=== PATIENT | female | born 1930 | race Caucasian/White ===

== ENCOUNTER 2016-02-21 17:25 | Emergency (ER) | payer MEDICARE, OTHER ==
--- NOTE | 2016-02-21 18:33 | RAD ---
Indication: Medial RIGHT knee pain and swelling. No known injury. Comparison: March 04, 2014 DEXA scan remarkable for osteoporosis. Technique: AP, tunnel, crosstable lateral, sunrise views RIGHT knee. Report: Normal articular alignment. Bone density appears decreased throughout. No cortical disruption or suspicious trabecular irregularity to suggest fracture. Negative for joint effusion. Tricompartmental osteophytosis. Moderately severe lateral joint space narrowing. Diffuse skeletal muscle atrophy. Unremarkable soft tissue contours. IMPRESSION: Negative for fracture. Osteoarthritis.
[2016-02-21 18:55] LABS: Hematocrit 40 % (35-47); Hemoglobin 12.2 g/dl (12.0-16.0); Mean Corpuscular HGB Conc 31 g/dl (31-36); Mean Corpuscular Hemoglobin 25 pg (27-31); Mean Corpuscular Volume 81 fL (80-97); Mean Platelet Volume 7 um3 (7.4-10.4); Red Blood Count 4.86 10^6/ul (4.0-5.4); Red Cell Distribution Width 17 % (10.5-15); White Blood Count 8.2 10^3/ul (3.5-10.8)
[2016-02-21 18:56] LABS: Comments Flag Yes
--- NOTE | 2016-02-21 19:07 | RAD ---
Indication: Back pain following injury. Comparison: May 22, 2013 CT. Technique: Noncontrast CT lumbar sacral spine. Multiplanar reformation. Report: 3.2 cm exophytic cyst lower pole LEFT kidney without gross change. Normal variant RIGHT extrarenal pelvis. Anterior and middle column and moderately severe compression fracture of L1 with worsening compared with the May 22, 2013 exam. Suggestion of new trabecular impaction at the superior endplate and minimal air vertebral hematoma favors acute component to the fracture. Up to 3 mm dorsal bulging of the middle column without significant resulting acquired spinal stenosis secondary to the fracture. No additional vertebral body or posterior element fractures within the [id number]. Normal vertebral alignment without significant spondylolisthesis at any level. T12-L1: Unremarkable for age. L1-L2: Mild annular disc bulge. Dorsal bulging of the inferior endplate of L1 and facet joint osteoarthritis results in moderate bilateral foraminal stenosis without significant change. L2-L3: Mild annular disc bulge and posterior element osteoarthritis results in mild alteration in the shape of the thecal sac without significant resulting central canal stenosis. Resulting mild bilateral foraminal stenosis without significant change. L3-L4: Mild annular disc bulge and posterior element osteoarthritis results in alteration in the shape of the thecal sac without significant central canal stenosis. Resulting mild RIGHT and moderate LEFT foraminal stenosis without significant change. L4-L5: Mild annular disc bulge and posterior element osteoarthritis results in mild alteration in the shape of the thecal sac without significant resulting central canal stenosis. Resulting slight bilateral foraminal stenosis without change. L5-S1: Unremarkable for age. 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 IMPRESSION: 1. Acute or subacute worsening of two column compression fracture at L1 as described. Minimal associated anterior and lateral paravertebral hematoma. 2. Dorsal bulging of the inferior endplate of L1 and facet joint osteoarthritis results in moderate bilateral foraminal stenosis at L1-L2 without significant change. 3. Additional multilocular degenerative findings with associated mild to moderate foraminal stenosis as described.
[2016-02-21 19:15] LABS: Albumin 3.6 g/dL (3.2-5.2); C Reactive Protein 33.03 mg/L (< 5.00); Calcium 8.9 mg/dL (8.6-10.3); EGFR African American 113.7 (>60); EGFR Non-African American 88.4 (>60); Globulin 3.5 g/dL (2-4); Potassium 4.2 mmol/L (3.5-5.0); Total Bilirubin 0.4 mg/dL (0.2-1.0); Total Protein 7.1 g/dL (6.4-8.9)
[2016-02-21 20:29] VITALS: BP 146/91
--- NOTE | 2016-02-21 23:48 | ED ---
Omari Nuñez Adam, scribed for Darrick Travis MD on 02/21/16 at 1752 . Complex/Multi-Sys Presentation - HPI Summary HPI Summary: Pt is an 85 year old female presenting with pain in her right knee and both flanks. She fell on (8 days ago) and has had the right knee pain and bilateral flank pain ever since. The knee pain is worse with inward rotation. She has pain in both flanks but denies any pain in the center of her back. She went to [address] [place] [address] today but they did not do any X-rays. She was sent to the ED because she was found to be in A Fib. She states that she has been on Tikosyn since December and her doctor in [place] discussed doing an ablation but has not done so. PMHx includes arthritis, osteoporosis, ICD, and HLD. - History Of Current Complaint Chief Complaint: EDDysrhythmPalp Time Seen by Provider: 02/21/16 17:38 Hx Obtained From: Patient Onset/Duration: Sudden Onset, Lasting Days, Still Present Timing: Constant Severity Currently: Moderate Severity Initially: Moderate Location: Pain At: - Right knee, both flanks Aggravating Factor(s): Rotating right knee inward Alleviating Factor(s): Nothing - Allergies/Home Medications Allergies/Adverse Reactions: Allergies Allergy/AdvReac Type Severity Reaction Status Date / Time Bee Venom Allergy Unknown Verified 02/21/16 17:32 Reaction Details Sulfa Antibiotics Allergy Rash Verified 02/21/16 17:32 IVP DYE Allergy Hives Uncoded 02/21/16 17:32 THYLIUM Allergy Hives Uncoded 02/21/16 17:32 PMH/Surg Hx/FS Hx/Imm Hx Endocrine/Hematology History: Denies: Hx Blood Disorders, Hx Blood Transfusions, Hx Bone Marrow Disease, Hx Diabetes, Hx Systemic Lupus Erythematosus, Hx Sickle Cell Disease, Hx Thyroid Disease, Hx Anemia, Hx Unexplained Bleeding, Other Endocrine/ Hematological Disorders Cardiovascular History: Reports: Hx Hypercholesterolemia, Hx Pacemaker/ICD - 9/ 14/15, Other Cardiovascular Problems/Disorders - Afib Denies: Hx Aneurysm, Hx Angina, Hx Angioplasty, Hx Auto Implanted Cardiovert Defib, Hx Cardiac Arrest, Hx Cardiomegaly, Hx Congenital Heart Disease, Hx Congestive Heart Failure, Hx Coronary Artery Disease, Hx Deep Vein Thrombosis, Hx Embolism, Hx Hypotension, Hx Hypertension, Hx Peripheral Vascular Disease, Hx Rheumatic Fever, Hx Syncope, Hx Valvular Heart Disease Respiratory History: Denies: Hx Asthma, Hx Chronic Bronchitis, Hx Chronic Obstructive Pulmonary Disease (COPD), Hx Cystic Fibrosis, Hx Lung Cancer, Hx Pleural Effusion, Hx Pneumonia, Hx Pulmonary Edema, Hx Pulmonary Embolism, Hx Seasonal Allergies, Hx Sleep Apnea, Other Respiratory Problems/Disorders GI History: Reports: Hx Diverticulosis, Hx Irritable Bowel, Other GI Disorders - duodenal ulcers Denies: Hx Cirrhosis, Hx Crohn's Disease, Hx Gall Bladder Disease, Hx Gastroesophageal Reflux Disease, Hx Gastrointestinal Bleed, Hx Jaundice, Hx Obstructive Bowel, Hx Ileostomy, Hx Pyloric Stenosis, Hx Ulcer History: Denies: Hx Acute Renal Failure, Hx Benign Prostatic Hyperplasia, Hx Chronic Renal Failure, Hx Dialysis, Hx Kidney Infection, Hx Kidney Stones, Other Problems/Disorders Musculoskeletal History: Reports: Hx Arthritis, Hx Back Problems, Hx Orthopedic Injury - compression fx lower back, Hx Osteoporosis Denies: Hx Bursitis, Hx Congenital Bone Abnormalities, Hx Fibromyalgia, Hx Gout, Hx Scoliosis, Hx Tendonitis, Other Musculoskeletal History Sensory History: Reports: Hx Cataracts, Hx Contacts or Glasses, Hx Hearing Aid Denies: Hx Eye Injury, Hx Eye Prosthesis, Hx Glaucoma, Hx Legally Blind, Hx Macular Degeneration, Hx Vision Problem, Hx Deafness, Hx Hearing Problem, Other Sensory Impairments Opthamlomology History: Reports: Hx Cataracts, Hx Contacts or Glasses Denies: Hx Eye Injury, Hx Eye Prosthesis, Hx Glaucoma, Hx Legally Blind, Hx Macular Degeneration, Hx Vision Problem, Other Sensory Impairments Neurological History: Reports: Hx Migraine Denies: Hx Dementia, Hx Developmental Delay, Hx Headaches, Hx Nerve Disease, Hx Seizures, Hx Spinal Cord Injury, Hx Transient Ischemic Attacks (TIA), Other Neuro Impairments/Disorders Psychiatric History: Denies: Hx Anxiety, Hx Attention Deficit Hyperactivity Disorder, Hx Eating Disorder, Hx Depression, Hx Panic Disorder, Hx Post Traumatic Stress Disorder, Hx Inpatient Treatment, Hx Community Mental Health Tx, Hx Schizophrenia, Hx Bipolar Disorder, Hx Suicide Attempt, Hx of Violent Episodes Against Others, Hx Substance Abuse, Other Psychiatric Issues/Disorders - Cancer History Hx Chemotherapy: No Hx Radiation Therapy: No Hx Palliative Cancer Treatment: No - Surgical History Surgery Procedure, Year, and Place: HYSTERECTOMY 1987. cataract removal Hx Anesthesia Reactions: No - Immunization History Date of Tetanus Vaccine: PT STATES UNSURE Date of Influenza Vaccine: NONE Infectious Disease History: No Infectious Disease History: Reports: Hx Shingles Denies: Hx Clostridium Difficile, Hx Hepatitis, Hx Human Immunodeficiency Virus (HIV), Hx of Known/Suspected MRSA, Hx Tuberculosis, Hx Known/Suspected VRE , Hx Known/Suspected VRSA, History Other Infectious Disease, Traveled Outside the [place] in Last 30 Days - Social History Occupation: Retired Lives: With Family - Alcohol Use: Rare Hx Substance Use: No Substance Use Type: Reports: None Hx Tobacco Use: Yes Smoking Status (MU): Former Smoker Have You Smoked in the Last Year: No Review of Systems Constitutional: Negative Negative: Fever Positive: Other - A Fib Positive: flank pain - Bilaterally Positive: Arthralgia - Right knee All Other Systems Reviewed And Are Negative: Yes Physical Exam Triage Information Reviewed: Yes Vital Signs On Initial Exam: Initial Vitals Temp Pulse Resp BP Pulse Ox 98.4 F 94 16 134/79 100 02/21/16 17:28 02/21/16 17:28 02/21/16 17:28 02/21/16 17:28 02/21/16 17:28 Vital Signs Reviewed: Yes Appearance: Positive: Well-Appearing, No Pain Distress Skin: Positive: Warm, Skin Color Reflects Adequate Perfusion, Dry Head/Face: Positive: Normal Head/Face Inspection Eyes: Positive: Normal ENT: Positive: Normal ENT inspection Neck: Positive: Supple, Nontender Respiratory/Lung Sounds: Positive: Clear to Auscultation, Breath Sounds Present Cardiovascular: Positive: RRR Abdomen Description: Positive: Nontender, Soft Bowel Sounds: Positive: Present Musculoskeletal: Positive: Other - Positive Eli's test in right knee Neurological: Positive: Normal Psychiatric: Positive: Normal, Affect/Mood Appropriate Diagnostics - Vital Signs Vital Signs Temp Pulse Resp BP Pulse Ox 02/21/16 17:28 98.4 F 94 16 134/79 100 - Laboratory Lab Results: Lab Results 02/21/16 02/21/16 Range/Units 18:30 18:30 WBC 8.2 (3.5-10.8) 10^3/ul RBC 4.86 (4.0-5.4) 10^6/ul Hgb 12.2 (12.0-16.0) g/dl Hct 40 (35-47) % MCV 81 (80-97) fL MCH 25 L (27-31) pg MCHC 31 (31-36) g/dl RDW 17 H (10.5-15) % Plt Count 238 (150-450) 10^3/ul MPV 7 L (7.4-10.4) um3 Neut % (Auto) 84.6 H (38-83) % Lymph % (Auto) 6.7 L (25-47) % Edgar % (Auto) 7.3 (1-9) % Eos % (Auto) 0.6 (0-6) % Baso % (Auto) 0.8 (0-2) % Absolute Neuts (auto) 6.9 (1.5-7.7) 10^3/ul Absolute Lymphs (auto) 0.5 L (1.0-4.8) 10^3/ul Absolute Monos (auto) 0.6 (0-0.8) 10^3/ul Absolute Eos (auto) 0 (0-0.6) 10^3/ul Absolute Basos (auto) 0.1 (0-0.2) 10^3/ul Absolute Nucleated RBC 0.01 10^3/ul Nucleated RBC % 0.1 Sodium 131 L (133-145) mmol/L Potassium 4.2 (3.5-5.0) mmol/L Chloride 99 L (101-111) mmol/L Carbon Dioxide 26 (22-32) mmol/L Anion Gap 6 (2-11) mmol/L BUN 16 (6-24) mg/dL Creatinine 0.64 (0.51-0.95) mg/dL Est GFR ( Amer) 113.7 (>60) Est GFR (Non-Af Amer) 88.4 (>60) BUN/Creatinine Ratio 25.0 H (8-20) Glucose 99 (70-100) mg/dL Calcium 8.9 (8.6-10.3) mg/dL Total Bilirubin 0.40 (0.2-1.0) mg/dL AST 15 (13-39) U/L ALT 9 (7-52) U/L Alkaline Phosphatase 46 (34-104) U/L C-Reactive Protein 33.03 H (< 5.00) mg/L Total Protein 7.1 (6.4-8.9) g/dL Albumin 3.6 (3.2-5.2) g/dL Globulin 3.5 (2-4) g/dL Albumin/Globulin Ratio 1.0 (1-3) Result Diagrams: 02/21/16 18:30 02/21/16 18:30 Lab Statement: Any lab studies that have been ordered have been reviewed, and results considered in the medical decision making process. - Radiology Right Knee Radiology Interpretation Completed By: Radiologist - IMPRESSION: NEGATIVE FOR FRACTURE. OSTEOARTHRITIS. - CT LUMBAR SPINE CT Interpretation Completed By: Radiologist - IMPRESSION: 1. Acute or subacute worsening of two column compression fracture at L1 as described. Minimal associated anterior and lateral paravertebral hematoma. 2. Dorsal bulging of the inferior endplate of L1 and facet joint osteoarthritis results in moderate bilateral foraminal stenosis at L1-L2 without significant change. 3. Additional multilocular degenerative findings with associated mild to moderate foraminal stenosis as described. - EKG 17:36 Cardiac Rate: NL - 99 BPM Ectopy: PACs - Occasional EKG Interpretation: Atrial-paced with occasional PAC Complex Multi-Symp Course/Dx Course Of Treatment: Ms. Gallardo was sent over from [facility] because she was in A- Fib (chronically) at a rapid rate. By the time she got here, her rate was controlled and remained so while she was here (monitored). She originally went to [facility] because she fell about a week ago and her back and right knee have been hurting since. She was noted on CT to have aggravated a compression fracture at L1 and will be treated symptomatically. - Diagnoses Provider Diagnoses: Compression fracture Discharge - Discharge Plan Condition: Stable Disposition: HOME Patient Education Materials: Vertebral Compression Fracture (ED) Referrals: Cassie Sim MD [Primary Care Provider] - Additional Instructions: Follow up with Dr. Sim. The documentation as recorded by the Omari goodman Adam accurately reflects the service I personally performed and the decisions made by me, Darrick Travis MD.
[2016-02-22 09:31] LABS: Manual Entry Verification BM; Rapid HIV INT CONT QC Line Present; Rapid HIV Kit Lot# F190062
[2016-02-23 10:37] LABS: Magnesium 1.8 mg/dL (1.9-2.7)
[2016-02-23 11:38] LABS: TSH (Thyroid Stimulating Horm) 5.19 mcIU/mL (0.34-5.60)
== END 2016-02-21 20:29 | disposition home or self-care (01) ==
LOC: ED 17:25
DX: S32.019A Unspecified fracture of first lumbar vertebra, initial encounter for closed fracture (principal); M17.11 Unilateral primary osteoarthritis, right knee; M25.561 Pain in right knee; I48.91 Unspecified atrial fibrillation; Z87.09 Personal history of other diseases of the respiratory system; Z86.79 Personal history of other diseases of the circulatory system; Z87.19 Personal history of other diseases of the digestive system; Z86.2 Personal history of diseases of the blood and blood-forming organs and certain disorders involving the immune mechanism; Z87.891 Personal history of nicotine dependence; W19.XXXA Unspecified fall, initial encounter; Y93.9 Activity, unspecified; Y92.9 Unspecified place or not applicable; Y99.9 Unspecified external cause status
CPT/HCPCS: 36415; 72131; 80053; 80074; 83735; 84443; 85025; 86140; 86703; 93005; 99282

== ENCOUNTER 2016-02-24 20:33 | Emergency (ER) | payer MEDICARE, OTHER ==
[2016-02-24 21:17] LABS: Hematocrit 42 % (35-47); Hemoglobin 12.9 g/dl (12.0-16.0); Mean Corpuscular HGB Conc 31 g/dl (31-36); Mean Corpuscular Hemoglobin 25 pg (27-31); Mean Corpuscular Volume 80 fL (80-97); Mean Platelet Volume 7 um3 (7.4-10.4); Red Blood Count 5.22 10^6/ul (4.0-5.4); Red Cell Distribution Width 17 % (10.5-15); White Blood Count 12.5 10^3/ul (3.5-10.8)
[2016-02-24 21:32] LABS: BUN/Creatinine Ratio 31.4 (8-20); Calcium 9.2 mg/dL (8.6-10.3); Comments Flag Yes; EGFR African American 102.5 (>60); EGFR Non-African American 79.7 (>60); Potassium 4.2 mmol/L (3.5-5.0)
[2016-02-24 21:33] LABS: Add Diff/Slide Review? Slide Review Added
--- NOTE | 2016-02-24 21:47 | ED ---
Margaret Nuñez Claudia, scribed for Emile Santana MD on 02/24/16 at 2048 . Palpitations / Dysrhythmia - HPI Summary HPI Summary: 85 year old female presents to the ED with dysrythmia. Pt notes that she was at her annual Physical Exam with Dr. Sim when she went into AFib( around 17: 00). She notes that she converted upon arrival to ED. Pt denied CP, SOB. PMHx of AFib is noted. - History of Current Complaint Chief Complaint: EDDysrhythmPalp Time Seen by Provider: 02/24/16 20:38 Hx Obtained From: Patient Onset/Duration: Sudden Onset, Resolved Character: Irregular - Afib Aggravating: Nothing Alleviating: Nothing - Allergy/Home Medications Allergies/Adverse Reactions: Allergies Allergy/AdvReac Type Severity Reaction Status Date / Time Bee Venom Allergy Unknown Verified 02/21/16 17:32 Reaction Details Sulfa Antibiotics Allergy Rash Verified 02/21/16 17:32 IVP DYE Allergy Hives Uncoded 02/21/16 17:32 THYLIUM Allergy Hives Uncoded 02/21/16 17:32 PMH/Surg Hx/FS Hx/Imm Hx Previously Healthy: Yes Endocrine/Hematology History: Denies: Hx Blood Disorders, Hx Blood Transfusions, Hx Bone Marrow Disease, Hx Diabetes, Hx Systemic Lupus Erythematosus, Hx Sickle Cell Disease, Hx Thyroid Disease, Hx Anemia, Hx Unexplained Bleeding, Other Endocrine/ Hematological Disorders Cardiovascular History: Reports: Hx Hypercholesterolemia, Hx Pacemaker/ICD - 9/ 14/15, Other Cardiovascular Problems/Disorders - Afib Denies: Hx Aneurysm, Hx Angina, Hx Angioplasty, Hx Auto Implanted Cardiovert Defib, Hx Cardiac Arrest, Hx Cardiomegaly, Hx Congenital Heart Disease, Hx Congestive Heart Failure, Hx Coronary Artery Disease, Hx Deep Vein Thrombosis, Hx Embolism, Hx Hypotension, Hx Hypertension, Hx Peripheral Vascular Disease, Hx Rheumatic Fever, Hx Syncope, Hx Valvular Heart Disease Respiratory History: Denies: Hx Asthma, Hx Chronic Bronchitis, Hx Chronic Obstructive Pulmonary Disease (COPD), Hx Cystic Fibrosis, Hx Lung Cancer, Hx Pleural Effusion, Hx Pneumonia, Hx Pulmonary Edema, Hx Pulmonary Embolism, Hx Seasonal Allergies, Hx Sleep Apnea, Other Respiratory Problems/Disorders GI History: Reports: Hx Diverticulosis, Hx Irritable Bowel, Other GI Disorders - duodenal ulcers Denies: Hx Cirrhosis, Hx Crohn's Disease, Hx Gall Bladder Disease, Hx Gastroesophageal Reflux Disease, Hx Gastrointestinal Bleed, Hx Jaundice, Hx Obstructive Bowel, Hx Ileostomy, Hx Pyloric Stenosis, Hx Ulcer History: Denies: Hx Acute Renal Failure, Hx Benign Prostatic Hyperplasia, Hx Chronic Renal Failure, Hx Dialysis, Hx Kidney Infection, Hx Kidney Stones, Other Problems/Disorders Musculoskeletal History: Reports: Hx Arthritis, Hx Back Problems, Hx Orthopedic Injury - compression fx lower back, Hx Osteoporosis Denies: Hx Bursitis, Hx Congenital Bone Abnormalities, Hx Fibromyalgia, Hx Gout, Hx Scoliosis, Hx Tendonitis, Other Musculoskeletal History Sensory History: Reports: Hx Cataracts, Hx Contacts or Glasses, Hx Hearing Aid Denies: Hx Eye Injury, Hx Eye Prosthesis, Hx Glaucoma, Hx Legally Blind, Hx Macular Degeneration, Hx Vision Problem, Hx Deafness, Hx Hearing Problem, Other Sensory Impairments Opthamlomology History: Reports: Hx Cataracts, Hx Contacts or Glasses Denies: Hx Eye Injury, Hx Eye Prosthesis, Hx Glaucoma, Hx Legally Blind, Hx Macular Degeneration, Hx Vision Problem, Other Sensory Impairments Neurological History: Reports: Hx Migraine Denies: Hx Dementia, Hx Developmental Delay, Hx Headaches, Hx Nerve Disease, Hx Seizures, Hx Spinal Cord Injury, Hx Transient Ischemic Attacks (TIA), Other Neuro Impairments/Disorders Psychiatric History: Denies: Hx Anxiety, Hx Attention Deficit Hyperactivity Disorder, Hx Eating Disorder, Hx Depression, Hx Panic Disorder, Hx Post Traumatic Stress Disorder, Hx Inpatient Treatment, Hx Community Mental Health Tx, Hx Schizophrenia, Hx Bipolar Disorder, Hx Suicide Attempt, Hx of Violent Episodes Against Others, Hx Substance Abuse, Other Psychiatric Issues/Disorders - Cancer History Hx Chemotherapy: No Hx Radiation Therapy: No Hx Palliative Cancer Treatment: No - Surgical History Surgery Procedure, Year, and Place: HYSTERECTOMY 1987. cataract removal Hx Anesthesia Reactions: No - Immunization History Date of Tetanus Vaccine: PT STATES UNSURE Date of Influenza Vaccine: NONE Infectious Disease History: Reports: Hx Shingles Denies: Hx Clostridium Difficile, Hx Hepatitis, Hx Human Immunodeficiency Virus (HIV), Hx of Known/Suspected MRSA, Hx Tuberculosis, Hx Known/Suspected VRE , Hx Known/Suspected VRSA, History Other Infectious Disease, Traveled Outside the [place] in Last 30 Days - Social History Occupation: Retired Lives: With Family Alcohol Use: Rare Hx Substance Use: No Substance Use Type: Reports: None Hx Tobacco Use: Yes Smoking Status (MU): Former Smoker Have You Smoked in the Last Year: No Review of Systems Constitutional: Negative Negative: Fever Eyes: Negative ENT: Negative Positive: Other - irregular rhythm- reolsv. Negative: Chest Pain - irregular rhythm- resolved upon arrival Negative: Shortness Of Breath Gastrointestinal: Negative Genitourinary: Negative Musculoskeletal: Negative Skin: Negative Neurological: Negative Psychological: Normal All Other Systems Reviewed And Are Negative: Yes Physical Exam Triage Information Reviewed: Yes Vital Signs On Initial Exam: Initial Vitals Temp Pulse Resp BP Pulse Ox 98.8 F 83 20 99/67 95 02/24/16 21:17 02/24/16 21:17 02/24/16 21:17 02/24/16 21:17 02/24/16 21:17 Vital Signs Reviewed: Yes Appearance: Positive: Well-Appearing, No Pain Distress Skin: Positive: Warm Eyes: Positive: MELBA ENT: Positive: Hearing grossly normal Neck: Positive: Supple Respiratory/Lung Sounds: Positive: Clear to Auscultation, Breath Sounds Present Cardiovascular: Positive: Normal, RRR Abdomen Description: Positive: Nontender, Soft Bowel Sounds: Positive: Present Neurological: Positive: Sensory/Motor Intact, Alert, Oriented to Person Place, Time Psychiatric: Positive: Normal AVPU Assessment: Alert Diagnostics - Vital Signs Vital Signs Temp Pulse Resp BP Pulse Ox 02/24/16 21:17 98.8 F 83 20 99/67 95 - Laboratory Lab Results: Lab Results 02/24/16 02/24/16 02/24/16 Range/Units 21:05 21:05 21:05 WBC 12.5 H (3.5-10.8) 10^3/ul RBC 5.22 (4.0-5.4) 10^6/ul Hgb 12.9 (12.0-16.0) g/dl Hct 42 (35-47) % MCV 80 (80-97) fL MCH 25 L (27-31) pg MCHC 31 (31-36) g/dl RDW 17 H (10.5-15) % Plt Count 275 (150-450) 10^3/ul MPV 7 L (7.4-10.4) um3 Neut % (Auto) 87.0 H (38-83) % Lymph % (Auto) 6.2 L (25-47) % [place] % (Auto) 6.1 (1-9) % Eos % (Auto) 0.2 (0-6) % Baso % (Auto) 0.5 (0-2) % Absolute Neuts (auto) 10.8 H (1.5-7.7) 10^3/ul Absolute Lymphs (auto) 0.8 L (1.0-4.8) 10^3/ul Absolute Monos (auto) 0.8 (0-0.8) 10^3/ul Absolute Eos (auto) 0 (0-0.6) 10^3/ul Absolute Basos (auto) 0.1 (0-0.2) 10^3/ul Absolute Nucleated RBC 0 10^3/ul Nucleated RBC % 0 INR (Anticoag Therapy) 1.36 H (0.89-1.11) Sodium 128 L (133-145) mmol/L Potassium 4.2 (3.5-5.0) mmol/L Chloride 105 (101-111) mmol/L Carbon Dioxide 26 (22-32) mmol/L Anion Gap -3 L (2-11) mmol/L BUN 22 (6-24) mg/dL Creatinine 0.70 (0.51-0.95) mg/dL Est GFR ( Amer) 102.5 (>60) Est GFR (Non-Af Amer) 79.7 (>60) BUN/Creatinine Ratio 31.4 H (8-20) Glucose 122 H (70-100) mg/dL Calcium 9.2 (8.6-10.3) mg/dL Magnesium 2.0 (1.9-2.7) mg/dL Result Diagrams: 02/24/16 21:05 02/24/16 21:05 Lab Statement: Any lab studies that have been ordered have been reviewed, and results considered in the medical decision making process. - EKG 20:39 Cardiac Rate: NL EKG Rhythm: Sinus Rhythm - NSR: 83 beats/min Re-Evaluation - Re-Evaluation 1 Re-Evaluation Time: 21:52 Change: Improved Comment: pt is still in nomal sinus rhythm Course/Dx - Course Assessment/Plan: Pt presents to ED wiht atrial fibrillation but has converted to NSR upon arriving in the ED. After some observation the pt is still in NSR and is agreeable with the plan to be d/c home with follow-up with PCP this week. - Diagnoses Provider Diagnoses: Paroxysmal atrial fibrillation Discharge - Discharge Plan Condition: Stable Disposition: HOME Patient Education Materials: Atrial Fibrillation (ED) Referrals: Cassie Sim MD [Primary Care Provider] - 2 Days (Please follow-up ) The documentation as recorded by the Margaret goodman Claudia accurately reflects the service I personally performed and the decisions made by me, Emile Santana MD.
[2016-02-24 22:10] VITALS: BP 106/76
== END 2016-02-24 22:09 | disposition home or self-care (01) ==
LOC: ED 20:33
DX: I48.91 Unspecified atrial fibrillation (principal); Z87.891 Personal history of nicotine dependence; E78.00 Pure hypercholesterolemia, unspecified; Z95.810 Presence of automatic (implantable) cardiac defibrillator; Z88.2 Allergy status to sulfonamides
CPT/HCPCS: 36415; 80048; 83735; 85025; 85610; 93005

== ENCOUNTER 2016-03-14 10:25 | Emergency (ER) | payer MEDICARE, OTHER ==
[2016-03-14] MEDS ORDERED: NS 0.9% 1000 ML* 1,000 ML IV SCH (13:15)
--- NOTE | 2016-03-14 14:02 | RAD ---
HISTORY: Weakness, falls COMPARISONS: None TECHNIQUE: Multiple contiguous axial CT scans were obtained of the cervical spine without intravenous contrast, with coronal and sagittal multiplanar reformations. FINDINGS: BRAIN: The visualized brain is unremarkable CENTRAL CANAL: Evaluation of the central canal is limited on CT technique; however, there is no obvious canalicular mass or epidural hemorrhage. ALIGNMENT: There is straightening of the cervical lordosis. VERTEBRAL BODIES: There is diffuse osteopenia. There is multilevel anterolateral marginal osteophyte formation. There is no displaced fracture. JOINTS: There is diffuse uncovertebral and facet osteoarthritis. There is osteoarthritis of the atlantoaxial articulation. MUSCULATURE: Unremarkable INTERVERTEBRAL DISCS: There is diffuse loss of intervertebral disc height. AXIAL IMAGES: C2-C3: There is no osseous neural foraminal narrowing or central canal stenosis. C3-C4: There is no osseous neural foraminal narrowing or central canal stenosis. C4-C5: There is no osseous neural foraminal narrowing or central canal stenosis. C5-C6: There is no osseous neural foraminal narrowing or central canal stenosis. C6-C7: There is no osseous neural foraminal narrowing or central canal stenosis. C7-T1: There is no osseous neural foraminal narrowing or central canal stenosis. SOFT TISSUES: The visualized soft tissues of the neck are unremarkable. The prevertebral fat stripe is preserved. There is a calcified granuloma of the right lung apex. OTHER: None. IMPRESSION: 1. OSTEOPENIA. 2. DEGENERATIVE DISC DISEASE AND OSTEOARTHRITIS. 3. NO ACUTE OSSEOUS INJURY TO THE CERVICAL SPINE
--- NOTE | 2016-03-14 14:03 | RAD ---
Indication: Fall, head injury. Patient on anticoagulants. CT of the brain was performed without IV contrast. Comparison is made with previous exam dated January 29, 2015 Ventricular structures are midline. No midline shift is noted. The extraction spaces are unremarkable. There is no evidence of intracranial mass or hemorrhage. No other high or low density lesions are identified. Mastoid air cells and paranasal sinuses are unremarkable. Sebaceous cyst is noted in the left frontal area. This is partially calcified. IMPRESSION: No intracranial mass or hemorrhage is noted.
--- NOTE | 2016-03-14 14:11 | RAD ---
Indication: Fall, weakness. CT of the lumbar spine was obtained in the axial plane. Sagittal and coronal reconstructed images were obtained. Comparison is made with previous exam dated February 21, 2016. There is 50-75% compression of the L1 vertebra. This has progressed slightly since 03-07. A small amount of paravertebral soft tissue swelling is noted. L2, L3, L4 and L5 demonstrates no compression. At L3-L4 broad-based protrusion flattens the thecal sac. Moderate facet arthropathy is noted. At L4-L5 broad-based extrusion flattens the thecal sac. No central or foraminal stenosis is noted. IMPRESSION: There has been compression of the L1 vertebra which is slightly progressed when compared to previous exam of February 21, 2016. Degenerative disc disease at L3-L4 is noted..
--- NOTE | 2016-03-14 14:12 | RAD ---
INDICATION: Repeated falls while ambulating. Chest and abdominal pain. COMPARISON: CT lumbar spine February 21, 2016 TECHNIQUE: Noncontrast axial source images were obtained from the thoracic inlet to the symphysis pubis . Lack of oral and intravenous contrast limits evaluation of the bowel and solid viscera. CHEST FINDINGS: Neck/thyroid: The visualized neck to include the thyroid appear normal. Chest wall: There are no acute abnormalities of the bony thorax or chest wall. There is no supraclavicular, infraclavicular, or axillary lymphadenopathy. Lungs : There are no pulmonary parenchymal masses or infiltrates. The pulmonary interstitium appears normal for age. There is mild hyperinflation. There are no endobronchial lesions. Cardiomediastinal structures: The heart is normal in size. There is no pericardial effusion. There is no evidence of aortic aneurysm or dissection. There are coronary calcifications. There is pacemaker artifact. The pulmonary vessels appear normal. There is no mediastinal or hilar adenopathy. The esophagus appears normal. Pleura : There are no pleural-based masses or effusions. ABDOMINAL/PELVIC FINDINGS: Liver: The liver is normal in size. Noncontrast imaging shows no evidence of a mass. There is no ductal dilatation. Gallbladder: There are no calcified gallstones. There is no evidence of wall thickening or pericholecystic fluid. Spleen: The spleen is enlarged. There is no focal mass identified on noncontrast imaging. The spleen measures 15 cm in maximum transverse dimension. Pancreas: There are no focal pancreatic abnormalities identified on noncontrast imaging. Adrenal glands: There is no evidence of adrenal mass. Kidneys: The kidneys are normal in size and position. There are presumed parapelvic cysts and there is a dominant left renal cortical cyst measuring 2.9 cm.. Adenopathy: There is no evidence of adenopathy by size criteria. Fluid collections: There are no free or localized fluid collections. Vessels:The aorta and IVC appear normal GI tract: Noncontrast imaging of the bowel demonstrates scattered diverticula but no additional bowel abnormality. There is no obstruction. Pelvic organs: Hysterectomy. Bladder: There are no bladder masses. Abdominal and pelvic soft tissues: The extraperitoneal abdominal and pelvic soft tissues appear normal.. Osseous structures: There is a marked compression deformity of L1 which is described on the separate lumbosacral spine report. This is also been reported previously. IMPRESSION: 1. NONCONTRAST IMAGING DEMONSTRATES NO FREE FLUID OR ACUTE TRAUMATIC INJURY TO THE BONY THORAX OR THE SOLID VISCERA. THERE IS AN OLD L1 COMPRESSION FRACTURE AND THERE ARE SPONDYLITIC CHANGE LUMBAR SPINE DESCRIBED IN A SEPARATE REPORT. 2. MODERATE SPLENOMEGALY.
[2016-03-14 14:37] LABS: Hematocrit 42 % (35-47); Hemoglobin 13.4 g/dl (12.0-16.0); Mean Corpuscular HGB Conc 32 g/dl (31-36); Mean Corpuscular Hemoglobin 26 pg (27-31); Mean Corpuscular Volume 81 fL (80-97); Mean Platelet Volume 8 um3 (7.4-10.4); Red Blood Count 5.21 10^6/ul (4.0-5.4); Red Cell Distribution Width 18 % (10.5-15); White Blood Count 9.1 10^3/ul (3.5-10.8)
[2016-03-14 14:51] LABS: Albumin 4.5 g/dL (3.2-5.2); BUN/Creatinine Ratio 28.6 (8-20); C Reactive Protein 4.76 mg/L (< 5.00); Calcium 9.8 mg/dL (8.6-10.3); EGFR African American 91.8 (>60); EGFR Non-African American 71.4 (>60); Globulin 3.9 g/dL (2-4); Magnesium 2.4 mg/dL (1.9-2.7); Potassium 4.3 mmol/L (3.5-5.0); Total Bilirubin 0.8 mg/dL (0.2-1.0); Total Protein 8.4 g/dL (6.4-8.9)
[2016-03-14 15:17] LABS: TSH (Thyroid Stimulating Horm) 3.14 mcIU/mL (0.34-5.60)
[2016-03-14 15:30] LABS: Urine Bacteria 3+ (Absent); Urine Bilirubin Negative (Negative); Urine Glucose Negative (Negative); Urine Nitrite Positive (Negative)
[2016-03-14] MEDS ORDERED: Amoxicillin/Clavulanate TAB* 875 MG PO ONE (16:34)
--- NOTE | 2016-03-14 16:42 | ED ---
Bandar Nuñez Matthew, scribed for Cornelio Blanco MD on 03/14/16 at 1329 . Adult Trauma - HPI Summary HPI Summary: An 85 y/o female presents to the ED after sustaining a mechanical fall at 10:35 this morning. The pain is rated 7/10 in severity. The patient woke-up in the middle of the night to urinate. She was able to get out of her bed and walk to the bathroom; however she was rushing to urinate and tripped over her walker. Associated symptoms include left sided rib pain and ecchymosis. The patient denies head trauma, LOC, headache, LE weakness, LE numbness, and urinary incontinence. She has pain with deep breaths and coughing. After the fall, the patient was able to get up on her own and get back to bed. She does not remember how she got up and once she was back in bed, she was unable to sleep. Since 02/13/16, the patient has fallen 6 times and the falls seem to occur when she quickly turns. The patient is currently taking blood thinners, and she has a Hx of AFib. Hx of 4 fractured vertebrae. - History of Current Complaint Chief Complaint: EDGeneral Stated Complaint: FALL / LT RIB PAIN Time Seen by Provider: 03/14/16 12:26 Hx Obtained From: Patient ?: No Mechanism of Injury: Fall Ambulatory at the Scene: Yes Loss of Consciousness: no loss of consciousness Onset/Duration: Started Hours Ago, Traumatic, Still Present Onset of Pain: Immediate Onset Severity: Moderate Current Severity: Moderate Pain Intensity: 7 Pain Scale Used: 0-10 Numeric Location: Chest - left side of the ribs Aggravating Factor(s): Movement, Deep Breaths, Cough Alleviating Factor(s): Nothing Associated Signs & Symptoms: Positive: Ecchymosis, Other: - Left sided rib pain. Negative: SOB, Chest Pain, Loss of Consciousness, Numbness/Weakness - Additional Pertinent History Primary Care Physician: LIONEL - Allergy/Home Medications Allergies/Adverse Reactions: Allergies Allergy/AdvReac Type Severity Reaction Status Date / Time Bee Venom Allergy Unknown Verified 02/21/16 17:32 Reaction Details Sulfa Antibiotics Allergy Rash Verified 02/21/16 17:32 IVP DYE Allergy Hives Uncoded 02/21/16 17:32 THYLIUM Allergy Hives Uncoded 02/21/16 17:32 PMH/Surg Hx/FS Hx/Imm Hx Endocrine/Hematology History: Denies: Hx Blood Disorders, Hx Blood Transfusions, Hx Bone Marrow Disease, Hx Diabetes, Hx Systemic Lupus Erythematosus, Hx Sickle Cell Disease, Hx Thyroid Disease, Hx Anemia, Hx Unexplained Bleeding, Other Endocrine/ Hematological Disorders Cardiovascular History: Reports: Hx Hypercholesterolemia, Hx Pacemaker/ICD - 9/ 14/15, Other Cardiovascular Problems/Disorders - Afib Denies: Hx Aneurysm, Hx Angina, Hx Angioplasty, Hx Auto Implanted Cardiovert Defib, Hx Cardiac Arrest, Hx Cardiomegaly, Hx Congenital Heart Disease, Hx Congestive Heart Failure, Hx Coronary Artery Disease, Hx Deep Vein Thrombosis, Hx Embolism, Hx Hypotension, Hx Hypertension, Hx Peripheral Vascular Disease, Hx Rheumatic Fever, Hx Syncope, Hx Valvular Heart Disease Respiratory History: Denies: Hx Asthma, Hx Chronic Bronchitis, Hx Chronic Obstructive Pulmonary Disease (COPD), Hx Cystic Fibrosis, Hx Lung Cancer, Hx Pleural Effusion, Hx Pneumonia, Hx Pulmonary Edema, Hx Pulmonary Embolism, Hx Seasonal Allergies, Hx Sleep Apnea, Other Respiratory Problems/Disorders GI History: Reports: Hx Diverticulosis, Hx Irritable Bowel, Other GI Disorders - duodenal ulcers Denies: Hx Cirrhosis, Hx Crohn's Disease, Hx Gall Bladder Disease, Hx Gastroesophageal Reflux Disease, Hx Gastrointestinal Bleed, Hx Jaundice, Hx Obstructive Bowel, Hx Ileostomy, Hx Pyloric Stenosis, Hx Ulcer History: Denies: Hx Acute Renal Failure, Hx Benign Prostatic Hyperplasia, Hx Chronic Renal Failure, Hx Dialysis, Hx Kidney Infection, Hx Kidney Stones, Other Problems/Disorders Musculoskeletal History: Reports: Hx Arthritis, Hx Back Problems, Hx Orthopedic Injury - compression fx lower back, Hx Osteoporosis Denies: Hx Bursitis, Hx Congenital Bone Abnormalities, Hx Fibromyalgia, Hx Gout, Hx Scoliosis, Hx Tendonitis, Other Musculoskeletal History Sensory History: Reports: Hx Cataracts, Hx Contacts or Glasses, Hx Hearing Aid Denies: Hx Eye Injury, Hx Eye Prosthesis, Hx Glaucoma, Hx Legally Blind, Hx Macular Degeneration, Hx Vision Problem, Hx Deafness, Hx Hearing Problem, Other Sensory Impairments Opthamlomology History: Reports: Hx Cataracts, Hx Contacts or Glasses Denies: Hx Eye Injury, Hx Eye Prosthesis, Hx Glaucoma, Hx Legally Blind, Hx Macular Degeneration, Hx Vision Problem, Other Sensory Impairments Neurological History: Reports: Hx Migraine Denies: Hx Dementia, Hx Developmental Delay, Hx Headaches, Hx Nerve Disease, Hx Seizures, Hx Spinal Cord Injury, Hx Transient Ischemic Attacks (TIA), Other Neuro Impairments/Disorders Psychiatric History: Denies: Hx Anxiety, Hx Attention Deficit Hyperactivity Disorder, Hx Eating Disorder, Hx Depression, Hx Panic Disorder, Hx Post Traumatic Stress Disorder, Hx Inpatient Treatment, Hx Community Mental Health Tx, Hx Schizophrenia, Hx Bipolar Disorder, Hx Suicide Attempt, Hx of Violent Episodes Against Others, Hx Substance Abuse, Other Psychiatric Issues/Disorders - Cancer History Hx Chemotherapy: No Hx Radiation Therapy: No Hx Palliative Cancer Treatment: No - Surgical History Surgery Procedure, Year, and Place: HYSTERECTOMY 1987. cataract removal Hx Anesthesia Reactions: No - Immunization History Date of Tetanus Vaccine: PT STATES UNSURE Date of Influenza Vaccine: NONE Infectious Disease History: No Infectious Disease History: Reports: Hx Shingles Denies: Hx Clostridium Difficile, Hx Hepatitis, Hx Human Immunodeficiency Virus (HIV), Hx of Known/Suspected MRSA, Hx Tuberculosis, Hx Known/Suspected VRE , Hx Known/Suspected VRSA, History Other Infectious Disease, Traveled Outside the [place] in Last 30 Days - Family History Known Family History: Positive: Cardiac Disease Family History: FHx of Breast CA - Social History Alcohol Use: Rare Hx Substance Use: No Substance Use Type: Reports: None Hx Tobacco Use: Yes Smoking Status (MU): Former Smoker Have You Smoked in the Last Year: No Review of Systems Constitutional: Negative Eyes: Negative ENT: Negative Cardiovascular: Negative Respiratory: Negative Gastrointestinal: Negative Genitourinary: Negative Negative: incontinence Musculoskeletal: Other - Ecchymosis of the left sided of her ribs Positive: Myalgia - Left Sided Rib Pain Skin: Negative Neurological: Negative Negative: Numbness Psychological: Normal All Other Systems Reviewed And Are Negative: Yes Physical Exam Triage Information Reviewed: Yes Vital Signs On Initial Exam: Initial Vitals Temp Pulse Resp BP Pulse Ox 98.6 F 76 20 114/62 100 03/14/16 10:31 03/14/16 10:31 03/14/16 10:31 03/14/16 10:31 03/14/16 10:31 Vital Signs Reviewed: Yes Appearance: Positive: Well-Appearing, No Pain Distress Skin: Positive: Warm, Dry, Other - ecchymosis on the left side of the ribs Head/Face: Positive: Normal Head/Face Inspection Eyes: Positive: EOMI, MELBA ENT: Positive: Normal ENT inspection Neck: Positive: Supple, Nontender Respiratory/Lung Sounds: Positive: Clear to Auscultation, Breath Sounds Present Cardiovascular: Positive: RRR Abdomen Description: Positive: Nontender, Soft Bowel Sounds: Positive: Present Musculoskeletal: Positive: Strength/ROM Intact, Pain @ - left ribs Neurological: Positive: Normal, Sensory/Motor Intact, Alert, Oriented to Person Place, Time Psychiatric: Positive: Normal, Affect/Mood Appropriate - Mick Coma Scale Coma Scale Total: 15 Diagnostics - Vital Signs Vital Signs Temp Pulse Resp BP Pulse Ox 03/14/16 11:19 99.3 F 81 16 108/58 98 03/14/16 10:31 98.6 F 76 20 114/62 100 - Laboratory Lab Results: Lab Results 03/14/16 03/14/16 03/14/16 Range/Units 14:20 14:20 14:20 WBC 9.1 (3.5-10.8) 10^3/ul RBC 5.21 (4.0-5.4) 10^6/ul Hgb 13.4 (12.0-16.0) g/dl Hct 42 (35-47) % MCV 81 (80-97) fL MCH 26 L (27-31) pg MCHC 32 (31-36) g/dl RDW 18 H (10.5-15) % Plt Count 262 (150-450) 10^3/ul MPV 8 (7.4-10.4) um3 Neut % (Auto) 85.5 H (38-83) % Lymph % (Auto) 7.6 L (25-47) % Dickey % (Auto) 6.4 (1-9) % Eos % (Auto) 0.2 (0-6) % Baso % (Auto) 0.3 (0-2) % Absolute Neuts (auto) 7.7 (1.5-7.7) 10^3/ul Absolute Lymphs (auto) 0.7 L (1.0-4.8) 10^3/ul Absolute Monos (auto) 0.6 (0-0.8) 10^3/ul Absolute Eos (auto) 0 (0-0.6) 10^3/ul Absolute Basos (auto) 0 (0-0.2) 10^3/ul Absolute Nucleated RBC 0 10^3/ul Nucleated RBC % 0 INR (Anticoag Therapy) 1.14 H (0.89-1.11) APTT 48.2 H (26.0-36.3) seconds Sodium 130 L (133-145) mmol/L Potassium 4.3 (3.5-5.0) mmol/L Chloride 96 L (101-111) mmol/L Carbon Dioxide 29 (22-32) mmol/L Anion Gap 5 (2-11) mmol/L BUN 22 (6-24) mg/dL Creatinine 0.77 (0.51-0.95) mg/dL Est GFR ( Amer) 91.8 (>60) Est GFR (Non-Af Amer) 71.4 (>60) BUN/Creatinine Ratio 28.6 H (8-20) Glucose 110 H (70-100) mg/dL Lactic Acid (0.5-2.0) mmol/L Calcium 9.8 (8.6-10.3) mg/dL Magnesium 2.4 (1.9-2.7) mg/dL Total Bilirubin 0.80 (0.2-1.0) mg/dL AST 15 (13-39) U/L ALT 9 (7-52) U/L Alkaline Phosphatase 64 (34-104) U/L Total Creatine Kinase 18 (10-223) U/L CK-MB (CK-2) 0.9 (0.6-6.3) ng/mL Troponin I 0.00 (<0.04) ng/mL C-Reactive Protein 4.76 (< 5.00) mg/L B-Natriuretic Peptide ( - 100) pg/mL Total Protein 8.4 (6.4-8.9) g/dL Albumin 4.5 (3.2-5.2) g/dL Globulin 3.9 (2-4) g/dL Albumin/Globulin Ratio 1.2 (1-3) Lipase 17 (11.0-82.0) U/L TSH 3.14 (0.34-5.60) mcIU/mL Urine Color Urine Appearance Urine pH (5-9) Ur Specific [place] (1.010-1.030) Urine Protein (Negative) Urine Ketones (Negative) Urine Blood (Negative) Urine Nitrate (Negative) Urine Bilirubin (Negative) Urine Urobilinogen (Negative) Ur Leukocyte Esterase (Negative) Urine WBC (Auto) (Absent) Urine RBC (Auto) (Absent) Urine Bacteria (Absent) Urine Glucose (Negative) 03/14/16 03/14/16 03/14/16 Range/Units 14:20 14:20 15:13 WBC (3.5-10.8) 10^3/ul RBC (4.0-5.4) 10^6/ul Hgb (12.0-16.0) g/dl Hct (35-47) % MCV (80-97) fL MCH (27-31) pg MCHC (31-36) g/dl RDW (10.5-15) % Plt Count (150-450) 10^3/ul MPV (7.4-10.4) um3 Neut % (Auto) (38-83) % Lymph % (Auto) (25-47) % Dickey % (Auto) (1-9) % Eos % (Auto) (0-6) % Baso % (Auto) (0-2) % Absolute Neuts (auto) (1.5-7.7) 10^3/ul Absolute Lymphs (auto) (1.0-4.8) 10^3/ul Absolute Monos (auto) (0-0.8) 10^3/ul Absolute Eos (auto) (0-0.6) 10^3/ul Absolute Basos (auto) (0-0.2) 10^3/ul Absolute Nucleated RBC 10^3/ul Nucleated RBC % INR (Anticoag Therapy) (0.89-1.11) APTT (26.0-36.3) seconds Sodium (133-145) mmol/L Potassium (3.5-5.0) mmol/L Chloride (101-111) mmol/L Carbon Dioxide (22-32) mmol/L Anion Gap (2-11) mmol/L BUN (6-24) mg/dL Creatinine (0.51-0.95) mg/dL Est GFR ( Amer) (>60) Est GFR (Non-Af Amer) (>60) BUN/Creatinine Ratio (8-20) Glucose (70-100) mg/dL Lactic Acid 0.9 (0.5-2.0) mmol/L Calcium (8.6-10.3) mg/dL Magnesium (1.9-2.7) mg/dL Total Bilirubin (0.2-1.0) mg/dL AST (13-39) U/L ALT (7-52) U/L Alkaline Phosphatase (34-104) U/L Total Creatine Kinase (10-223) U/L CK-MB (CK-2) (0.6-6.3) ng/mL Troponin I (<0.04) ng/mL C-Reactive Protein (< 5.00) mg/L B-Natriuretic Peptide 84 ( - 100) pg/mL Total Protein (6.4-8.9) g/dL Albumin (3.2-5.2) g/dL Globulin (2-4) g/dL Albumin/Globulin Ratio (1-3) Lipase (11.0-82.0) U/L TSH (0.34-5.60) mcIU/mL Urine Color Yellow Urine Appearance Cloudy Urine pH 6.0 (5-9) Ur Specific [place] 1.021 (1.010-1.030) Urine Protein Negative (Negative) Urine Ketones Negative (Negative) Urine Blood 2+ H (Negative) Urine Nitrate Positive H (Negative) Urine Bilirubin Negative (Negative) Urine Urobilinogen Negative (Negative) Ur Leukocyte Esterase 2+ H (Negative) Urine WBC (Auto) 3+(>20/hpf) H (Absent) Urine RBC (Auto) 2+(6-10/hpf) H (Absent) Urine Bacteria 3+ H (Absent) Urine Glucose Negative (Negative) Result Diagrams: 03/14/16 14:20 03/14/16 14:20 Lab Statement: Any lab studies that have been ordered have been reviewed, and results considered in the medical decision making process. - CT Brain CT CT Interpretation: No Acute Changes - IMPRESSION: No intracranial mass or hemorrhage is noted. CT Interpretation Completed By: Radiologist Chest/Abdmen/Pelivs CT CT Interpretation: Positive (See Comments) - IMPRESSION: 1. NONCONTRAST IMAGING DEMONSTRATES NO FREE FLUID OR ACUTE TRAUMATIC INJURY TO THE BONY THORAX OR THE SOLID VISCERA. THERE IS AN OLD L1 COMPRESSION FRACTURE AND THERE ARE SPONDYLITIC CHANGE LUMBAR SPINE DESCRIBED IN A SEPARATE REPORT. 2. MODERATE SPLENOMEGALY. CT Interpretation Completed By: Radiologist C-Spine CT CT Interpretation: No Acute Changes - IMPRESSION: 1. OSTEOPENIA. 2. DEGENERATIVE DISC DISEASE AND OSTEOARTHRITIS. 3. NO ACUTE OSSEOUS INJURY TO THE CERVICAL SPINE CT Interpretation Completed By: Radiologist L-Spine CT CT Interpretation: Positive (See Comments) - IMPRESSION: There has been compression of the L1 vertebra which is slightly progressed when compared to previous exam of February 21, 2016. Degenerative disc disease at L3-L4 is noted.. CT Interpretation Completed By: Radiologist Adult Trauma Course/Dx - Course Assessment/Plan: WEL IN ED. DISCUSSED RESULTS WITH PATIENT/FAMILY TO INCLUDE THE SPLENOMEGALLY. NO EVIDENCE OF SPLEEN LACERATION. DISCUSSED SPLEEN U/S WITH PATIENT, SHE PREFERS NO U/S AT THIS TIME TO GO HOME AND F/U WITH PMD. RX AUGMENTIN FOR UTI. PATIENT MAY BENEFIT FROM PT TO HELP WITH STRENGTHENING AND BALANCE TO HELP AVOID FALLS. DISCHARGE HOME STABLE. - Diagnoses Provider Diagnoses: UTI (urinary tract infection), Rib contusion, Splenomegaly Discharge - Discharge Plan Condition: Stable Disposition: HOME Prescriptions: Amoxicillin/Clavulanate TAB* [Augmentin TAB 875*] 875 mg PO BID #19 tab Patient Education Materials: Urinary Tract Infection in Women (ED), Rib Contusion (ED) Referrals: Cassie Sim MD [Primary Care Provider] - Additional Instructions: FOLLOW UP WITH YOUR DOCTOR. YOUR SPLEEN WAS MILDLY ENLARGED. THERE WAS NO EVIDENCE OF THE SPLEEN BLEEDING AT THIS TIME. DISCUSS PHYSICAL THERAPY FOR STRENGTHENING AND BALANCE TO AVOID ANY MORE FALLS. RETURN TO THE EMERGENCY DEPARTMENT FOR ANY WORSENING OF YOUR CONDITION; SHORTNESS OF BREATH, YOU FEEL ILL OR QUESTIONS OR CONCERNS. The documentation as recorded by the Bandar goodman Matthew accurately reflects the service I personally performed and the decisions made by me, Cornelio Blanco MD. Addendum entered and electronically signed by Latasha De León PA 03/17/16 07: 34: ED Addendum Addendum: Patient placed on Augmetin for UTI at d/c which final culture shows is sensitive too.
[2016-03-14 17:00] VITALS: BP 154/76
== END 2016-03-14 16:59 | disposition home or self-care (01) ==
LOC: ED 10:25
DX: S20.219A Contusion of unspecified front wall of thorax, initial encounter (principal); R07.81 Pleurodynia; Z87.891 Personal history of nicotine dependence; R16.1 Splenomegaly, not elsewhere classified; W19.XXXA Unspecified fall, initial encounter; Y93.9 Activity, unspecified; Y92.9 Unspecified place or not applicable; Y99.9 Unspecified external cause status
CPT/HCPCS: 36415; 70450; 71250; 72125; 72131; 74176; 80053; 81003; 81015; 82550; 82553; 83605; 83690; 83735; 83880; 84443; 84484; 85025; 85610; 85730; 86140; 87077; 87086; 87186; 96374; 99282; A9270-GY

== ENCOUNTER 2016-05-07 14:04 | Emergency (ER) | payer MEDICARE, OTHER ==
[2016-05-07 14:17] VITALS: BP 116/63
[2016-05-07] MEDS ORDERED: oxyCODONE TAB* 5 MG TAB PO ONE (15:44)
--- NOTE | 2016-05-07 15:50 | ED ---
Back Pain - HPI Summary HPI Summary: 85F presents with back pain for a week. She states she fell last week twice. She had xray done elsewhere last week s/p the fall. She states the pain has been getting worst. It is located on either side of her lower back and does not radiate anywhere. She denies any pain into her legs. She denies any loss of bowel or bladder or saddle paraesthesia. She denies any numbness or tingling into her legs. She states that she does not have a history of back pain but states she did fracture her back many years ago but that has healed. She states she has never had back pain like this before. She has been take hydrocodone without relief every 4 hours. She states that muscle relaxers do not work for her. - History of Current Complaint Chief Complaint: EDBackInjuryPain Stated Complaint: FALL BACK PAIN Time Seen by Provider: 05/07/16 14:46 Pain Intensity: 7 - Allergies/Home Medications Allergies/Adverse Reactions: Allergies Allergy/AdvReac Type Severity Reaction Status Date / Time Bee Venom Allergy Unknown Verified 05/07/16 14:18 Reaction Details Sulfa Antibiotics Allergy Rash Verified 05/07/16 14:18 IVP DYE Allergy Hives Uncoded 05/07/16 14:18 THYLIUM Allergy Hives Uncoded 05/07/16 14:18 PMH/Surg Hx/FS Hx/Imm Hx Endocrine/Hematology History: Denies: Hx Blood Disorders, Hx Blood Transfusions, Hx Bone Marrow Disease, Hx Diabetes, Hx Systemic Lupus Erythematosus, Hx Sickle Cell Disease, Hx Thyroid Disease, Hx Anemia, Hx Unexplained Bleeding, Other Endocrine/ Hematological Disorders Cardiovascular History: Reports: Hx Hypercholesterolemia, Hx Pacemaker/ICD - 9/ 14/15, Other Cardiovascular Problems/Disorders - Afib Denies: Hx Aneurysm, Hx Angina, Hx Angioplasty, Hx Auto Implanted Cardiovert Defib, Hx Cardiac Arrest, Hx Cardiomegaly, Hx Congenital Heart Disease, Hx Congestive Heart Failure, Hx Coronary Artery Disease, Hx Deep Vein Thrombosis, Hx Embolism, Hx Hypotension, Hx Hypertension, Hx Peripheral Vascular Disease, Hx Rheumatic Fever, Hx Syncope, Hx Valvular Heart Disease Respiratory History: Denies: Hx Asthma, Hx Chronic Bronchitis, Hx Chronic Obstructive Pulmonary Disease (COPD), Hx Cystic Fibrosis, Hx Lung Cancer, Hx Pleural Effusion, Hx Pneumonia, Hx Pulmonary Edema, Hx Pulmonary Embolism, Hx Seasonal Allergies, Hx Sleep Apnea, Other Respiratory Problems/Disorders GI History: Reports: Hx Diverticulosis, Hx Irritable Bowel, Other GI Disorders - duodenal ulcers Denies: Hx Cirrhosis, Hx Crohn's Disease, Hx Gall Bladder Disease, Hx Gastroesophageal Reflux Disease, Hx Gastrointestinal Bleed, Hx Jaundice, Hx Obstructive Bowel, Hx Ileostomy, Hx Pyloric Stenosis, Hx Ulcer History: Denies: Hx Acute Renal Failure, Hx Benign Prostatic Hyperplasia, Hx Chronic Renal Failure, Hx Dialysis, Hx Kidney Infection, Hx Kidney Stones, Other Problems/Disorders Musculoskeletal History: Reports: Hx Arthritis, Hx Back Problems, Hx Orthopedic Injury - compression fx lower back, Hx Osteoporosis Denies: Hx Bursitis, Hx Congenital Bone Abnormalities, Hx Fibromyalgia, Hx Gout, Hx Scoliosis, Hx Tendonitis, Other Musculoskeletal History Sensory History: Reports: Hx Cataracts, Hx Contacts or Glasses, Hx Hearing Aid Denies: Hx Eye Injury, Hx Eye Prosthesis, Hx Glaucoma, Hx Legally Blind, Hx Macular Degeneration, Hx Vision Problem, Hx Deafness, Hx Hearing Problem, Other Sensory Impairments Opthamlomology History: Reports: Hx Cataracts, Hx Contacts or Glasses Denies: Hx Eye Injury, Hx Eye Prosthesis, Hx Glaucoma, Hx Legally Blind, Hx Macular Degeneration, Hx Vision Problem, Other Sensory Impairments Neurological History: Reports: Hx Migraine Denies: Hx Dementia, Hx Developmental Delay, Hx Headaches, Hx Nerve Disease, Hx Seizures, Hx Spinal Cord Injury, Hx Transient Ischemic Attacks (TIA), Other Neuro Impairments/Disorders Psychiatric History: Denies: Hx Anxiety, Hx Attention Deficit Hyperactivity Disorder, Hx Eating Disorder, Hx Depression, Hx Panic Disorder, Hx Post Traumatic Stress Disorder, Hx Inpatient Treatment, Hx Community Mental Health Tx, Hx Schizophrenia, Hx Bipolar Disorder, Hx Suicide Attempt, Hx of Violent Episodes Against Others, Hx Substance Abuse, Other Psychiatric Issues/Disorders - Cancer History Hx Chemotherapy: No Hx Radiation Therapy: No Hx Palliative Cancer Treatment: No - Surgical History Surgery Procedure, Year, and Place: HYSTERECTOMY 1987. cataract removal Hx Anesthesia Reactions: No - Immunization History Date of Tetanus Vaccine: PT STATES UNSURE Date of Influenza Vaccine: NONE Infectious Disease History: No Infectious Disease History: Reports: Hx Shingles Denies: Hx Clostridium Difficile, Hx Hepatitis, Hx Human Immunodeficiency Virus (HIV), Hx of Known/Suspected MRSA, Hx Tuberculosis, Hx Known/Suspected VRE , Hx Known/Suspected VRSA, History Other Infectious Disease, Traveled Outside the [place] in Last 30 Days - Family History Known Family History: Positive: Cardiac Disease Family History: FHx of Breast CA - Social History Alcohol Use: None Hx Substance Use: No Substance Use Type: Reports: None, Other Substance Use Comment - Amount & Last Used: prescription oxycodone Hx Tobacco Use: Yes Smoking Status (MU): Former Smoker Have You Smoked in the Last Year: No Review of Systems Negative: Fever Negative: Chest Pain Negative: Shortness Of Breath Positive: Myalgia - back pain All Other Systems Reviewed And Are Negative: Yes Physical Exam Triage Information Reviewed: Yes Vital Signs On Initial Exam: Initial Vitals Temp Pulse Resp BP Pulse Ox 98.6 F 65 18 116/63 94 05/07/16 14:13 05/07/16 14:13 05/07/16 14:13 05/07/16 14:13 05/07/16 14:13 Vital Signs Reviewed: Yes Appearance: Positive: Well-Appearing Skin: Positive: Warm, Dry Head/Face: Positive: Normal Head/Face Inspection Eyes: Positive: Normal, Conjunctiva Clear Respiratory/Lung Sounds: Positive: Clear to Auscultation, Breath Sounds Present Cardiovascular: Positive: Normal, RRR Musculoskeletal: Positive: Limited @ - back due to pain, Other - no midline tenderness, tender to each side of lower back, neg SLR, good pulses Diagnostics - Vital Signs Vital Signs Temp Pulse Resp BP Pulse Ox 05/07/16 14:13 98.6 F 65 18 116/63 94 - Laboratory Lab Statement: Any lab studies that have been ordered have been reviewed, and results considered in the medical decision making process. - CT lumbar CT Interpretation: No Acute Changes - IMPRESSION: 1. Unchanged L1 vertebral body fracture. Unchanged minimal bulging/retropulsion of the middle column into the spinal canal. 2. 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 CT Interpretation Completed By: Radiologist Back Pain Course/Dx - Course Course Of Treatment: 85F presents with back pain for a week. States that fell twice last week and that had xray that were normal. states the pain has been increasing this week. She is taking hydrocodone with is not working. denies any pain into legs or numbness or tingling. on exam pain is not midline and neg SLR. discussed with patient and due to worsening back pain and xray only done a week will get CT. CT unchanged from previous two months ago. discussed options with patient and patient does not want muscle relaxer. states would like to try different narcoctic. dicussed that could try plain oxycodone and patient can take it every 6 and alternate tyenlol in between every 6 hours. gave prednisone dose pack and lidocaine patches to try. patient did not provide urine sample before d/c to check for UTI. told patient to follow up with primary to discuss pain managment options. patient understands and agrees with plan - Diagnoses Differential Diagnosis/HQI/PQRI: Positive: Fracture, Strain, Sprain Provider Diagnoses: Back pain Discharge - Discharge Plan Condition: Good Disposition: HOME Prescriptions: Lidocaine PATCH 5%* [Lidoderm 5% Patch*] 1 patch TRANSDERM DAILY #6 patch Methylprednisolone [Medrol Dosepak 4 MG*] 4 mg PO .SEE ABIGAIL INSTRUCTION #1 packet oxyCODONE TAB* [Roxycodone TAB 5 mg*] 5 mg PO Q4H PRN #12 tab MDD 6 PRN Reason: Pain Patient Education Materials: Back Pain (ED) Referrals: Cassie Sim MD [Primary Care Provider] - Additional Instructions: Follow up with primary within 3 days Follow directions on package for Medrol pack Apply lidocaine patches to area for up to 12 hours in one 24 hour period Use Tylenol for pain every 6 hours, use narcotic every 4-6 hours ice/heat area, move as much as possible Return to ED if unable to ambulate or develop any new or worsening symptoms
--- NOTE | 2016-05-07 16:17 | RAD ---
Indication: Fall, worsening back pain. Comparison: April 28, 2016 radiographs. Technique: Noncontrast CT lumbar sacral spine. Multiplanar reformation. Report: 3.2 cm simple exophytic cortical cyst lower pole LEFT kidney. Severe 2 column compression fracture of L1 with up to 3 mm retropulsion into the spinal canal is unchanged compared with the March 14, 2016 CT. No additional vertebral body or posterior element fractures evident at any level. Minimal grade 1 degenerative L3-L4 anterolisthesis. Mild diffuse degenerative spondylosis. T11 -12: Annular disc bulge. Negative for significant acquired spinal stenosis. T12-L1: Negative for significant acquired spinal stenosis. L1-L2: Negative for significant acquired spinal stenosis. L2-L3: Annular disc bulge. 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 L3-L4: Uncovering of the intervertebral disc and mild disc bulge. Degenerative spondylosis and posterior osteoarthritis results in mild LEFT foraminal stenosis. L4-L5: Unremarkable for age. L5-S1: Unremarkable for age. IMPRESSION: 1. Unchanged L1 vertebral body fracture. Unchanged minimal bulging/retropulsion of the middle column into the spinal canal. 2. 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
[2016-05-07] MEDS ORDERED: Lidocaine PATCH 5%* 1 PATCH TRANSDERM ONE (16:36)
== END 2016-05-07 16:58 | disposition home or self-care (01) ==
LOC: ED 14:04
DX: M54.9 Dorsalgia, unspecified (principal); Z87.891 Personal history of nicotine dependence; W19.XXXA Unspecified fall, initial encounter; Y92.9 Unspecified place or not applicable; Z88.2 Allergy status to sulfonamides; Z79.82 Long term (current) use of aspirin; K21.9 Gastro-esophageal reflux disease without esophagitis; K57.90 Diverticulosis of intestine, part unspecified, without perforation or abscess without bleeding; Z87.11 Personal history of peptic ulcer disease
CPT/HCPCS: 72131; 99282; A9270-GY

== ENCOUNTER 2016-05-08 18:50 | Emergency (ER) | payer MEDICARE, OTHER ==
--- NOTE | 2016-05-08 20:21 | RAD ---
Indication: Constipation. Flat plate of the abdomen demonstrates fecal stasis especially in the right colon. Stool is present throughout the colon however. No dilated loops of bowel are noted. IMPRESSION: Fecal stasis especially in the right colon and rectum.
[2016-05-08] MEDS ORDERED: Magnesium CITRATE* 300 ML BTL PO ONE (22:25)
--- NOTE | 2016-05-08 22:27 | ED ---
I, Oh,Zina, scribed for Emile Santana MD on 05/08/16 at 1935 . GI/ HPI - HPI Summary HPI Summary: This 85 y/o female presents to ED for persistent constipation with last BM a week ago. Pt also reports back pain for which pt was previously seen in [facility] [place] and CT L-spine was indicated negative. Metamucil, Senna, and suppository failed to alleviate constipation, and pt decided to visit ED today when she became concerned. Per yesterday's EMR, she has been taking hydrocodone q4h in order to control her back pain. Primary care involves Dr. Sim, who was last seen by pt a week ago. PMHx includes polycythema vera, afib with cardioversion x3, and hypothyroidism. - History of Current Complaint Chief Complaint: EDBackInjuryPain Time Seen by Provider: 05/08/16 19:23 Stated Complaint: BACK PAIN Hx Obtained From: Patient, Medical Records Onset/Duration: Started Weeks Ago, Atraumatic, Still Present Timing: Constant Pain Intensity: 9 Location of Pain: None Associated Signs and Symptoms: Positive: Back Pain, Constipation Aggravating Factor(s): Nothing Alleviating Factor(s): Nothing - Additional Pertinent History Primary Care Physician: [id number] - Allergy/Home Medications Allergies/Adverse Reactions: Allergies Allergy/AdvReac Type Severity Reaction Status Date / Time Bee Venom Allergy Unknown Verified 05/08/16 19:03 Reaction Details Sulfa Antibiotics Allergy Rash Verified 05/08/16 19:03 IVP DYE Allergy Hives Uncoded 05/08/16 19:03 THYLIUM Allergy Hives Uncoded 05/08/16 19:03 Home Medications: Home Medications Dofetilide CAP* [Tikosyn CAP*] 125 mcg PO BID 05/08/16 [History Confirmed ] PMH/Surg Hx/FS Hx/Imm Hx Endocrine/Hematology History: Denies: Hx Blood Disorders, Hx Blood Transfusions, Hx Bone Marrow Disease, Hx Diabetes, Hx Systemic Lupus Erythematosus, Hx Sickle Cell Disease, Hx Thyroid Disease, Hx Anemia, Hx Unexplained Bleeding, Other Endocrine/ Hematological Disorders Cardiovascular History: Reports: Hx Hypercholesterolemia, Hx Pacemaker/ICD - 9/ 14/15, Other Cardiovascular Problems/Disorders - Afib Denies: Hx Aneurysm, Hx Angina, Hx Angioplasty, Hx Auto Implanted Cardiovert Defib, Hx Cardiac Arrest, Hx Cardiomegaly, Hx Congenital Heart Disease, Hx Congestive Heart Failure, Hx Coronary Artery Disease, Hx Deep Vein Thrombosis, Hx Embolism, Hx Hypotension, Hx Hypertension, Hx Peripheral Vascular Disease, Hx Rheumatic Fever, Hx Syncope, Hx Valvular Heart Disease Respiratory History: Denies: Hx Asthma, Hx Chronic Bronchitis, Hx Chronic Obstructive Pulmonary Disease (COPD), Hx Cystic Fibrosis, Hx Lung Cancer, Hx Pleural Effusion, Hx Pneumonia, Hx Pulmonary Edema, Hx Pulmonary Embolism, Hx Seasonal Allergies, Hx Sleep Apnea, Other Respiratory Problems/Disorders GI History: Reports: Hx Diverticulosis, Hx Irritable Bowel, Other GI Disorders - duodenal ulcers Denies: Hx Cirrhosis, Hx Crohn's Disease, Hx Gall Bladder Disease, Hx Gastroesophageal Reflux Disease, Hx Gastrointestinal Bleed, Hx Jaundice, Hx Obstructive Bowel, Hx Ileostomy, Hx Pyloric Stenosis, Hx Ulcer History: Denies: Hx Acute Renal Failure, Hx Benign Prostatic Hyperplasia, Hx Chronic Renal Failure, Hx Dialysis, Hx Kidney Infection, Hx Kidney Stones, Other Problems/Disorders Musculoskeletal History: Reports: Hx Arthritis, Hx Back Problems, Hx Orthopedic Injury - compression fx lower back, Hx Osteoporosis Denies: Hx Bursitis, Hx Congenital Bone Abnormalities, Hx Fibromyalgia, Hx Gout, Hx Scoliosis, Hx Tendonitis, Other Musculoskeletal History Sensory History: Reports: Hx Cataracts, Hx Contacts or Glasses, Hx Hearing Aid Denies: Hx Eye Injury, Hx Eye Prosthesis, Hx Glaucoma, Hx Legally Blind, Hx Macular Degeneration, Hx Vision Problem, Hx Deafness, Hx Hearing Problem, Other Sensory Impairments Opthamlomology History: Reports: Hx Cataracts, Hx Contacts or Glasses Denies: Hx Eye Injury, Hx Eye Prosthesis, Hx Glaucoma, Hx Legally Blind, Hx Macular Degeneration, Hx Vision Problem, Other Sensory Impairments Neurological History: Reports: Hx Migraine Denies: Hx Dementia, Hx Developmental Delay, Hx Headaches, Hx Nerve Disease, Hx Seizures, Hx Spinal Cord Injury, Hx Transient Ischemic Attacks (TIA), Other Neuro Impairments/Disorders Psychiatric History: Denies: Hx Anxiety, Hx Attention Deficit Hyperactivity Disorder, Hx Eating Disorder, Hx Depression, Hx Panic Disorder, Hx Post Traumatic Stress Disorder, Hx Inpatient Treatment, Hx Community Mental Health Tx, Hx Schizophrenia, Hx Bipolar Disorder, Hx Suicide Attempt, Hx of Violent Episodes Against Others, Hx Substance Abuse, Other Psychiatric Issues/Disorders - Cancer History Hx Chemotherapy: No Hx Radiation Therapy: No Hx Palliative Cancer Treatment: No - Surgical History Surgery Procedure, Year, and Place: HYSTERECTOMY 1987. cataract removal Hx Anesthesia Reactions: No - Immunization History Date of Tetanus Vaccine: PT STATES UNSURE Date of Influenza Vaccine: NONE Infectious Disease History: No Infectious Disease History: Reports: Hx Shingles Denies: Hx Clostridium Difficile, Hx Hepatitis, Hx Human Immunodeficiency Virus (HIV), Hx of Known/Suspected MRSA, Hx Tuberculosis, Hx Known/Suspected VRE , Hx Known/Suspected VRSA, History Other Infectious Disease, Traveled Outside the [place] in Last 30 Days - Family History Known Family History: Positive: Cardiac Disease, Other - Positive Breast CA - Social History Alcohol Use: None Hx Substance Use: No Substance Use Type: Reports: None, Other Substance Use Comment - Amount & Last Used: prescription narcotics Hx Tobacco Use: Yes Smoking Status (MU): Former Smoker Have You Smoked in the Last Year: No Review of Systems Negative: Fever Positive: Other - constipation Positive: Other - back pain Negative: Anxious, Depressed All Other Systems Reviewed And Are Negative: Yes Physical Exam Triage Information Reviewed: Yes Vital Signs On Initial Exam: Initial Vitals Temp Pulse Resp BP Pulse Ox 97.7 F 66 16 101/51 100 05/08/16 19:03 05/08/16 19:03 05/08/16 19:03 05/08/16 19:03 05/08/16 19:03 Vital Signs Reviewed: Yes Appearance: Positive: Well-Appearing, No Pain Distress Skin: Positive: Warm Head/Face: Positive: Normal Head/Face Inspection Eyes: Positive: MELBA ENT: Positive: Hearing grossly normal Neck: Positive: Supple Respiratory/Lung Sounds: Positive: Clear to Auscultation, Breath Sounds Present Cardiovascular: Positive: RRR Abdomen Description: Positive: Nontender, Soft. Negative: Distended, Guarding Bowel Sounds: Positive: Present Musculoskeletal: Positive: Strength/ROM Intact Neurological: Positive: Alert, Oriented to Person Place, Time Psychiatric: Positive: Affect/Mood Appropriate - [place] Coma Scale Coma Scale Total: 15 Diagnostics - Vital Signs Vital Signs Temp Pulse Resp BP Pulse Ox 05/08/16 19:03 97.7 F 66 16 101/51 100 - Laboratory Lab Statement: Any lab studies that have been ordered have been reviewed, and results considered in the medical decision making process. - Radiology Abd Xray Interpretation: Positive (See Comments) - fecal stasis especially in right colon and rectum. Radiology Interpretation Completed By: Radiologist Re-Evaluation - Re-Evaluation First Eval Change: Improved - good results with enema GIGU Course/Dx - Diagnoses Provider Diagnoses: Constipation Discharge - Discharge Plan Condition: Improved Disposition: HOME Patient Education Materials: Constipation (ED) Referrals: Cassie Sim MD [Primary Care Provider] - 2 Days The documentation as recorded by the Jim goodman Soohyun accurately reflects the service I personally performed and the decisions made by me, Emile Santana MD.
[2016-05-08 23:45] VITALS: BP 130/84
== END 2016-05-08 23:44 | disposition home or self-care (01) ==
LOC: ED 18:50
DX: K59.00 Constipation, unspecified (principal); M54.9 Dorsalgia, unspecified; Z87.891 Personal history of nicotine dependence
CPT/HCPCS: 74000; 99283; A9270-GY

== ENCOUNTER 2016-06-29 06:45 | Observation (INO) | payer MEDICARE, OTHER ==
[~2016-06-29 06:45] MED LIST: Buffered Lidocaine 1% SYR 3ML* 3 ML/SYR SYRINGE INTRADERM ONE; Famotidine IV* 10 MG/ML 2 ML (20 mg) IV ONE
[2016-06-29] MEDS ORDERED: Famotidine IV* 10 MG/ML 2 ML (20 mg) ONE (06:46)
[2016-06-29] MEDS ORDERED: ceFAZolin 2 GM PREMIX(*) 2 GM/50 ML BAG IVPB ONE (06:46)
[2016-06-29] MEDS ORDERED: Metoprolol Tartrate TAB* 25 MG ONE (07:11)
[2016-06-29] MEDS ORDERED: Lidocain 1% EPI 1:100,000 * 30 ML MDV ONE (07:24)
[2016-06-29] MEDS ORDERED: Midazolam* 1 MG/ML 5 ML VIAL (5 MG) ONE (07:34)
[2016-06-29] MEDS ORDERED: fentaNYL* 50 MCG/ML 2 ML VIAL (100 MCG VIAL) ONE (07:34)
[2016-06-29] MEDS ORDERED: Ondansetron INJ* 2 MG/ML VIAL ONE (07:37)
[2016-06-29] MEDS ORDERED: DiMENhydriNATE IV* 50 MG/ML VIAL ONE (07:37)
[2016-06-29] MEDS ORDERED: Dexamethasone IV* 4 MG/ML 1 ML (4 MG) ONE (07:37)
[2016-06-29] MEDS ORDERED: Lidocaine 2% PF * 5 ML VIAL ONE (07:37)
[2016-06-29] MEDS ORDERED: Propofol* 10 MG/ML 20 ML BTL IV PUSH ONE ×2 (07:37→10:32)
[2016-06-29] MEDS ORDERED: KETAMINE HCL* 50 MG/ML 10 ML VIAL ONE (07:49)
[2016-06-29] MEDS ORDERED: oxyCODONE TAB* 5 MG TAB PO PRN ×2 (08:57→09:24)
[2016-06-29] MEDS ORDERED: clonazePAM TAB(*) 0.5 MG PO PRN (08:57)
[2016-06-29] MEDS ORDERED: Metoprolol Succinate XL TAB* 50 MG PO SCH ×2 (09:00→16:37)
[2016-06-29] MEDS ORDERED: Acetaminophen TAB* 325 MG PO PRN (09:24)
[2016-06-29] MEDS ORDERED: DiMENhydriNATE IV* 50 MG/ML VIAL IV PUSH PRN (09:24)
[2016-06-29] MEDS ORDERED: HYDROmorphone* 1 MG/ML 1 ML SYR ONE (09:41)
[2016-06-29] MEDS ORDERED: Acetaminophen IV 1GM/100ML * 100 ML ONE (09:41)
[2016-06-29] MEDS: HYDROmorphone* 1 MG/ML 1 ML SYR IV PRN ×2 (09:43→10:18)
--- NOTE | 2016-06-29 09:51 | RAD ---
INDICATION: Lumbar L1 vertebroplasty COMPARISONS: CT dated May 07, 2016 TECHNIQUE: Fluoroscopy was provided for a vertebroplasty. Total fluoroscopy time is: 101.2 seconds FINDINGS: Spot images demonstrate vertebroplasty needles within the L1 vertebral body, counting from the last rib-bearing vertebral body. There is no posterior epidural extension of methylmethacrylate. IMPRESSION: FLUOROSCOPY WAS PROVIDED FOR A VERTEBROPLASTY CPT II Codes: 6045F
[2016-06-29] MEDS ORDERED: Midazolam* 1 MG/ML 2 ML VIAL (2 MG) ONE (09:55)
[2016-06-29] MEDS ORDERED: ACETAMINOPHEN IVPB ONE (10:51)
[2016-06-29] MEDS: Dofetilide CAP* 250 MCG PO SCH ×2 (10:53→21:27)
[2016-06-29] MEDS: Aspirin EC Low Dose* 81 MG TAB.EC PO SCH (13:55)
[2016-06-29] MEDS: Citalopram TAB* 10 MG PO SCH ×2 (13:56→21:24)
[2016-06-29] MEDS: HydroxyUREA CAP* 500 MG CAP PO SCH (13:56)
[2016-06-29] MEDS: Omeprazole CAP* 20 MG PO SCH (14:04)
[2016-06-29] MEDS: Acetaminophen TAB* 325 MG PO PRN ×2 (16:27→23:46)
[2016-06-29] MEDS ORDERED: Levothyroxine TAB* 100 MCG TAB PO SCH (18:00)
[2016-06-29] MEDS ORDERED: Levothyroxine TAB* 125 MCG TAB PO SCH (18:15)
--- NOTE | 2016-06-30 07:33 | PN ---
Progress Note - Progress Note SOAP: Subjective: []POD#1 Doing well Pre op back pain relieved Objective: []Neuro intact Dressings dry Assessment: [] Satis post op course Plan: []D/C today D/C instructions given
[2016-06-30 08:37] VITALS: BP 109/62
[2016-06-30] MEDS: Acetaminophen TAB* 325 MG PO PRN (09:15)
[2016-06-30] MEDS: Dofetilide CAP* 250 MCG PO SCH (09:15)
[2016-06-30] MEDS: HydroxyUREA CAP* 500 MG CAP PO SCH (09:15)
[2016-06-30] MEDS: Omeprazole CAP* 20 MG PO SCH (09:15)
[2016-06-30] MEDS: Aspirin EC Low Dose* 81 MG TAB.EC PO SCH (09:15)
[2016-06-30] MEDS: Citalopram TAB* 10 MG PO SCH (09:16)
--- NOTE | 2016-06-30 21:22 | OP ---
OPERATIVE REPORT: DATE OF OPERATION: 06/29/16 DATE OF : 32 PRIMARY SURGEON: Harvinder Brown MD ANESTHESIA: General. PRE-OP DIAGNOSIS: L1 compression fracture. POST-OP DIAGNOSIS: L1 compression fracture. OPERATIVE PROCEDURE: L1 vertebroplasty. DESCRIPTION OF PROCEDURE: After satisfactory general anesthesia was obtained, the patient was place d on a flat top table with the chest supported on chest rolls. The thoracolumbar region was then cli pped, prepped and draped in a sterile manner for vertebroplasty and AP and lateral C-arms were broug ht into the field and draped sterilely. Utilizing C-arm guidance, a vertebroplasty trocar was intro duced initially on the right side through the L1 pedicle into the L1 vertebral body. This was confir med with AP and lateral fluoroscopic guidance. Kyphon cement was then injected into the body with a total of 3 fillers used on the right side. There was slight extravasation of the cement superiorly into the disk space. There did not appear to be very good fill on the AP on the left side and for t hat reason, a trocar was passed through the left pedicle into the left side of the vertebral body. An additional 2 fillers were used on that side and had same degree of good bilateral filling of ceme nt. The cement was tamped down, after which the trocar was removed. Bandages were applied to the t rocar carson. The estimated blood loss was minimal and the final sponge, padding, and needle counts were correct. The patient was taken to the recovery room, extubated and in stable condition. [id number]/[facility] #: [id number]
--- NOTE | 2016-07-07 04:08 | DS ---
DISCHARGE SUMMARY: DATE OF ADMISSION: 06/29/16 DATE OF DISCHARGE: 06/30/16 ATTENDING PROVIDER: Dr. Brown (dictated by NURIS Khalil) DISCHARGE DIAGNOSES: 1. Compression fracture of L1 vertebrae. 2. Atrial fibrillation. 3. Hypothyroidism. 4. Polycythemia vera. 5. Pacemaker. SPECIAL PROCEDURES: L1 vertebroplasty. HOSPITAL COURSE: This 85-year-old female was seen in the office with low back pain consistent with L1 compression fracture. She had worsened with conservative treatment. Low back pain resulted in several recent falls. She was therefore admitted at this time for elective surgical treatment. On the day of admission, she was taken to surgery where under general anesthesia, an L1 vertebroplasty operation was carried out. Postoperatively, she was doing well and pain was well controlled with oral pain medications. She was ambulating independently. She was eating, drinking, and voiding without difficulty. On the first postoperative day, she reported resolution of the low back pain. She was discharged home to the care of her family. DISCHARGE INSTRUCTIONS: Discharge instructions including wound care and activity level were discussed with the patient and provided. She will be seen in the office in approximately 7 to 10 days for followup. DISCHARGE MEDICATIONS: None. NURIS KHALIL [id number]/[facility] #: [id number] MTDD
== END 2016-06-30 11:05 | disposition home or self-care (01) ==
LOC: OR 06:45 → SSU 11:51
PROVIDERS: ADMIT Neurological Surgery; ATTEND Neurological Surgery
PROC: 0QU03JZ Supplement Lumbar Vertebra with Synthetic Substitute, Percutaneous Approach (ICD-10-PCS; principal; 2016-06-29 07:45)
DX: M48.56XA Collapsed vertebra, not elsewhere classified, lumbar region, initial encounter for fracture (principal); I48.91 Unspecified atrial fibrillation; E03.9 Hypothyroidism, unspecified; Z95.0 Presence of cardiac pacemaker
CPT/HCPCS: 72100; 76001; A9270-GY; G0378; J0690; J1100; J1170; J1240; J2250; J2405; J2704; J3010

== ENCOUNTER → 2016-08-08 21:55 | Emergency (ER) | payer MEDICARE, OTHER ==
[~2016-08-08 21:55] MED LIST changes: -Buffered Lidocaine 1% SYR 3ML* 3 ML/SYR SYRINGE INTRADERM ONE; -Famotidine IV* 10 MG/ML 2 ML (20 mg) IV ONE; +NS 0.9% 1000 ML* 1,000 ML IV SCH; +Ondansetron INJ* 2 MG/ML VIAL IV ONE; +Ondansetron INJ* 2 MG/ML VIAL ONE
[2016-08-08 23:41] LABS: Hematocrit 41 % (35-47); Hemoglobin 12.8 g/dl (12.0-16.0); Mean Corpuscular HGB Conc 31 g/dl (31-36); Mean Corpuscular Hemoglobin 28 pg (27-31); Mean Corpuscular Volume 90 fL (80-97); Mean Platelet Volume 8 um3 (7.4-10.4); Red Blood Count 4.56 10^6/ul (4.0-5.4); Red Cell Distribution Width 20 % (10.5-15); White Blood Count 15.2 10^3/ul (3.5-10.8)
[2016-08-09 00:01] LABS: Albumin 3.9 g/dL (3.2-5.2); BUN/Creatinine Ratio 41.5 (8-20); C Reactive Protein 2.62 mg/L (< 5.00); EGFR African American 111.7 (>60); EGFR Non-African American 86.8 (>60); Globulin 3.1 g/dL (2-4); Magnesium 1.9 mg/dL (1.9-2.7); Potassium 4.3 mmol/L (3.5-5.0); Total Bilirubin 0.5 mg/dL (0.2-1.0)
--- NOTE | 2016-08-09 06:59 | ED ---
aniceto Nuñez Timothy, scribed for Cornelio Blanco MD on 08/08/16 at 2344 . Head Injury - HPI Summary HPI Summary: Herbie Gallardo is an 85 yo female presenting to [facility] with a head laceration S/P a fall from standing position. Her two daughters are present in room. She states she got into the shower, and then does not remember exactly what happened, but she remembers falling and is not sure what she hit her head on. She states she hit her chest first, and notes pain in her chest. She states she was initially SOB, but this has resolved. She denies abd pain or any lower extremity pain. Her MHx includes hypothyroidism, Afib, CAD, pacemaker, HLD, HTN, migraine, L1 vertebroplasty 06/29/16, diverticulosis, IBS, GERD, duodenal ulcers, hysterectomy , arthritis, osteoperosis, compression fractures in her back, depression, anxiety, and tobacco use. - History Of Current Complaint Chief Complaint: EDHeadInjury Stated Complaint: HEAD LAC Time Seen by Provider: 08/08/16 23:53 Hx Obtained From: Patient Mechanism Of Injury: Fall From A Standing Position Onset/Duration: Started Hours Ago, Still Present Onset of Pain: Immediate Severity Currently: Moderate Severity Initially: Moderate Pain Scale Used: 0-10 Numeric Location of Head Injury: Temporal Associated Signs And Symptoms: Headache, Other: - CP - Allergies/Home Medications Allergies/Adverse Reactions: Allergies Allergy/AdvReac Type Severity Reaction Status Date / Time Bee Venom Allergy Anaphylatic Verified 06/29/16 06:54 Shock Sulfa Antibiotics Allergy Rash Verified 06/29/16 06:54 IODINE/IVP DYE Allergy Hives Uncoded 06/29/16 06:54 THALLIUM Allergy Hives Uncoded 06/29/16 06:54 PMH/Surg Hx/FS Hx/Imm Hx Endocrine/Hematology History: Reports: Hx Thyroid Disease - hypothyroid, controlled with medication Denies: Hx Blood Disorders, Hx Blood Transfusions, Hx Bone Marrow Disease, Hx Diabetes, Hx Systemic Lupus Erythematosus, Hx Sickle Cell Disease, Hx Anemia , Hx Unexplained Bleeding, Other Endocrine/Hematological Disorders Cardiovascular History: Reports: Hx Hypercholesterolemia, Hx Hypertension - controlled with medication, Hx Pacemaker/ICD - 9/14/15, Other Cardiovascular Problems/Disorders - hx A-fib Denies: Hx Aneurysm, Hx Angina, Hx Angioplasty, Hx Auto Implanted Cardiovert Defib, Hx Cardiac Arrest, Hx Cardiomegaly, Hx Congenital Heart Disease, Hx Congestive Heart Failure, Hx Coronary Artery Disease, Hx Deep Vein Thrombosis, Hx Embolism, Hx Hypotension, Hx Peripheral Vascular Disease, Hx Rheumatic Fever , Hx Syncope, Hx Valvular Heart Disease Respiratory History: Denies: Hx Asthma, Hx Chronic Bronchitis, Hx Chronic Obstructive Pulmonary Disease (COPD), Hx Cystic Fibrosis, Hx Lung Cancer, Hx Pleural Effusion, Hx Pneumonia, Hx Pulmonary Edema, Hx Pulmonary Embolism, Hx Seasonal Allergies, Hx Sleep Apnea, Other Respiratory Problems/Disorders GI History: Reports: Hx Diverticulosis, Hx Irritable Bowel - controlled with diet and medication, Other GI Disorders - 4 duodenal ulcers, controlled with medication Denies: Hx Cirrhosis, Hx Crohn's Disease, Hx Gall Bladder Disease, Hx Gastroesophageal Reflux Disease, Hx Gastrointestinal Bleed, Hx Jaundice, Hx Obstructive Bowel, Hx Ileostomy, Hx Pyloric Stenosis, Hx Ulcer History: Denies: Hx Acute Renal Failure, Hx Benign Prostatic Hyperplasia, Hx Chronic Renal Failure, Hx Dialysis, Hx Kidney Infection, Hx Kidney Stones, Other Problems/Disorders Musculoskeletal History: Reports: Hx Arthritis, Hx Back Problems, Hx Orthopedic Injury - compression fx lower back, Hx Osteoporosis Denies: Hx Bursitis, Hx Congenital Bone Abnormalities, Hx Fibromyalgia, Hx Gout, Hx Scoliosis, Hx Tendonitis, Other Musculoskeletal History Sensory History: Reports: Hx Cataracts - bi-lat surgery approx 5 yrs ago, Hx Contacts or Glasses - reading glasses, Hx Hearing Aid Denies: Hx Eye Injury, Hx Eye Prosthesis, Hx Glaucoma, Hx Legally Blind, Hx Macular Degeneration, Hx Vision Problem, Hx Deafness, Hx Hearing Problem, Other Sensory Impairments Opthamlomology History: Reports: Hx Cataracts - bi-lat surgery approx 5 yrs ago , Hx Contacts or Glasses - reading glasses Denies: Hx Eye Injury, Hx Eye Prosthesis, Hx Glaucoma, Hx Legally Blind, Hx Macular Degeneration, Hx Vision Problem, Other Sensory Impairments Neurological History: Reports: Hx Headaches, Hx Migraine - last migraine, over 5 yrs ago Denies: Hx Dementia, Hx Developmental Delay, Hx Nerve Disease, Hx Seizures, Hx Spinal Cord Injury, Hx Transient Ischemic Attacks (TIA), Other Neuro Impairments/Disorders Psychiatric History: Reports: Hx Anxiety - controlled with medication, Hx Depression - controlled with medication Denies: Hx Attention Deficit Hyperactivity Disorder, Hx Eating Disorder, Hx Panic Disorder, Hx Post Traumatic Stress Disorder, Hx Inpatient Treatment, Hx [facility] Mental Health Tx, Hx Schizophrenia, Hx Bipolar Disorder, Hx Suicide Attempt, Hx of Violent Episodes Against Others, Hx Substance Abuse, Other Psychiatric Issues/Disorders - Cancer History Hx Chemotherapy: No Hx Radiation Therapy: No Hx Palliative Cancer Treatment: No - Surgical History Surgery Procedure, Year, and Place: HYSTERECTOMY 1987. cataract removal bi-lat 2011? Hx Anesthesia Reactions: No - Immunization History Date of Tetanus Vaccine: PT STATES UNSURE Date of Influenza Vaccine: NONE Infectious Disease History: Reports: Hx Shingles Denies: Hx Clostridium Difficile, Hx Hepatitis, Hx Human Immunodeficiency Virus (HIV), Hx of Known/Suspected MRSA, Hx Tuberculosis, Hx Known/Suspected VRE , Hx Known/Suspected VRSA, History Other Infectious Disease, Traveled Outside the [place] in Last 30 Days - Family History Known Family History: Positive: Cardiac Disease, Diabetes, Other - Positive Breast CA Family History: FHx of Breast CA - Social History Alcohol Use: None Hx Substance Use: No Substance Use Type: Reports: Prescribed, Other Substance Use Comment - Amount & Last Used: prescription narcotics Hx Tobacco Use: Yes Smoking Status (MU): Former Smoker Amount Used/How Often: smoked 1 ppd for approx 12 years Have You Smoked in the Last Year: No Review of Systems Constitutional: Negative Eyes: Negative ENT: Negative Positive: Chest Pain - lower sternal Positive: Shortness Of Breath - resolved Gastrointestinal: Negative Genitourinary: Negative Musculoskeletal: Negative Positive: Other - scalp laceration Positive: Headache Psychological: Normal All Other Systems Reviewed And Are Negative: Yes Physical Exam Triage Information Reviewed: Yes Vital Signs On Initial Exam: Initial Vital Signs BP 108/62 08/08/16 22:03 Vital Signs Reviewed: Yes Appearance: Positive: Well-Appearing, No Pain Distress, Well-Nourished Skin: Positive: Warm, Skin Color Reflects Adequate Perfusion, Dry, Other - Left adventist cresent shaped 8mm scalp laceration. Bleeding controlled. Head/Face: Positive: Normal Head/Face Inspection Eyes: Positive: EOMI, MELBA ENT: Positive: Normal ENT inspection Neck: Positive: Supple, Nontender Respiratory/Lung Sounds: Positive: Clear to Auscultation, Breath Sounds Present Cardiovascular: Positive: RRR Abdomen Description: Positive: Nontender, Soft Bowel Sounds: Positive: Present Musculoskeletal: Positive: Strength/ROM Intact, Other - tenderness noted at the xiphoid process Neurological: Positive: Normal, Sensory/Motor Intact, Alert, Oriented to Person Place, Time Psychiatric: Positive: Affect/Mood Appropriate Procedures - Laceration/Wound Repair 1 Location: head - Left temporal Description: Irregular Anesthesia: Local, 1.0%, Lido Length, Depth and Shape: Left temporal scalp crescent shaped 8mm sc Betadine Prep?: No - sirena clens Laceration/Wound Explored: clean, no foreign body removed Closure: Single Layer, [place] #__ - 6 Debridement: minimal Suture Type: Prolene - #5, 4-0 prolene Layer Closure?: Yes Sterile Dressing Applied?: Yes Diagnostics - Vital Signs Vital Signs Pulse Resp BP Pulse Ox 08/09/16 01:16 24 105/87 08/09/16 01:01 15 98/80 08/09/16 01:00 20 08/09/16 00:45 17 101/84 08/09/16 00:30 77 16 116/87 91 08/09/16 00:16 73 20 109/89 94 08/09/16 00:05 85 21 93 08/09/16 00:04 106/53 08/08/16 23:28 84 22 95 08/08/16 23:16 83 17 154/85 93 08/08/16 23:00 88 20 96 08/08/16 22:17 102/69 08/08/16 22:15 91 27 89/62 96 08/08/16 22:04 89 95 08/08/16 22:03 108/62 - Laboratory Lab Results: Lab Results 08/08/16 08/08/16 08/08/16 Range/Units 22:40 22:40 22:40 WBC 15.2 H (3.5-10.8) 10^3/ul RBC 4.56 (4.0-5.4) 10^6/ul Hgb 12.8 (12.0-16.0) g/dl Hct 41 (35-47) % MCV 90 (80-97) fL MCH 28 (27-31) pg MCHC 31 (31-36) g/dl RDW 20 H (10.5-15) % Plt Count 211 (150-450) 10^3/ul MPV 8 (7.4-10.4) um3 Neut % (Auto) 90.8 H (38-83) % Lymph % (Auto) 3.2 L (25-47) % Gilmer % (Auto) 5.7 (1-9) % Eos % (Auto) 0.1 (0-6) % Baso % (Auto) 0.2 (0-2) % Absolute Neuts (auto) 13.8 H (1.5-7.7) 10^3/ul Absolute Lymphs (auto) 0.5 L (1.0-4.8) 10^3/ul Absolute Monos (auto) 0.9 H (0-0.8) 10^3/ul Absolute Eos (auto) 0 (0-0.6) 10^3/ul Absolute Basos (auto) 0 (0-0.2) 10^3/ul Absolute Nucleated RBC 0.01 10^3/ul Nucleated RBC % 0 INR (Anticoag Therapy) 1.21 H (0.89-1.11) APTT 44.3 H (26.0-36.3) seconds Sodium 130 L (133-145) mmol/L Potassium 4.3 (3.5-5.0) mmol/L Chloride 100 L (101-111) mmol/L Carbon Dioxide 24 (22-32) mmol/L Anion Gap 6 (2-11) mmol/L BUN 27 H (6-24) mg/dL Creatinine 0.65 (0.51-0.95) mg/dL Est GFR ( Amer) 111.7 (>60) Est GFR (Non-Af Amer) 86.8 (>60) BUN/Creatinine Ratio 41.5 H (8-20) Glucose 157 H (70-100) mg/dL Lactic Acid (0.5-2.0) mmol/L Calcium 9.0 (8.6-10.3) mg/dL Magnesium 1.9 (1.9-2.7) mg/dL Total Bilirubin 0.50 (0.2-1.0) mg/dL AST 15 (13-39) U/L ALT 9 (7-52) U/L Alkaline Phosphatase 47 (34-104) U/L Troponin I 0.00 (<0.04) ng/mL C-Reactive Protein 2.62 (< 5.00) mg/L B-Natriuretic Peptide ( - 100) pg/mL Total Protein 7.0 (6.4-8.9) g/dL Albumin 3.9 (3.2-5.2) g/dL Globulin 3.1 (2-4) g/dL Albumin/Globulin Ratio 1.3 (1-3) 08/08/16 08/08/16 Range/Units 22:40 22:40 WBC (3.5-10.8) 10^3/ul RBC (4.0-5.4) 10^6/ul Hgb (12.0-16.0) g/dl Hct (35-47) % MCV (80-97) fL MCH (27-31) pg MCHC (31-36) g/dl RDW (10.5-15) % Plt Count (150-450) 10^3/ul MPV (7.4-10.4) um3 Neut % (Auto) (38-83) % Lymph % (Auto) (25-47) % Gilmer % (Auto) (1-9) % Eos % (Auto) (0-6) % Baso % (Auto) (0-2) % Absolute Neuts (auto) (1.5-7.7) 10^3/ul Absolute Lymphs (auto) (1.0-4.8) 10^3/ul Absolute Monos (auto) (0-0.8) 10^3/ul Absolute Eos (auto) (0-0.6) 10^3/ul Absolute Basos (auto) (0-0.2) 10^3/ul Absolute Nucleated RBC 10^3/ul Nucleated RBC % INR (Anticoag Therapy) (0.89-1.11) APTT (26.0-36.3) seconds Sodium (133-145) mmol/L Potassium (3.5-5.0) mmol/L Chloride (101-111) mmol/L Carbon Dioxide (22-32) mmol/L Anion Gap (2-11) mmol/L BUN (6-24) mg/dL Creatinine (0.51-0.95) mg/dL Est GFR ( Amer) (>60) Est GFR (Non-Af Amer) (>60) BUN/Creatinine Ratio (8-20) Glucose (70-100) mg/dL Lactic Acid 1.6 (0.5-2.0) mmol/L Calcium (8.6-10.3) mg/dL Magnesium (1.9-2.7) mg/dL Total Bilirubin (0.2-1.0) mg/dL AST (13-39) U/L ALT (7-52) U/L Alkaline Phosphatase (34-104) U/L Troponin I (<0.04) ng/mL C-Reactive Protein (< 5.00) mg/L B-Natriuretic Peptide 122 H ( - 100) pg/mL Total Protein (6.4-8.9) g/dL Albumin (3.2-5.2) g/dL Globulin (2-4) g/dL Albumin/Globulin Ratio (1-3) Result Diagrams: 08/08/16 22:40 08/08/16 22:40 Lab Statement: Any lab studies that have been ordered have been reviewed, and results considered in the medical decision making process. - CT Brain CT Interpretation: No Acute Changes - No definite, acute hemorrhage, mass, or acute territorial infarct. Exam limited by artifact. Atrophy and chronic small vessel ischemic changes. No skull fracture. Laceration and swelling left parietal scalp. 1.2 cm incidental notdule left frontal scalp, possibly epidermal cyst or other skin-based lesion. Mucus retention cysts right ethmoid sinus. Visualized mastoid air cells clear CT Interpretation Completed By: Radiologist - Imaging food concession manager C-Spine CT Interpretation: No Acute Changes - No definite acute fracture or malalignment. Exam slightly limited by motion artifact. Multilevel spondylosis stable since 03/14/16. Left chest pacemaker, calcified granuloma right apex. CT Interpretation Completed By: Radiologist - Imaging makeup sales consultant Chest CT Interpretation: Positive (See Comments) - Impression: Minimally depressed manubrial fracture without mediastinal hematoma. 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 Re-Evaluation - Re-Evaluation First Eval Re-Evaluation Time: 00:40 Change: Unchanged Comment: Lac repair was performed, see procedure note Head Injury Course/Dx Assessment/Plan: Herbie Gallardo is an 85 yo female presenting to [facility] with a scalp laceration S/P a fall, accompanied by head and CP related to the fall. Her medication list is reviewed this visit. In the ED course she received zofran and IV fluids. Her Brain CT shows no skull fracture, hemorrhage, mass, or acute territorial infarct. Her CT C-Spine shows no acute fracture or malalignment. 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 After clinical examination and review of her lab and imaging studies, as well as discussion with Dr. Cash, she will be signed out to Dr. Nicholson pending a social worker psychiatric consult. NO CRITICAL CARE TIME. PATIENT DOES NOT FEEL SAFE GOING HOME SHE FEELS HER 89 YO CANNOT CARE FOR HER. SW CONSULT PENDING AT SHIFT CHANGE. - Diagnoses Provider Diagnoses: Laceration of head, Weakness, Closed fracture sternum - Physician Notifications Discussed Care Of Patient With: James Cash - Discussed Pt condition, does not find any reason to admit Pt. Time Discussed With Above Provider: 02:49 Discharge - Discharge Plan Condition: Stable Disposition: OTHER Discharge Disposition Comment: signed out to Dr. Nicholson pending social worker psychiatric consult Referrals: Cassie Sim MD [Primary Care Provider] - 2 Days Additional Instructions: Please follow up with your primary care physician regarding your visit to the emergency department today. Return to the emergency department with any new or recurring symptoms. The documentation as recorded by the aniceto goodman Timothy accurately reflects the service I personally performed and the decisions made by me, Cornelio Blanco MD.
--- NOTE | 2016-08-09 07:32 | RAD ---
INDICATION: Head injury. COMPARISON: Comparison is made with a prior CT of the brain from March 14, 2016. TECHNIQUE: Contiguous axial sections of the brain were obtained from the skull base to the vertex without contrast. FINDINGS: The ventricles, cisterns and sulci are enlarged consistent with diffuse atrophy. There are small areas of decreased density in the subcortical and periventricular white matter suggestive of mild chronic small vessel ischemic changes. No other focal abnormality or mass effect is seen. There is no evidence for hemorrhage. There is focal soft tissue swelling and hematoma present in the scalp in the left parietal region, no fracture is seen. There is a subcutaneous nodule present within the scalp anterior to the left frontal bone measuring 1.2 cm in size which is unchanged from the prior exam and likely incidental. The visualized portion of the paranasal sinuses and mastoid air cells appear clear. IMPRESSION: 1. NO EVIDENCE FOR ACUTE INTRACRANIAL ABNORMALITY. 2. SOFT TISSUE SWELLING AND HEMATOMA IN THE SCALP ADJACENT TO THE LEFT PARIETAL BONE. 3. ATROPHY AND FINDINGS CONSISTENT WITH MILD CHRONIC SMALL VESSEL ISCHEMIC CHANGES.
--- NOTE | 2016-08-09 07:40 | RAD ---
INDICATION: Trauma. COMPARISON: Comparison is made with a prior CT of the cervical spine from March 14, 2016. TECHNIQUE: Contiguous axial sections were obtained from the skull base through the T2 vertebra. Images were reconstructed in the sagittal and coronal planes. The exam is limited due to motion artifact. FINDINGS: The vertebra are in normal alignment. No prevertebral soft tissue swelling or fracture is seen. At the C5-C6 level there is moderate disc space narrowing, posterior uncinate process spurring and mild hypertrophic changes within the facet joints. There is mild spinal canal narrowing and mild to moderate bilateral neural foraminal narrowing. No other areas of spinal canal or neural foraminal narrowing are seen. Incidental note is made of a calcified nodule present at the right lung apex measuring 4 mm in size most consistent with a granuloma. IMPRESSION: 1. LIMITED STUDY, NO EVIDENCE FOR FRACTURE OR SUBLUXATION. 2. MODERATE DEGENERATIVE DISC DISEASE AT THE C5-C6 LEVEL.
--- NOTE | 2016-08-09 08:07 | RAD ---
INDICATION: Sternal pain after a fall COMPARISON: CT of the chest dated March 14, 2016 and chest x-ray dated June 26, 2016 TECHNIQUE: Axial source images of the chest were acquired without intravenous contrast from just above the lung apices to the base of the diaphragm. Coronal and sagittal reconstructed images were acquired. FINDINGS: At the right lung apex there is a faint 6 mm groundglass nodule unchanged from the previous CT examination. At the lateral aspect of the right middle lobe (image 36) there is a 2 mm pulmonary nodule, unchanged from the previous CT examination. The lungs are otherwise grossly clear aside from mild pleural base hypoventilatory changes at the dependent lungs bilaterally. The heart is normal in size. 2 cardiac pacer wires are seen overlying the heart connected to the patient's left upper chest pacemaker. There is no evidence of pericardial effusion. Calcified atherosclerosis is noted of the coronary arteries and arch of the aorta. There is no evidence of aortic aneurysm or dissection. There is no readily apparent mediastinal, hilar, or axillary lymphadenopathy. There is a chronic compression deformity of the L1 vertebral body. Hyperdense material at this level indicates the patient has undergone vertebral augmentation. There are new compression deformities at the T10 and T7 vertebral bodies that were not seen on the previous CT examination. The T10 compression deformity was seen on the June 26, 2016 chest x-ray. The T10 compression deformity exhibits a small degree of retropulsion of the posterior superior endplate measuring up to 4 mm as well as fragmentation of the cortex anteriorly where there is soft tissue swelling. The T7 compression deformity does not have the same acute appearing findings. The sternum and manubrium are intact on the axial view images. On the sagittal reformats there is the appearance of discontinuity of the anterior cortex (sagittal image 57) but this is not reproduced on the source images and is likely artifactual. Healed sclerotic rib fractures are evident at the T10 and T9 lateral ribs. The spleen as mildly enlarged measuring 12.8 cm in greatest axial dimension, a reduction from 14.9 cm on the previous CT examination. IMPRESSION: 1. There is a new compression deformity of the T7 vertebral body when compared to the most recent thoracic spine imaging dated June 26, 2016. There is no significant retropulsion of fragments of the middle column vertebral body. 2. Compression deformities of T10 and L1 are similar to prior imaging, except the patient appears to have undergone L1 vertebral augmentation. 3. No definite fracture of the sternum. 4. Additional chronic and degenerative changes described in the body of the report.
[2016-08-09 12:01] VITALS: BP 102/63
--- NOTE | 2016-08-09 14:19 | ED ---
Delia Nuñez Salem, scribed for Walter Nicholson MD on 08/09/16 at 1109 . Progress - Progress Note Progress Note: Patient was signed out from Dr. Blanco. 85 y/o F with head laceration and repair. Pt had a social work consult and will be DCd with social work services at home. CT or brain and C-spine were negative. CT of chest shoed new T8 compression fracture. Course/Dx - Diagnoses Provider Diagnoses: Laceration of head Discharge - Discharge Plan Condition: Stable Disposition: HOME Patient Education Materials: Laceration (ED) Referrals: Cassie Sim MD [Primary Care Provider] - 2 Days Harvinder Brown MD [Medical Doctor] - Additional Instructions: Please follow up with your primary care physician and Dr. Brown regarding your visit to the emergency department today. Return to the emergency department with any new or recurring symptoms. Sutures and porfirio will need to be removed in 7 days The documentation as recorded by the emmyibDelia bailey Salem accurately reflects the service I personally performed and the decisions made by , Walter Nicholson MD.
== END | disposition home or self-care (01) ==
LOC: ED 21:55
DX: S01.01XA Laceration without foreign body of scalp, initial encounter (principal); S22.20XA Unspecified fracture of sternum, initial encounter for closed fracture; R07.9 Chest pain, unspecified; R06.02 Shortness of breath; R51 Headache; W19.XXXA Unspecified fall, initial encounter; Y93.9 Activity, unspecified; Y92.9 Unspecified place or not applicable; Y99.9 Unspecified external cause status; R53.1 Weakness; Z88.2 Allergy status to sulfonamides; Z91.030 Bee allergy status; Z91.041 Radiographic dye allergy status; Z87.891 Personal history of nicotine dependence
CPT/HCPCS: 12001; 36415; 70450; 71250; 72125; 80053; 83605; 83735; 83880; 84484; 85025; 85610; 85730; 86140; 96374; 96375; 99282; J2405

== ENCOUNTER 2016-08-10 15:50 | Inpatient (IN) | payer MEDICARE, OTHER ==
[2016-08-10] MEDS ORDERED: Morphine INJ* 2 MG/ML 1 ML SYRINGE IV PRN (17:57)
[2016-08-10] MEDS ORDERED: Acetaminophen TAB* 325 MG PO PRN (17:57)
[2016-08-10] MEDS ORDERED: clonazePAM TAB(*) 0.5 MG PO PRN (18:04)
[2016-08-10 19:28] LABS: Hematocrit 35 % (35-47); Hemoglobin 11.2 g/dl (12.0-16.0); Mean Corpuscular HGB Conc 32 g/dl (31-36); Mean Corpuscular Hemoglobin 29 pg (27-31); Mean Corpuscular Volume 91 fL (80-97); Mean Platelet Volume 7 um3 (7.4-10.4); Red Blood Count 3.91 10^6/ul (4.0-5.4); Red Cell Distribution Width 20 % (10.5-15); White Blood Count 11.3 10^3/ul (3.5-10.8)
[2016-08-10 19:41] LABS: BUN/Creatinine Ratio 39.3 (8-20); Calcium 8.8 mg/dL (8.6-10.3); EGFR African American 132.6 (>60); EGFR Non-African American 103.1 (>60); Potassium 4.1 mmol/L (3.5-5.0)
[2016-08-10] MEDS: Senna TAB PO SCH (20:15)
[2016-08-10] MEDS: CMCS: Dabigatran CAP(NF) 75 MG CAP PO SCH (20:16)
[2016-08-10] MEDS: Citalopram TAB* 10 MG PO SCH (20:17)
[2016-08-10] MEDS: Docusate CAP* 100 MG PO SCH (20:22)
[2016-08-10] MEDS: Dofetilide CAP* 250 MCG PO SCH (20:29)
[2016-08-10 22:56] LABS: Urine Bacteria 1+ (Absent); Urine Bilirubin Negative (Negative); Urine Glucose Negative (Negative); Urine Nitrite Positive (Negative)
[2016-08-11] MEDS: HYDROcodone/ACETAMIN 5-325 MG* 1 TAB PO PRN ×4 (00:27→20:31)
--- NOTE | 2016-08-11 02:50 | HP ---
CC: Dr. Sim * HISTORY AND PHYSICAL: DATE OF ADMISSION: 08/10/16 PRIMARY CARE PROVIDER: Dr. Sim ATTENDING PHYSICIAN WHILE IN THE HOSPITAL: Dr. Lashell Moralez * (report dictated by Brendan Villalobos NP) CHIEF COMPLAINT: Back pain. HISTORY OF PRESENT ILLNESS: Mrs. Gallardo is an 85-year-old female who in middle of June had a kyphoplasty at L1. She also has a compression fracture of T10 and now on Sunday, she was putting on the makeup and getting ready for the day in her bathroom. She went to lean forward, the daughter thinks to get powder for her face, and she kept going and she crossed her legs she fell, hit the front of her chest on something. The patient does not exactly remember what she fell and hit and then she fell and hit her head, and she does recall the entire thing and when she fell. She states that she immediately had a significant amount of pain. The family was concerned and they brought her into the ER because of the fall. She went to the ER, she was there for quite sometime and was discharged the following morning on Sunday home with home services. Yesterday, when she was evaluated by Home Services, it was noted that she was still having a significant amount of pain. She was unable to participate with PT. She was really unable to move without having an extreme amount of pain, and the patient's primary was alerted to this and primary felt that she needed to have better pain control and we were asked to evaluate for admission. The patient states the pain was mostly right around her bra line whenever she sits forward. She does state that she has pain in her sternum when she takes a deep breath as well ever since the fall. She denies any chest pain at rest. She denies having any shortness of breath or any abdominal pain. She denies having any nausea and she denies having any vomiting. She states she was not constipated. She recently was on narcotics for the recent kyphoplasty, but there was concern because the pain was just too much and the fact that she could not really perform her activities of daily living at home, and she could not participate with her physical therapy that was already ordered for her kyphoplasty. So, she came into the hospital today for evaluation for admission. PAST MEDICAL HISTORY: Significant for: 1. AFib. 2. Depression. 3. Hypothyroidism. 4. Osteoporosis. 5. Polycythemia vera. 6. Migraine. PAST SURGICAL HISTORY: 1. She has had a pacemaker. 2. L1 kyphoplasty. 3. Hysterectomy. HOME MEDICATIONS: Include: 1. Oxycodone 2.5 mg p.o. b.i.d. as needed. 2. Klonopin 0.25 mg p.o. bedtime as needed. 3. Vitamin D2 125 mg p.o. monthly. 4. Senna 1 to 2 tablets in the morning. 5. Prilosec 20 mg q.a.m. 6. Metoprolol XL 50 mg p.o. daily. 7. Synthroid 125 mcg daily. 8. Hydroxyurea 50 mg p.o. q.a.m. 9. Lexapro 5 mg daily. 10. EpiPen 1 injection daily as needed for allergies. 11. Tikosyn 250 mcg p.o. b.i.d. 12. Pradaxa 75mg p.o. b.i.d. 13. Aspirin 81 mg daily. ALLERGIES TO MEDICATIONS: Include BEE, SULFA, and IV DYE. FAMILY HISTORY: Mother had a history of CVA, diabetes, breast cancer. Father had a history of COPD. SOCIAL HISTORY: She is a former smoker. She does not smoke anymore. She lives with her . Surrogate decision maker is her son and daughter. REVIEW OF SYSTEMS: There is no documented fever. She denies having any significant weight change. There was no double vision. She denies having any ear discharge. There is no rhinorrhea. No sore throat. No thyroid enlargement. She denies having any chest pain. Currently, denies having any abdominal pain. No nausea, no vomiting, no dysuria. No frequency. No seizure. No loss of consciousness, pruritus, and no skin ulcerations. Review of 14 systems completed, all others negative. PHYSICAL EXAMINATION GENERAL: At this time, Mrs. Gallardo is an 85-year-old female patient. She is sitting in the hospital bed. She appears to be well nourished, well developed. VITAL SIGNS: Reveal blood pressure 102/63, pulse 85, respirations 18, O2 sat 96 %, temperature 99.1. HEENT: Head: Atraumatic. Eyes: EOMs are intact. Sclerae anicteric and not pale. Throat: Oral mucosa appears to be moist. No oropharyngeal erythema. NECK: Supple. LUNGS: Clear to auscultation bilaterally. No wheezes, rales, or rhonchi. HEART: Sounds S1, S2. Regular rate and rhythm. No murmurs, rubs, or gallops. ABDOMEN: Soft, flat, nontender. Bowel sounds present. EXTREMITIES: Pulses are 2+ throughout. She is able to move all 4 extremities with 5/5 strength. NEUROLOGIC: She is awake, alert, and oriented x3. Tongue midline. Lube Technician were equal. No focal deficits. SKIN: Grossly intact with the exception she does have a staple line to her head , which is clean, dry, and intact. LABORATORY DATA: Labs from yesterday revealed WBC of 15.2, RBC of 4.56, hemoglobin of 12.8, hematocrit of 41, platelet count of 211. The INR was 1.22. PTT 44.3. Sodium 138, potassium 4.3, chloride of 100, bicarb was 24, BUN 27, creatinine 0.65, glucose 157, lactic 1.6, calcium 9.0, mag 1.9, total bili 0.5, AST 15, ALT 9, alk phos 47. Troponin 0. BNP 122. Albumin 3.9. She had a chest CT, which showed there is new compression deformity at T7 vertebral body. When compared to the most recent thoracic spine imaging data by June 26, there is no significant retropulsion in the fragments of the middle column vertebral body, compression deformities at T10, L1 are similar to prior imaging except the patient appears to have undergone L1 vertebral augmentation. No definite fracture of the sternum. Additional chronic and degenerative changes described at the body of the report. She had a cervical spine CT, which revealed no evidence for fracture or subluxation, moderate degenerative disk disease at C5- C6. She had brain CT, which showed no evidence for acute intracranial abnormalities , soft tissue swelling and hematoma of the scalp adjacent to left parietal bone , atrophy and signs most consistent with mild chronic small vessel ischemic changes. Old medical records reviewed. ASSESSMENT AND PLAN: Mrs. Gallardo is an 85-year-old female patient coming into the [address] [place] [address] today with complaints of back pain. She will be admitted under observation status for: 1. Chest wall pain. The pain is mostly when she sits forward and it is right around the bra line, which I believe is the T7 innervation, so I think she is having some radiculopathy. Plan at this point, I will go ahead and put her on some p.r.n. hydrocodone, morphine, and Lidoderm. We will give her a bowel regimen as well, I ordered PT as well. I am going to check a CBC and a BMP today. Her white count yesterday was 15,000; we want to make sure she does not have any active infection. I am going to get urine. She did have a chest CT, which did not show any infiltrates yesterday. So, we will wait for these findings and I will continue to follow. 2. Atrial fibrillations. Continue medications as prescribed. 3. Depression: Supportive care. 4. Hypothyroidism. Continue medications as prescribed. 5. Osteoporosis. Continue with current medical regimen. 6. Polycythemia vera. Her H and H was stable. We will go ahead and continue with her hydroxyurea. 7. Migraines. Continue with medications as described. 8. DVT prophylaxis. She is on Pradaxa. We will continue with this. 9. Code status: She is a full code. 10. Fluids, electrolytes, and nutrition: She can have a heart healthy diet. TIME SPENT: Time spent on the admission was 60 minutes; greater than half the time was spent [id number] with the patient obtaining my history and physical, other half the time spent going over the plan of care with the patient and implementing plan of care. I did discuss the plan of care with my attending, Dr. Moralez, she is in agreement. BRENDAN VILLALOBOS, ROMI [id number]/[facility] #: [id number] DOLLY
[2016-08-11 05:56] LABS: Hematocrit 33 % (35-47); Hemoglobin 10.9 g/dl (12.0-16.0); Mean Corpuscular HGB Conc 33 g/dl (31-36); Mean Corpuscular Hemoglobin 29 pg (27-31); Mean Corpuscular Volume 90 fL (80-97); Mean Platelet Volume 7 um3 (7.4-10.4); Red Blood Count 3.72 10^6/ul (4.0-5.4); Red Cell Distribution Width 20 % (10.5-15); White Blood Count 8.3 10^3/ul (3.5-10.8)
[2016-08-11 06:19] LABS: BUN/Creatinine Ratio 31.5 (8-20); Calcium 8.7 mg/dL (8.6-10.3); EGFR African American 138.3 (>60); EGFR Non-African American 107.6 (>60); Potassium 3.7 mmol/L (3.5-5.0)
[2016-08-11] MEDS: Levothyroxine TAB* 125 MCG TAB PO SCH (06:19)
[2016-08-11] MEDS: Lidocaine PATCH 5%* 1 PATCH TRANSDERM SCH (09:40)
[2016-08-11] MEDS: Omeprazole CAP* 20 MG PO SCH (09:42)
[2016-08-11] MEDS: Dofetilide CAP* 250 MCG PO SCH ×2 (09:42→20:32)
[2016-08-11] MEDS: Metoprolol Succinate XL TAB* 50 MG PO SCH (09:42)
[2016-08-11] MEDS: Aspirin EC Low Dose* 81 MG TAB.EC PO SCH (09:42)
[2016-08-11] MEDS: CMCS: Dabigatran CAP(NF) 75 MG CAP PO SCH ×2 (09:42→20:29)
[2016-08-11] MEDS: Docusate CAP* 100 MG PO SCH ×2 (09:42→20:30)
[2016-08-11] MEDS: Citalopram TAB* 10 MG PO SCH ×2 (09:43→20:30)
[2016-08-11] MEDS: HydroxyUREA CAP* 500 MG CAP PO SCH (09:45)
[2016-08-11] MEDS: cefTRIAXone VIAL(*) 1,000 MG in NS 0.9% 50 ML* 50 ML IVPB SCH (10:50)
[2016-08-11] MEDS ORDERED: NS 0.9% 1000 ML* 1,000 ML IV SCH (12:00)
--- NOTE | 2016-08-11 16:40 | PN ---
Subjective Date of Service: 08/11/16 Interval History: Seen and examined Pain worst in mid chest especially with moving and deep breaths Feels like a "lump on a log" due her inability to move without pain no other complaints RN notes malodorous urine Objective Active Medications: Acetaminophen (Tylenol Tab*) 650 mg PO Q4H PRN PRN Reason: FEVER/PAIN Hydrocodone Bitart/Acetaminophen ([place] 5-325 Tab*) 2 tab PO Q4H PRN PRN Reason: PAIN Last Admin: 08/11/16 12:32 Dose: 2 tab Aspirin (Aspirin Ec Low Dose*) 81 mg PO QAM [facility] Last Admin: 08/11/16 09:42 Dose: 81 mg Citalopram Hydrobromide (Celexa Tab*) 5 mg PO BID [facility] PRN Reason: Protocol Last Admin: 08/11/16 09:43 Dose: 5 mg Clonazepam (Klonopin Tab(*)) 0.25 mg PO BEDTIME PRN PRN Reason: SLEEP Dabigatran (Pradaxa Cap(Nf)) 75 mg PO BID [facility] Last Admin: 08/11/16 09:42 Dose: 75 mg Docusate Sodium (Colace Cap*) 100 mg PO BID [facility] Last Admin: 08/11/16 09:42 Dose: 100 mg Dofetilide (Tikosyn Cap*) 250 mcg PO BID [facility] Last Admin: 08/11/16 09:42 Dose: 250 mcg Hydroxyurea (Hydrea Cap*) 500 mg PO QAM [facility] Last Admin: 08/11/16 09:45 Dose: 500 mg Ceftriaxone Sodium 1,000 mg/ (Sodium Chloride) 50 mls @ 200 mls/hr IVPB Q24H [facility] Last Admin: 08/11/16 10:50 Dose: 200 mls/hr Sodium Chloride (Ns 0.9% 1000 Ml*) 1,000 mls @ 175 mls/hr IV PER RATE [facility] Stop: 08/11/16 17:43 Last Admin: 08/11/16 12:33 Dose: 175 mls/hr Levothyroxine Sodium (Synthroid Tab*) 125 mcg PO DAILY@0600 [facility] Last Admin: 08/11/16 06:19 Dose: 125 mcg Lidocaine (Lidoderm 5% Patch*) 1 patch TRANSDERM DAILY [facility] Last Admin: 08/11/16 09:40 Dose: 1 patch Metoprolol Succinate (Toprol Xl Tab*) 50 mg PO QAM [facility] Last Admin: 08/11/16 09:42 Dose: 50 mg Omeprazole (Prilosec Cap*) 20 mg PO DAILY@0730 [facility] Last Admin: 08/11/16 09:42 Dose: 20 mg Pharmacy Profile Note (Lidocaine Patch Remove*) 1 note PATCH OFF 2100 [facility] Senna (Senokot Tab*) 2 tab PO BEDTIME [facility] Last Admin: 08/10/16 20:15 Dose: 2 tab Vital Signs 08/10/16 08/10/16 08/10/16 17:35 19:27 23:33 Temperature 98.3 F 98.4 F 98.4 F Pulse Rate 79 92 76 Respiratory 16 16 15 Rate Blood Pressure 113/61 104/65 132/72 (mmHg) O2 Sat by Pulse 96 94 Oximetry 08/10/16 08/11/16 08/11/16 23:58 00:27 02:27 Temperature Pulse Rate 82 Respiratory 18 15 Rate Blood Pressure (mmHg) O2 Sat by Pulse 94 Oximetry 08/11/16 08/11/16 08/11/16 03:25 06:19 08:00 Temperature 98.6 F Pulse Rate 96 Respiratory 14 19 20 Rate Blood Pressure 113/70 (mmHg) O2 Sat by Pulse 96 Oximetry 08/11/16 08/11/16 08/11/16 08:05 08:19 12:32 Temperature 98.1 F Pulse Rate 89 Respiratory 17 16 20 Rate Blood Pressure 112/56 (mmHg) O2 Sat by Pulse 96 Oximetry 08/11/16 14:32 Temperature Pulse Rate Respiratory 16 Rate Blood Pressure (mmHg) O2 Sat by Pulse Oximetry Oxygen Devices in Use Now: None Appearance: NAD Eyes: No Scleral Icterus, PERRLA Ears/Nose/Mouth/Throat: NL Teeth, Lips, Gums, Clear Oropharnyx, Mucous Membranes Moist Neck: NL Appearance and Movements; NL JVP Respiratory: Symmetrical Chest Expansion and Respiratory Effort, Clear to Auscultation Cardiovascular: RRR, - - chest wall TTP Abdominal: NL Sounds; No Tenderness; No Distention, No Hepatosplenomegaly Lymphatic: No Cervical Adenopathy Extremities: No Edema Skin: No Rash or Ulcers Neurological: Alert and Oriented x 3 Result Diagrams: 08/11/16 05:16 08/11/16 05:16 Microbiology and Other Data: Microbiology 08/10/16 21:40 Urine Culture - Preliminary Urine Escherichia Coli Assess/Plan/Problems-Billing Assessment: 85 yo F p/w fall found with new T7 fracture, chest pain after impact, and suspected UTI - Patient Problems (1) Traumatic compression fracture of T7 thoracic vertebra Comment: Chest pain is also in T7 distribution. Suspect direct trauma to chest ( although no bruising) or referred Worked with PT and performed poorly. Unsafe discharge to home Remain hospitalized for continued pain management, PT, and placement (2) Hypothyroidism Current Visit: No Status: Acute Code(s): E03.9 - HYPOTHYROIDISM, UNSPECIFIED SNOMED Code(s): 91416875 Comment: TSH wnl on 08/29/15. Continue her usual dose levothyroxine. (3) Urinary tract infection Comment: E. coli tx CTX and narrow based on sensitivites (4) History of atrial fibrillation Comment: pradaxa, tikosyn, metoprolol (5) DVT prophylaxis Comment: pradaxa
[2016-08-11] MEDS: Senna TAB PO SCH (20:31)
[2016-08-11] MEDS: Lidocaine Patch REMOVE* 1 NOTE MISC PATCH OFF SCH (20:35)
[2016-08-12] MEDS: Omeprazole CAP* 20 MG PO SCH (05:31)
[2016-08-12] MEDS: Levothyroxine TAB* 125 MCG TAB PO SCH (05:38)
[2016-08-12] MEDS: Lidocaine PATCH 5%* 1 PATCH TRANSDERM SCH (10:25)
[2016-08-12] MEDS: CMCS: Dabigatran CAP(NF) 75 MG CAP PO SCH ×2 (10:28→22:26)
[2016-08-12] MEDS: cefTRIAXone VIAL(*) 1,000 MG in NS 0.9% 50 ML* 50 ML IVPB SCH (10:28)
[2016-08-12] MEDS: HYDROcodone/ACETAMIN 5-325 MG* 1 TAB PO PRN ×2 (10:28→22:27)
[2016-08-12] MEDS: Aspirin EC Low Dose* 81 MG TAB.EC PO SCH (10:30)
[2016-08-12] MEDS: Dofetilide CAP* 250 MCG PO SCH ×2 (10:30→22:29)
[2016-08-12] MEDS: Citalopram TAB* 10 MG PO SCH ×2 (10:30→22:26)
[2016-08-12] MEDS: Docusate CAP* 100 MG PO SCH ×2 (10:30→22:27)
[2016-08-12] MEDS: HydroxyUREA CAP* 500 MG CAP PO SCH (10:30)
[2016-08-12] MEDS: Metoprolol Succinate XL TAB* 50 MG PO SCH (10:31)
--- NOTE | 2016-08-12 16:20 | PN ---
Subjective Date of Service: 08/12/16 Interval History: Feels "so-so" Pain is a little better but still hurts to move Denies current or preceding dysuria, urinary hesitancy or frequency but does endorse one episode of malodorous urine Objective Active Medications: Acetaminophen (Tylenol Tab*) 650 mg PO Q4H PRN PRN Reason: FEVER/PAIN Hydrocodone Bitart/Acetaminophen ([place] 5-325 Tab*) 2 tab PO Q4H PRN PRN Reason: PAIN Last Admin: 08/12/16 10:28 Dose: 2 tab Aspirin (Aspirin Ec Low Dose*) [facility] Last Admin: 08/12/16 10:30 Dose: 81 mg Ciprofloxacin (Cipro Tab*) 500 mg PO Q12HR [facility] Citalopram Hydrobromide (Celexa Tab*) 5 mg PO BID [facility] PRN Reason: Protocol Last Admin: 08/12/16 10:30 Dose: 5 mg Clonazepam (Klonopin Tab(*)) 0.25 mg PO BEDTIME PRN PRN Reason: SLEEP Dabigatran (Pradaxa Cap(Nf)) 75 mg PO BID [facility] Last Admin: 08/12/16 10:28 Dose: 75 mg Docusate Sodium (Colace Cap*) 100 mg PO BID [facility] Last Admin: 08/12/16 10:30 Dose: 100 mg Dofetilide (Tikosyn Cap*) 250 mcg PO BID [facility] Last Admin: 08/12/16 10:30 Dose: 250 mcg Hydroxyurea (Hydrea Cap*) 500 mg PO [facility] Last Admin: 08/12/16 10:30 Dose: 500 mg Levothyroxine Sodium (Synthroid Tab*) 125 mcg PO DAILY@0600 [facility] Last Admin: 08/12/16 05:38 Dose: 125 mcg Lidocaine (Lidoderm 5% Patch*) 1 patch TRANSDERM DAILY [facility] Last Admin: 08/12/16 10:25 Dose: 1 patch Metoprolol Succinate (Toprol Xl Tab*) 50 mg PO [facility] Last Admin: 08/12/16 10:31 Dose: 50 mg Omeprazole (Prilosec Cap*) 20 mg PO DAILY@0730 [facility] Last Admin: 08/12/16 05:31 Dose: 20 mg Pharmacy Profile Note (Lidocaine Patch Remove*) 1 note PATCH OFF 2100 [facility] Last Admin: 08/11/16 20:35 Dose: 1 note Senna (Senokot Tab*) 2 tab PO BEDTIME [facility] Last Admin: 08/11/16 20:31 Dose: 2 tab Vital Signs 08/11/16 08/11/16 08/11/16 19:31 20:00 20:31 Temperature 98.1 F Pulse Rate 90 Respiratory 20 20 20 Rate Blood Pressure 128/62 (mmHg) O2 Sat by Pulse 97 Oximetry 08/11/16 08/11/16 08/12/16 23:12 23:42 00:00 Temperature 98.2 F 98.6 F Pulse Rate 77 98 Respiratory 16 20 Rate Blood Pressure 137/52 111/69 (mmHg) O2 Sat by Pulse 97 95 96 Oximetry 08/12/16 08/12/16 08/12/16 03:53 04:22 07:17 Temperature 97.8 F 98.2 F 98.6 F Pulse Rate 99 88 100 Respiratory 16 16 16 Rate Blood Pressure 134/72 125/90 130/82 (mmHg) O2 Sat by Pulse 97 96 95 Oximetry 08/12/16 08/12/16 08/12/16 08:00 08:17 10:28 Temperature Pulse Rate Respiratory 18 18 Rate Blood Pressure (mmHg) O2 Sat by Pulse 96 Oximetry 08/12/16 08/12/16 12:19 12:28 Temperature 98.3 F Pulse Rate 93 Respiratory 16 18 Rate Blood Pressure 114/57 (mmHg) O2 Sat by Pulse 97 Oximetry Oxygen Devices in Use Now: None Appearance: stated age, NAD Eyes: No Scleral Icterus Ears/Nose/Mouth/Throat: NL Teeth, Lips, Gums, Clear Oropharnyx Neck: NL Appearance and Movements; NL JVP, Trachea Midline Respiratory: Symmetrical Chest Expansion and Respiratory Effort, Clear to Auscultation Cardiovascular: RRR, - - pain with palpation of chest wall, no CVAT Neurological: Alert and Oriented x 3 Result Diagrams: 08/11/16 05:16 08/11/16 05:16 Microbiology and Other Data: Microbiology 08/10/16 21:40 Urine Culture - Preliminary Urine Escherichia Coli Assess/Plan/Problems-Billing Assessment: 85 yo F p/w fall found with new T7 fracture, chest pain after impact, and potential UTI - Patient Problems (1) Traumatic compression fracture of T7 thoracic vertebra Comment: Chest pain is also in T7 distribution. Suspect direct trauma to chest ( although no bruising) or referred Worked with PT and performed poorly. Unsafe discharge to home Remain hospitalized for continued pain management, PT, and placement (2) Hypothyroidism Current Visit: No Status: Acute Code(s): E03.9 - HYPOTHYROIDISM, UNSPECIFIED SNOMED Code(s): 21573410 Comment: TSH wnl on 08/29/15. Continue her usual dose levothyroxine. (3) Urinary tract infection Comment: No urinary symptoms. Will continue ciprofloxacin but would not broaden to carbapenum without urinary symptoms E. coli (4) History of atrial fibrillation Comment: pradaxa, tikosyn, metoprolol (5) DVT prophylaxis Comment: pradaxa
[2016-08-12] MEDS: Ciprofloxacin TAB* 500 MG PO SCH (22:26)
[2016-08-12] MEDS: Senna TAB PO SCH (22:26)
[2016-08-12] MEDS: Lidocaine Patch REMOVE* 1 NOTE MISC PATCH OFF SCH (23:25)
[2016-08-13 05:22] LABS: Hematocrit 34 % (35-47); Hemoglobin 11.1 g/dl (12.0-16.0); Mean Corpuscular HGB Conc 33 g/dl (31-36); Mean Corpuscular Hemoglobin 30 pg (27-31); Mean Corpuscular Volume 93 fL (80-97); Mean Platelet Volume 8 um3 (7.4-10.4); Red Blood Count 3.67 10^6/ul (4.0-5.4); Red Cell Distribution Width 20 % (10.5-15); White Blood Count 9.1 10^3/ul (3.5-10.8)
[2016-08-13] MEDS: Levothyroxine TAB* 125 MCG TAB PO SCH (05:45)
[2016-08-13] MEDS: HYDROcodone/ACETAMIN 5-325 MG* 1 TAB PO PRN ×3 (05:47→22:23)
[2016-08-13] MEDS: Omeprazole CAP* 20 MG PO SCH (08:56)
[2016-08-13] MEDS: Ciprofloxacin TAB* 500 MG PO SCH ×2 (08:56→21:44)
[2016-08-13] MEDS: Docusate CAP* 100 MG PO SCH ×2 (08:56→21:43)
[2016-08-13] MEDS: CMCS: Dabigatran CAP(NF) 75 MG CAP PO SCH ×2 (08:56→21:43)
[2016-08-13] MEDS: Citalopram TAB* 10 MG PO SCH ×2 (08:57→21:44)
[2016-08-13] MEDS: Metoprolol Succinate XL TAB* 50 MG PO SCH (08:57)
[2016-08-13] MEDS: Aspirin EC Low Dose* 81 MG TAB.EC PO SCH (08:57)
[2016-08-13] MEDS: HydroxyUREA CAP* 500 MG CAP PO SCH (08:58)
[2016-08-13] MEDS: Dofetilide CAP* 250 MCG PO SCH ×2 (08:58→22:24)
[2016-08-13] MEDS: Lidocaine PATCH 5%* 1 PATCH TRANSDERM SCH (09:45)
--- NOTE | 2016-08-13 13:58 | PN ---
Subjective Date of Service: 08/13/16 Interval History: Pain improving OOB to chair yesterday with help Very concerned about falling Objective Active Medications: Acetaminophen (Tylenol Tab*) 650 mg PO Q4H PRN PRN Reason: FEVER/PAIN Hydrocodone Bitart/Acetaminophen ([place] 5-325 Tab*) 2 tab PO Q4H PRN PRN Reason: PAIN Last Admin: 08/13/16 11:56 Dose: 2 tab Aspirin (Aspirin Ec Low Dose*) 81 mg PO QAM [facility] Last Admin: 08/13/16 08:57 Dose: 81 mg Ciprofloxacin (Cipro Tab*) 500 mg PO Q12HR [facility] Last Admin: 08/13/16 08:56 Dose: 500 mg Citalopram Hydrobromide (Celexa Tab*) 5 mg PO BID [facility] PRN Reason: Protocol Last Admin: 08/13/16 08:57 Dose: 5 mg Clonazepam (Klonopin Tab(*)) 0.25 mg PO BEDTIME PRN PRN Reason: SLEEP Dabigatran (Pradaxa Cap(Nf)) 75 mg PO BID [facility] Last Admin: 08/13/16 08:56 Dose: 75 mg Docusate Sodium (Colace Cap*) 100 mg PO BID [facility] Last Admin: 08/13/16 08:56 Dose: 100 mg Dofetilide (Tikosyn Cap*) 250 mcg PO BID [facility] Last Admin: 08/13/16 08:58 Dose: 250 mcg Hydroxyurea (Hydrea Cap*) 500 mg PO QAM [facility] Last Admin: 08/13/16 08:58 Dose: 500 mg Levothyroxine Sodium (Synthroid Tab*) 125 mcg PO DAILY@0600 [facility] Last Admin: 08/13/16 05:45 Dose: 125 mcg Lidocaine (Lidoderm 5% Patch*) 1 patch TRANSDERM DAILY [facility] Last Admin: 08/13/16 09:45 Dose: 1 patch Metoprolol Succinate (Toprol Xl Tab*) 50 mg PO QAM [facility] Last Admin: 08/13/16 08:57 Dose: 50 mg Omeprazole (Prilosec Cap*) 20 mg PO DAILY@0730 [facility] Last Admin: 08/13/16 08:56 Dose: 20 mg Pharmacy Profile Note (Lidocaine Patch Remove*) 1 note PATCH OFF 2100 [facility] Last Admin: 08/12/16 23:25 Dose: Not Given Senna (Senokot Tab*) 2 tab PO BEDTIME [facility] Last Admin: 08/12/16 22:26 Dose: 2 tab Vital Signs 08/12/16 08/12/16 08/12/16 15:49 20:00 20:40 Temperature 98.0 F 97.9 F Pulse Rate 90 92 Respiratory 20 18 20 Rate Blood Pressure 117/76 108/79 (mmHg) O2 Sat by Pulse 96 97 Oximetry 08/12/16 08/12/16 08/13/16 22:27 23:21 00:00 Temperature 98.2 F Pulse Rate 93 Respiratory 16 16 Rate Blood Pressure 103/68 (mmHg) O2 Sat by Pulse 96 96 Oximetry 08/13/16 08/13/16 08/13/16 00:27 03:31 05:47 Temperature 98.2 F Pulse Rate 85 Respiratory 18 14 16 Rate Blood Pressure 116/73 (mmHg) O2 Sat by Pulse 94 Oximetry 08/13/16 08/13/16 08/13/16 07:47 08:00 08:07 Temperature 98.2 F Pulse Rate 95 Respiratory 18 18 16 Rate Blood Pressure 120/80 (mmHg) O2 Sat by Pulse 95 Oximetry 08/13/16 08/13/16 08:48 11:56 Temperature Pulse Rate Respiratory 18 Rate Blood Pressure (mmHg) O2 Sat by Pulse 94 Oximetry Oxygen Devices in Use Now: None Appearance: NAD Eyes: No Scleral Icterus, PERRLA Ears/Nose/Mouth/Throat: Clear Oropharnyx, Mucous Membranes Moist Neck: NL Appearance and Movements; NL JVP, Trachea Midline Respiratory: Symmetrical Chest Expansion and Respiratory Effort, Clear to Auscultation Cardiovascular: RRR, - - chest wall TTP but improved Abdominal: NL Sounds; No Tenderness; No Distention, No Hepatosplenomegaly, - - no CVAT Lymphatic: No Cervical Adenopathy Extremities: No Edema Skin: No Rash or Ulcers Neurological: Alert and Oriented x 3 Result Diagrams: 08/13/16 05:09 08/11/16 05:16 Microbiology and Other Data: Microbiology 08/10/16 21:40 Urine Culture - Preliminary Urine Escherichia Coli Assess/Plan/Problems-Billing Assessment: 85 yo F p/w fall found with new T7 fracture, chest pain after impact, and potential UTI - Patient Problems (1) Traumatic compression fracture of T7 thoracic vertebra Comment: Chest pain is also in T7 distribution. Suspect direct trauma to chest ( although no bruising) or referred Worked with PT and performed poorly. Unsafe discharge to home Remain hospitalized for continued pain management, PT, and placement (2) Hypothyroidism Current Visit: No Status: Acute Code(s): E03.9 - HYPOTHYROIDISM, UNSPECIFIED SNOMED Code(s): 82933373 Comment: TSH wnl on 08/29/15. Continue her usual dose levothyroxine. (3) Urinary tract infection Comment: No urinary symptoms. Will continue ciprofloxacin but would not broaden to carbapenum without urinary symptoms E. coli (4) History of atrial fibrillation Comment: pradaxa, tikosyn, metoprolol EKG with nl QTc (5) DVT prophylaxis Comment: pradaxa
[2016-08-13] MEDS: Senna TAB PO SCH (21:43)
[2016-08-13 21:50] LABS: Magnesium 1.8 mg/dL (1.9-2.7); Potassium 4.3 mmol/L (3.5-5.0)
[2016-08-13] MEDS: Lidocaine Patch REMOVE* 1 NOTE MISC PATCH OFF SCH (23:06)
[2016-08-14] MEDS: Levothyroxine TAB* 125 MCG TAB PO SCH (06:32)
[2016-08-14] MEDS: Metoprolol Succinate XL TAB* 50 MG PO SCH (09:32)
[2016-08-14] MEDS: Aspirin EC Low Dose* 81 MG TAB.EC PO SCH (09:32)
[2016-08-14] MEDS: Omeprazole CAP* 20 MG PO SCH (09:32)
[2016-08-14] MEDS: CMCS: Dabigatran CAP(NF) 75 MG CAP PO SCH (09:32)
[2016-08-14] MEDS: Docusate CAP* 100 MG PO SCH (09:33)
[2016-08-14] MEDS: Dofetilide CAP* 250 MCG PO SCH (09:33)
[2016-08-14] MEDS: HydroxyUREA CAP* 500 MG CAP PO SCH (09:33)
[2016-08-14] MEDS: Citalopram TAB* 10 MG PO SCH (09:33)
[2016-08-14] MEDS: Ciprofloxacin TAB* 500 MG PO SCH (09:33)
[2016-08-14] MEDS: Lidocaine PATCH 5%* 1 PATCH TRANSDERM SCH (09:34)
[2016-08-14 10:14] VITALS: BP 113/74
--- NOTE | 2016-08-14 12:23 | DS ---
CC: Dr. Sim * DATE OF ADMISSION: 08/10/2016. DATE OF DISCHARGE: 08/14/2016. PRIMARY CARE PHYSICIAN: Dr. Sim. PRIMARY DIAGNOSES: 1. T7 traumatic vertebral fracture. 2. Pain. SECONDARY DIAGNOSES: 1. Atrial fibrillation. 2. Depression. 3. Hypothyroidism. 4. Osteoporosis. 5. Polycythemia vera. 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 MEDICATIONS ON DISCHARGE: 1. Oxycodone 2.5 mg twice daily as needed for pain. 2. Clonazepam 0.25 mg at bedtime as needed. 3. Vitamin D 225 mg monthly. 4. Prilosec 20 mg in the morning. 5. Metoprolol Succinate 50 mg in the morning. 6. Levothyroxine 125 mcg daily. 7. Hydroxyurea 500 mg daily. 8. Lexapro 5 mg daily. 9. Tikosyn 250 mcg twice daily. 10. Pradaxa 75 mg twice daily. 11. Aspirin 81 mg daily. 12. Senna two tabs at bedtime. 13. Lidocaine patch 5 percent applied at the sternum, remove and change every 72 hours. 14. Docusate 100 mg twice daily. 15. Bengay topical cream apply to affected area, currently left back, daily as needed for pain. 16. Tylenol 650 mg every 4 hours as needed for pain. PERTINENT MICROBIOLOGY: ESBL urine positive for ESBL E. coli resistant to Ampicillin, Aztreonam, Cefazolin, Cefepime, and Ceftriaxone. HISTORY OF PRESENT ILLNESS AND HOSPITAL COURSE: This is an 85-year-old female with a past medical history as outlined in the history or present illness on the day of admission, who fell in the bathroom, struck her sternum, developed severe pain. She was seen in the emergency room, had difficulty performing activities of daily living and instrumental activities of daily living secondary to her pain. She was admitted to the hospital secondary to the patient as well as a new T7 compression fracture. The patient in her chest was thought secondary to direct trauma as well as potentially neuropathic referred pain secondary to the T7 fracture. She was treated with Hydrocodone with Tylenol with good improvement and was seen by Physical Therapy. She was deemed to be a good candidate for subacute rehab given her stated ability and especially in the setting of the pain. During her hospital stay, a urinalysis was checked on presentation which grew back ESBL E. coli as noted above. The patient denied any urinary symptoms on presentation and throughout the course of the hospital stay. She was treated to Ceftriaxone and switched to Ciprofloxacin; however, I suspect she is being treated for urinary colonization and not a urinary tract infection. Her white blood cell count was 11.3 on presentation and 9.1 on 08/13/2016. AT FOLLOW-UP, PLEASE: 1. Evaluate for any urinary tract symptoms. Can consider treatment for ESBL E. coli if she develops symptoms. 2. No other specific labs or vitals that need follow-up. REASONS TO RETURN TO THE HOSPITAL: Including, but not limited to current or worsening symptoms, including chest pain, shortness of breath, nausea, vomiting , lightheadedness, loss of consciousness or near loss of consciousness, bleeding from any source, inability to obtain or tolerate medications were discussed with the patient and her daughter, they acknowledged understanding. Greater than 60 minutes were spent on the discharge of this patient, greater than half was spent [id number] with the patient. [id number]/[facility] #: [id number] DOLLY
== END 2016-08-14 13:10 | DRG 552 ==
LOC: MED 15:50 → OBSVTOIN 08-11 15:50
PROVIDERS: ADMIT Internal Medicine; ATTEND Internal Medicine
DX: S22.068A Other fracture of T7-T8 thoracic vertebra, initial encounter for closed fracture (principal); I48.91 Unspecified atrial fibrillation; D45 Polycythemia vera; N39.0 Urinary tract infection, site not specified; F32.9 Major depressive disorder, single episode, unspecified; S20.219A Contusion of unspecified front wall of thorax, initial encounter; E03.9 Hypothyroidism, unspecified; M81.0 Age-related osteoporosis without current pathological fracture; G43.909 Migraine, unspecified, not intractable, without status migrainosus; W18.30XA Fall on same level, unspecified, initial encounter; Y92.002 Bathroom of unspecified non-institutional (private) residence as the place of occurrence of the external cause; B96.20 Unspecified Escherichia coli [E. coli] as the cause of diseases classified elsewhere; Z16.11 Resistance to penicillins; Z95.0 Presence of cardiac pacemaker; Z79.82 Long term (current) use of aspirin; Z79.891 Long term (current) use of opiate analgesic; Z79.899 Other long term (current) drug therapy; Z88.2 Allergy status to sulfonamides; Z91.030 Bee allergy status; Z91.041 Radiographic dye allergy status; Z82.3 Family history of stroke; Z83.3 Family history of diabetes mellitus; Z80.3 Family history of malignant neoplasm of breast; Z82.5 Family history of asthma and other chronic lower respiratory diseases; Z87.891 Personal history of nicotine dependence
CPT/HCPCS: 36415; 70450; 71250; 72125; 80048; 80053; 81003; 81015; 83605; 83735; 83880; 84132; 84484; 85025; 85610; 85730; 86140; 87077; 87086; 87186; 93005; 94760; A9270-GY; G0378; J0696; J2270; J2405

== ENCOUNTER 2016-12-16 21:56 | Emergency (ER) | payer MEDICARE, OTHER ==
--- NOTE | 2016-12-17 00:06 | ED ---
Lucy Nuñez Emily, scribed for Lawrence Moratayauel on 12/16/16 at 2256 . Head Injury - HPI Summary HPI Summary: This patient is an 86 year old F presenting to [facility] accompanied by family with a chief complaint of head injury that occurred earlier today. Pt tripped and fell. Pt reports hitting her forehead upon falling. The patient rates the pain 4 /10 in severity. Symptoms aggravated by nothing. Symptoms alleviated by nothing. Patient reports pain in head and pain in upper mid back. Patient denies LOC. - History Of Current Complaint Chief Complaint: EDHeadInjury Stated Complaint: FALL/POSS HEAD INJURY Time Seen by Provider: 12/16/16 22:39 Hx Obtained From: Patient Mechanism Of Injury: Fall From A Standing Position Severity Currently: Mild Severity Initially: Mild Pain Intensity: 4 Pain Scale Used: 0-10 Numeric Associated Signs And Symptoms: Other: - Positive pain in head and pain in upper mid back. Negative LOC. - Allergies/Home Medications Allergies/Adverse Reactions: Allergies Allergy/AdvReac Type Severity Reaction Status Date / Time Bee Venom Allergy Anaphylatic Verified 12/16/16 22:43 Shock Sulfa Antibiotics Allergy Rash Verified 12/16/16 22:43 IODINE/IVP DYE Allergy Hives Uncoded 12/16/16 22:43 THALLIUM Allergy Hives Uncoded 12/16/16 22:43 PMH/Surg Hx/FS Hx/Imm Hx Previously Healthy: No Endocrine/Hematology History: Reports: Hx Thyroid Disease - hypothyroid, controlled with medication Denies: Hx Blood Disorders, Hx Blood Transfusions, Hx Bone Marrow Disease, Hx Diabetes, Hx Systemic Lupus Erythematosus, Hx Sickle Cell Disease, Hx Anemia , Hx Unexplained Bleeding, Other Endocrine/Hematological Disorders Cardiovascular History: Reports: Hx Hypercholesterolemia, Hx Hypertension - controlled with medication, Hx Pacemaker/ICD - 9/14/15, Other Cardiovascular Problems/Disorders - hx A-fib Denies: Hx Aneurysm, Hx Angina, Hx Angioplasty, Hx Auto Implanted Cardiovert Defib, Hx Cardiac Arrest, Hx Cardiomegaly, Hx Congenital Heart Disease, Hx Congestive Heart Failure, Hx Coronary Artery Disease, Hx Deep Vein Thrombosis, Hx Embolism, Hx Hypotension, Hx Peripheral Vascular Disease, Hx Rheumatic Fever , Hx Syncope, Hx Valvular Heart Disease Respiratory History: Denies: Hx Asthma, Hx Chronic Bronchitis, Hx Chronic Obstructive Pulmonary Disease (COPD), Hx Cystic Fibrosis, Hx Lung Cancer, Hx Pleural Effusion, Hx Pneumonia, Hx Pulmonary Edema, Hx Pulmonary Embolism, Hx Seasonal Allergies, Hx Sleep Apnea, Other Respiratory Problems/Disorders GI History: Reports: Hx Diverticulosis, Hx Irritable Bowel - controlled with diet and medication, Other GI Disorders - 4 duodenal ulcers, controlled with medication Denies: Hx Cirrhosis, Hx Crohn's Disease, Hx Gall Bladder Disease, Hx Gastroesophageal Reflux Disease, Hx Gastrointestinal Bleed, Hx Jaundice, Hx Obstructive Bowel, Hx Ileostomy, Hx Pyloric Stenosis, Hx Ulcer History: Denies: Hx Acute Renal Failure, Hx Benign Prostatic Hyperplasia, Hx Chronic Renal Failure, Hx Dialysis, Hx Kidney Infection, Hx Kidney Stones, Other Problems/Disorders Musculoskeletal History: Reports: Hx Arthritis, Hx Back Problems, Hx Orthopedic Injury - compression fx lower back, Hx Osteoporosis Denies: Hx Bursitis, Hx Congenital Bone Abnormalities, Hx Fibromyalgia, Hx Gout, Hx Scoliosis, Hx Tendonitis, Other Musculoskeletal History Sensory History: Reports: Hx Cataracts - bi-lat surgery approx 5 yrs ago, Hx Contacts or Glasses - reading glasses, Hx Hearing Aid Denies: Hx Eye Injury, Hx Eye Prosthesis, Hx Glaucoma, Hx Legally Blind, Hx Macular Degeneration, Hx Vision Problem, Hx Deafness, Hx Hearing Problem, Other Sensory Impairments Opthamlomology History: Reports: Hx Cataracts - bi-lat surgery approx 5 yrs ago , Hx Contacts or Glasses - reading glasses Denies: Hx Eye Injury, Hx Eye Prosthesis, Hx Glaucoma, Hx Legally Blind, Hx Macular Degeneration, Hx Vision Problem, Other Sensory Impairments Neurological History: Reports: Hx Headaches, Hx Migraine - last migraine, over 5 yrs ago Denies: Hx Dementia, Hx Developmental Delay, Hx Nerve Disease, Hx Seizures, Hx Spinal Cord Injury, Hx Transient Ischemic Attacks (TIA), Other Neuro Impairments/Disorders Psychiatric History: Reports: Hx Anxiety - controlled with medication, Hx Depression - controlled with medication Denies: Hx Attention Deficit Hyperactivity Disorder, Hx Eating Disorder, Hx Panic Disorder, Hx Post Traumatic Stress Disorder, Hx Inpatient Treatment, Hx Community Mental Health Tx, Hx Schizophrenia, Hx Bipolar Disorder, Hx Suicide Attempt, Hx of Violent Episodes Against Others, Hx Substance Abuse, Other Psychiatric Issues/Disorders - Cancer History Hx Chemotherapy: No Hx Radiation Therapy: No Hx Palliative Cancer Treatment: No - Surgical History Surgery Procedure, Year, and Place: HYSTERECTOMY 1987. cataract removal bi-lat 2011? Hx Anesthesia Reactions: No - Immunization History Date of Tetanus Vaccine: unk Date of Influenza Vaccine: unk Infectious Disease History: Reports: Hx Shingles Denies: Hx Clostridium Difficile, Hx Hepatitis, Hx Human Immunodeficiency Virus (HIV), Hx of Known/Suspected MRSA, Hx Tuberculosis, Hx Known/Suspected VRE , Hx Known/Suspected VRSA, History Other Infectious Disease, Traveled Outside the [place] in Last 30 Days - Family History Known Family History: Positive: Cardiac Disease, Diabetes, Other - Positive Breast CA Family History: FHx of Breast CA - Social History Occupation: Retired Lives: With Family Alcohol Use: None Hx Substance Use: No Substance Use Type: Reports: None, Prescribed, Other Substance Use Comment - Amount & Last Used: prescription narcotics Hx Tobacco Use: Yes Smoking Status (MU): Former Smoker Amount Used/How Often: smoked 1 ppd for approx 12 years Have You Smoked in the Last Year: No Review of Systems Positive: Other - Positive head injury, pain in head, and pain in upper mid back Neurological: Other - Negative LOC All Other Systems Reviewed And Are Negative: Yes Physical Exam Triage Information Reviewed: Yes Vital Signs On Initial Exam: Initial Vitals Temp Pulse Resp BP Pulse Ox 96.7 F 72 16 116/63 96 12/16/16 22:05 12/16/16 22:05 12/16/16 22:05 12/16/16 22:05 12/16/16 22:05 Vital Signs Reviewed: Yes Appearance: Positive: Well-Appearing, No Pain Distress Skin: Positive: Warm, Skin Color Reflects Adequate Perfusion, Dry Head/Face: Positive: Normal Head/Face Inspection Eyes: Positive: EOMI, MELBA ENT: Positive: Normal ENT inspection Neck: Positive: Supple, Nontender Respiratory/Lung Sounds: Positive: Clear to Auscultation, Breath Sounds Present Cardiovascular: Positive: RRR, Pulses are Symmetrical in both Upper and Lower Extremities Abdomen Description: Positive: Nontender, Soft Bowel Sounds: Positive: Present Musculoskeletal: Positive: Normal, Strength/ROM Intact Neurological: Positive: Normal, Sensory/Motor Intact, Alert, Oriented to Person Place, Time - [place] Coma Scale Coma Scale Total: 15 Diagnostics - Vital Signs Vital Signs Temp Pulse Resp BP Pulse Ox 12/16/16 22:05 96.7 F 72 16 116/63 96 - Laboratory Lab Statement: Any lab studies that have been ordered have been reviewed, and results considered in the medical decision making process. - Radiology CXR Radiology Interpretation Completed By: ED Physician - CXR read by ED physician reveals no acute changes. - CT Neck CT Interpretation Completed By: Radiologist - A neck CT read by radiologist reveals mild degenerative changes with no fracture. ED physician has reviewed this radiology report and agrees Head CT Interpretation Completed By: Radiologist - A head CT read by radiologist reveals normal head. ED physician has reviewed this radiology report and agrees Head Injury Course/Dx Assessment/Plan: This patient is an 86 year old F presenting to [facility] accompanied by family with a chief complaint of head injury that occurred earlier today. Pt tripped and fell. Pt reports hitting her forehead upon falling. The patient rates the pain 4/10 in severity. Symptoms aggravated by nothing. Symptoms alleviated by nothing. Patient reports pain in head and pain in upper mid back. Patient denies LOC. Physical Exam Findings. Negative. Medical Decision Making. A neck CT read by radiologist reveals mild degenerative changes with no fracture. A head CT read by radiologist reveals normal head. CXR read by ED physician reveals no acute changes. Patient will be discharged with follow up from PCP. The patient is agreeable with this plan. - Diagnoses Differential Diagnosis/HQI/PQRI: Cerebral Contusion, Concussion With LOC, Hematoma, Intracranial Bleed Provider Diagnoses: Head injury Discharge - Discharge Plan Condition: Stable Disposition: HOME Patient Education Materials: Head Injury (ED) Referrals: Cassie Sim MD [Primary Care Provider] - 3 Days Additional Instructions: RETURN TO THE EMERGENCY DEPARTMENT FOR NEW OR WORSENING SYMPTOMS. The documentation as recorded by the Lucy goodman Emily accurately reflects the service I personally performed and the decisions made by , Dany Morataya.
[2016-12-17 00:20] VITALS: BP 120/77
--- NOTE | 2016-12-17 07:45 | RAD ---
HISTORY: Head injury, anticoagulation COMPARISONS: August 08, 2016 TECHNIQUE: Multiple contiguous axial CT scans were obtained of the head without intravenous contrast. FINDINGS: HEMORRHAGE/INFARCT: There is no hemorrhage or acute infarct. MASSES/SHIFT: There is no mass or shift. EXTRA-AXIAL SPACES: There are no extra-axial fluid collections. SULCI AND VENTRICLES: The sulci and ventricles are normal in size and position for the patient's stated age. CEREBRUM: There is hypoattenuation of the periventricular and subcortical white matter. BRAINSTEM: There are no focal parenchymal abnormalities. CEREBELLUM: There are no focal parenchymal abnormalities. VESSELS: The vessels are grossly normal. PARANASAL SINUSES: The paranasal sinuses are clear. ORBITS: The orbits are unremarkable. BONES AND SOFT TISSUE: No bone or soft tissue abnormalities are noted. OTHER: None IMPRESSION: NO ACUTE INTRACRANIAL PATHOLOGY. CHRONIC SMALL VESSEL ISCHEMIC CHANGES
--- NOTE | 2016-12-17 07:48 | RAD ---
HISTORY: Fall, pain, head injury COMPARISONS: August 08, 2016 TECHNIQUE: Multiple contiguous axial CT scans were obtained of the cervical spine without intravenous contrast, with coronal and sagittal multiplanar reformations. FINDINGS: BRAIN: The visualized brain is unremarkable CENTRAL CANAL: Evaluation of the central canal is limited on CT technique; however, there is no obvious canalicular mass or epidural hemorrhage. ALIGNMENT: The alignment is normal, without subluxation or dislocation. VERTEBRAL BODIES: There is diffuse osteopenia. There is no displaced fracture. There is anterolateral marginal osteophyte formation most pronounced at C5-C6. JOINTS: There is diffuse uncovertebral and facet osteoarthritis MUSCULATURE: Unremarkable INTERVERTEBRAL DISCS: There is diffuse loss of intervertebral disc height. AXIAL IMAGES: C2-C3: There is no osseous neural foraminal narrowing or central canal stenosis. C3-C4: There is no osseous neural foraminal narrowing or central canal stenosis. C4-C5: There is no osseous neural foraminal narrowing or central canal stenosis. C5-C6: There is moderate bilateral neural foraminal narrowing. There is no osseous central canal stenosis. C6-C7: There is no osseous neural foraminal narrowing or central canal stenosis. C7-T1: There is no osseous neural foraminal narrowing or central canal stenosis. SOFT TISSUES: The visualized soft tissues of the neck are unremarkable. The prevertebral fat stripe is preserved. There is a calcified granuloma of the right upper lobe. The thyroid gland is atrophic OTHER: None. IMPRESSION: 1. OSTEOPENIA. 2. DEGENERATIVE DISC DISEASE AND OSTEOARTHRITIS. 3. NO ACUTE OSSEOUS INJURY TO THE CERVICAL SPINE.
--- NOTE | 2016-12-17 07:50 | RAD ---
HISTORY: Fall, pain, upper back pain COMPARISONS: July 08, 2016, CT of the chest dated August 09, 2016 VIEWS: 4: Frontal dual-energy and lateral views of the chest. FINDINGS: CARDIOMEDIASTINAL SILHOUETTE: The aorta is tortuous. The cardiomediastinal silhouette is otherwise unremarkable. VANIA: The vania are normal. PLEURA: The costophrenic angles are sharp. No pleural abnormalities are noted. LUNG PARENCHYMA: The lungs are clear. ABDOMEN: The upper abdomen is clear. There is no subphrenic gas. BONES AND SOFT TISSUES: There is diffuse osteopenia. There is a stable chronic appearing compression deformity of the midthoracic spine. OTHER: A left-sided pacemaker is noted IMPRESSION: NO ACTIVE CARDIOPULMONARY DISEASE. STABLE COMPRESSION DEFORMITY OF THE MIDTHORACIC SPINE.
== END 2016-12-17 00:21 | disposition home or self-care (01) ==
LOC: ED 21:56
DX: S09.90XA Unspecified injury of head, initial encounter (principal); Z87.891 Personal history of nicotine dependence; I10 Essential (primary) hypertension; E78.00 Pure hypercholesterolemia, unspecified; I48.91 Unspecified atrial fibrillation; Z95.810 Presence of automatic (implantable) cardiac defibrillator; I25.10 Atherosclerotic heart disease of native coronary artery without angina pectoris; W18.09XA Striking against other object with subsequent fall, initial encounter; Y92.9 Unspecified place or not applicable; Z88.2 Allergy status to sulfonamides; E03.9 Hypothyroidism, unspecified
CPT/HCPCS: 70450; 71020; 72125; 99282

== ENCOUNTER 2017-01-19 14:55 | Emergency (ER) | payer MEDICARE, OTHER ==
[2017-01-19] MEDS ORDERED: oxyCODONE/Acetamin 5/325 MG* TAB PO ONE (16:37)
--- NOTE | 2017-01-19 22:05 | ED ---
Jose Nuñez Gabriel, scribed for Darrick Travis MD on 01/19/17 at 1631 . Adult Trauma - HPI Summary HPI Summary: This patient is a 86 year old F [facility] 10 days prior. The patient rates the pain 8/10 in severity. Symptoms aggravated by movement, breathing, and coughing. Symptoms alleviated by Tylenol (slightly). Patient reports lower back pain that radiates in to her shoulder. Patient denies urinary and bm problems. She states the pain started to go away but 3 days ago it started getting worse recently. - History of Current Complaint Chief Complaint: EDBackInjuryPain Stated Complaint: FALL,BACK PAIN Time Seen by Provider: 01/19/17 16:22 Hx Obtained From: Patient Mechanism of Injury: Fall Onset/Duration: Started Days Ago - 10, Still Present Onset of Pain: Days - 3 ago Pain Intensity: 8 Pain Scale Used: 0-10 Numeric Location: Back Aggravating Factor(s): Movement, Deep Breaths Alleviating Factor(s): OTC Meds Associated Signs & Symptoms: Positive: Negative - bm and urinary symptoms - Additional Pertinent History Primary Care Physician: LIONEL - Allergy/Home Medications Allergies/Adverse Reactions: Allergies Allergy/AdvReac Type Severity Reaction Status Date / Time Bee Venom Allergy Anaphylatic Verified 12/16/16 22:43 Shock Sulfa Antibiotics Allergy Rash Verified 12/16/16 22:43 IODINE/IVP DYE Allergy Hives Uncoded 12/16/16 22:43 THALLIUM Allergy Hives Uncoded 12/16/16 22:43 PMH/Surg Hx/FS Hx/Imm Hx Previously Healthy: No Endocrine/Hematology History: Reports: Hx Thyroid Disease - hypothyroid, controlled with medication Denies: Hx Blood Disorders, Hx Blood Transfusions, Hx Bone Marrow Disease, Hx Diabetes, Hx Systemic Lupus Erythematosus, Hx Sickle Cell Disease, Hx Anemia , Hx Unexplained Bleeding, Other Endocrine/Hematological Disorders Cardiovascular History: Reports: Hx Hypercholesterolemia, Hx Hypertension - controlled with medication, Hx Pacemaker/ICD - 9/14/15, Other Cardiovascular Problems/Disorders - hx A-fib Denies: Hx Aneurysm, Hx Angina, Hx Angioplasty, Hx Auto Implanted Cardiovert Defib, Hx Cardiac Arrest, Hx Cardiomegaly, Hx Congenital Heart Disease, Hx Congestive Heart Failure, Hx Coronary Artery Disease, Hx Deep Vein Thrombosis, Hx Embolism, Hx Hypotension, Hx Peripheral Vascular Disease, Hx Rheumatic Fever , Hx Syncope, Hx Valvular Heart Disease Respiratory History: Denies: Hx Asthma, Hx Chronic Bronchitis, Hx Chronic Obstructive Pulmonary Disease (COPD), Hx Cystic Fibrosis, Hx Lung Cancer, Hx Pleural Effusion, Hx Pneumonia, Hx Pulmonary Edema, Hx Pulmonary Embolism, Hx Seasonal Allergies, Hx Sleep Apnea, Other Respiratory Problems/Disorders GI History: Reports: Hx Diverticulosis, Hx Irritable Bowel - controlled with diet and medication, Other GI Disorders - 4 duodenal ulcers, controlled with medication Denies: Hx Cirrhosis, Hx Crohn's Disease, Hx Gall Bladder Disease, Hx Gastroesophageal Reflux Disease, Hx Gastrointestinal Bleed, Hx Jaundice, Hx Obstructive Bowel, Hx Ileostomy, Hx Pyloric Stenosis, Hx Ulcer History: Denies: Hx Acute Renal Failure, Hx Benign Prostatic Hyperplasia, Hx Chronic Renal Failure, Hx Dialysis, Hx Kidney Infection, Hx Kidney Stones, Other Problems/Disorders Musculoskeletal History: Reports: Hx Arthritis, Hx Back Problems, Hx Orthopedic Injury - compression fx lower back, Hx Osteoporosis Denies: Hx Bursitis, Hx Congenital Bone Abnormalities, Hx Fibromyalgia, Hx Gout, Hx Scoliosis, Hx Tendonitis, Other Musculoskeletal History Sensory History: Reports: Hx Cataracts - bi-lat surgery approx 5 yrs ago, Hx Contacts or Glasses - reading glasses, Hx Hearing Aid Denies: Hx Eye Injury, Hx Eye Prosthesis, Hx Glaucoma, Hx Legally Blind, Hx Macular Degeneration, Hx Vision Problem, Hx Deafness, Hx Hearing Problem, Other Sensory Impairments Opthamlomology History: Reports: Hx Cataracts - bi-lat surgery approx 5 yrs ago , Hx Contacts or Glasses - reading glasses Denies: Hx Eye Injury, Hx Eye Prosthesis, Hx Glaucoma, Hx Legally Blind, Hx Macular Degeneration, Hx Vision Problem, Other Sensory Impairments Neurological History: Reports: Hx Headaches, Hx Migraine - last migraine, over 5 yrs ago Denies: Hx Dementia, Hx Developmental Delay, Hx Nerve Disease, Hx Seizures, Hx Spinal Cord Injury, Hx Transient Ischemic Attacks (TIA), Other Neuro Impairments/Disorders Psychiatric History: Reports: Hx Anxiety - controlled with medication, Hx Depression - controlled with medication Denies: Hx Attention Deficit Hyperactivity Disorder, Hx Eating Disorder, Hx Panic Disorder, Hx Post Traumatic Stress Disorder, Hx Inpatient Treatment, Hx Community Mental Health Tx, Hx Schizophrenia, Hx Bipolar Disorder, Hx Suicide Attempt, Hx of Violent Episodes Against Others, Hx Substance Abuse, Other Psychiatric Issues/Disorders - Cancer History Hx Chemotherapy: No Hx Radiation Therapy: No Hx Palliative Cancer Treatment: No - Surgical History Surgery Procedure, Year, and Place: HYSTERECTOMY 1987. cataract removal bi-lat 2011? Hx Anesthesia Reactions: No - Immunization History Date of Tetanus Vaccine: unk Date of Influenza Vaccine: unk Infectious Disease History: No Infectious Disease History: Reports: Hx Shingles Denies: Hx Clostridium Difficile, Hx Hepatitis, Hx Human Immunodeficiency Virus (HIV), Hx of Known/Suspected MRSA, Hx Tuberculosis, Hx Known/Suspected VRE , Hx Known/Suspected VRSA, History Other Infectious Disease, Traveled Outside the [place] in Last 30 Days - Family History Known Family History: Positive: Cardiac Disease, Diabetes, Other - Positive Breast CA Family History: FHx of Breast CA - Social History Alcohol Use: None Hx Substance Use: No Substance Use Type: Reports: None, Prescribed, Other Substance Use Comment - Amount & Last Used: prescription narcotics Hx Tobacco Use: Yes Smoking Status (MU): Former Smoker Amount Used/How Often: smoked 1 ppd for approx 12 years Have You Smoked in the Last Year: No Review of Systems Positive: Other - trauma Gastrointestinal: Negative - trouble with bm's Genitourinary: Negative - urinary symptoms Positive: Other - back pain All Other Systems Reviewed And Are Negative: Yes Physical Exam - Summary Physical Exam Summary: Appearance: The patient is well-nourished in no acute distress and in no acute pain. Skin: The skin is warm and dry and skin color reflects adequate perfusion. HEENT: ~The head is normocephalic and atraumatic. The pupils are equal and reactive. The conjunctivae are clear and without drainage. ~Nares are patent and without drainage. ~Mouth reveals moist mucous membranes and the throat is without erythema and exudate. ~The external ears are intact. The ear canals are patent and without drainage. The tympanic membranes are intact. Neck: the neck is supple with full range of motion and non-tender. There are no carotid bruits. ~There is no neck vein distension. Respiratory: Chest is non-tender. ~Lungs are clear to auscultation and breath sounds are symmetrical and equal. Cardiovascular: Heart is regular rate and rhythm. ~There is no murmur or rub auscultated. ~~There is no peripheral edema and pulses are symmetrical and equal. Abdomen: The abdomen is soft and non-tender. ~There are normal bowel sounds heard in all four quadrants and there is no organomegaly palpated. Musculoskeletal: Extremities are non-tender with full range of motion. ~There is good capillary refill. ~There is no peripheral edema or calf tenderness elicited. Tender in paradorsal area on the right Neurological: Patient is alert and oriented to person, place and time. ~The patient has symmetrical motor strength in all four extremities. ~Cranial nerves are grossly intact. Deep tendon reflexes are symmetrical and equal in all four extremities. Psychiatric: The patient has an appropriate affect and does not exhibit any anxiety or depression. Triage Information Reviewed: Yes Vital Signs On Initial Exam: Initial Vitals Temp Pulse Resp BP Pulse Ox 97.8 F 71 16 93/59 96 01/19/17 15:17 01/19/17 15:17 01/19/17 15:17 01/19/17 15:17 01/19/17 15:17 Vital Signs Reviewed: Yes - [place] Coma Scale Coma Scale Total: 15 Diagnostics - Vital Signs Vital Signs Temp Pulse Resp BP Pulse Ox 01/19/17 15:17 97.8 F 71 16 93/59 96 - Laboratory Lab Statement: Any lab studies that have been ordered have been reviewed, and results considered in the medical decision making process. Adult Trauma Course/Dx - Course Course Of Treatment: Ms. Gallardo feel several days ago and was W/U'd in the ED. Since then she has gotten upper back pain that hurts with any movement and is gradually worsening. She had no neurological signs or symptoms. I treated her symptomatically and recommended F/U. - Diagnoses Provider Diagnoses: Back strain Discharge - Discharge Plan Condition: Stable Disposition: HOME Prescriptions: HYDROcodone/ACETAMIN 5-325 MG* [[place] 5-325 TAB*] 1 tab PO Q6H PRN #20 tab MDD 4 PRN Reason: Pain Patient Education Materials: Hydrocodone/Acetaminophen (By mouth), Low Back Strain (ED) Referrals: Cassie Sim MD [Primary Care Provider] - 3 Days Additional Instructions: RETURN TO THE EMERGENCY DEPARTMENT FOR CHANGING OR WORSENING SYMPTOMS. The documentation as recorded by the Jose goodman Gabriel accurately reflects the service I personally performed and the decisions made by me, Darrick Travis MD.
[2017-01-20 00:54] VITALS: BP 102/62
== END 2017-01-19 21:00 | disposition home or self-care (01) ==
LOC: ED 14:55
DX: S39.012A Strain of muscle, fascia and tendon of lower back, initial encounter (principal); W19.XXXA Unspecified fall, initial encounter; Y93.9 Activity, unspecified; Y92.9 Unspecified place or not applicable
CPT/HCPCS: 99282; A9270-GY

== ENCOUNTER 2017-01-30 07:32 | Inpatient (IN) | payer MEDICARE, OTHER ==
[2017-01-30] MEDS ORDERED: NS 0.9% 1000 ML* 1,000 ML IV ONE (08:02)
--- NOTE | 2017-01-30 08:36 | RAD ---
INDICATION: Weakness. Fall. COMPARISON: December 08, 2016 TECHNIQUE: An AP portable view obtained at 0017 hours is submitted. FINDINGS: Bones/Soft Tissues: There are no acute bony findings. There is left-sided cardiac pacemaker Cardiomediastinal: The cardiomediastinal silhouette is unchanged. Lungs: There are interstitial changes most prominent in the right upper lobe.. This is more conspicuous and I reflect a developing infiltrate. Suggest follow-up. The remaining lung lira are essentially clear. Pleura: There are no pleural effusions. Other: None IMPRESSION: POSSIBLE DEVELOPING RIGHT UPPER LOBE INFILTRATE. SUGGEST FOLLOW-UP
--- NOTE | 2017-01-30 08:44 | RAD ---
INDICATION: Fall. Pain. COMPARISON: CT abdomen pelvis March 14, 2016 TECHNIQUE: Noncontrast axial source images were obtained from the hemidiaphragms to the symphysis pubis. This examination was ordered using a renal stone protocol which is performed without oral or intravenous contrast and therefore has inherent limitations when used to evaluate other intra-abdominal or intrapelvic pathology. Consider conventional contrast enhanced imaging if clinically indicated. Lung bases: The lung bases are clear. There are mild emphysematous changes. There is pacemaker artifact Liver: The liver is normal in size. Noncontrast imaging shows no evidence of a hepatic mass or ductal dilatation. Gallbladder: There are no calcified gallstones. There is no evidence of wall thickening or pericholecystic fluid.. Spleen: The spleen is enlarged measuring 15 cm in diagonal dimension. The noncontrast CT appearance is normal. Pancreas: Noncontrast imaging shows no pancreatic mass or ductal dilitation. Adrenal glands: No masses are identified. Kidneys/Bladder: There is no evidence of nephrolithiasis or CT evidence of hydronephrosis. Noncontrast imaging shows no a lower pole left renal cyst, unchanged. The bladder is unremarkable.. Adenopathy: There is no evidence of intraperitoneal or retroperitoneal adenopathy. Evaluation is limited without oral contrast. Fluid collections: There are no free or localized fluid collections. Vessels: The aorta and iliac vessels are normal in caliber. There are no significant atherosclerotic changes. The IVC appears normal Pelvic organs: There is hysterectomy. There is no adnexal mass GI tract: Evaluation of the bowel is limited without oral contrast. The stomach, small bowel, and lower GI tract appear grossly normal with the exception of scattered diverticula. There are no obstructive findings. The appendix is visualized and appears normal. Soft tissues: No soft tissue abnormalities of the extraperitoneal abdomen or pelvis are identified. Osseous structures: There is L1 kyphoplasty. There is a new T10 fracture as described in a separate report. There is no acute pelvic or hip fracture. IMPRESSION: NONCONTRAST IMAGING DEMONSTRATES NO CT EVIDENCE OF HEPATIC INJURY TO THE SOLID VISCERA OR FREE FLUID. OLD L1 COMPRESSION FRACTURE WITH INTERVAL KYPHOPLASTY. INTERVAL T10 COMPRESSION FRACTURE DESCRIBED IN A SEPARATE REPORT.
--- NOTE | 2017-01-30 08:44 | RAD ---
HISTORY: Lumbar pain status post fall COMPARISONS: May 07, 2016 TECHNIQUE: Multiple contiguous axial CT scans were obtained of the lumbar spine without intravenous contrast, with coronal and sagittal multiplanar reformations. FINDINGS: SPINAL CANAL: Evaluation of the central canal is limited on CT technique; however, there is no obvious canalicular mass or epidural hemorrhage. ALIGNMENT: The alignment is normal. VERTEBRAL BODIES: Again noted is compression deformity of L1. There has been interval percutaneous vertebral augmentation. There is diffuse osteopenia. There is no acute displaced fracture. JOINTS: There is facet osteoarthritic change along the lower lumbar spine MUSCULATURE: Unremarkable INTERVERTEBRAL DISCS: There is diffuse loss of intervertebral disc height throughout the spine. AXIAL IMAGES: T11-T12: There is no osseous neural foraminal area or central canal stenosis. T12-L1: There is no osseous neural foraminal narrowing or central canal stenosis. L1-L2: There is no osseous neural foraminal narrowing or central canal stenosis. L2-L3: There is mild disc bulge with ligamentous hypertrophy. There is mild narrowing of central canal. There is no significant neural foraminal narrowing. L3-L4: There is a broad-based disc bulge with ligamentous and facet hypertrophy. There is moderate narrowing of the central canal. There is mild bilateral neural foraminal narrowing. L4-L5: There is soft tissue density within the right lateral recess measuring approximately 0.7 cm in depth consistent with a right lateral recess disc protrusion. There is bilateral facet hypertrophy. There is no significant neural foraminal narrowing or central canal stenosis. L5-S1: There is bilateral facet hypertrophy. There is no significant neural foraminal narrowing or central canal stenosis. SOFT TISSUES: Renal cysts are noted OTHER: None IMPRESSION: 1. OSTEOPENIA. 2. DEGENERATIVE DISC DISEASE AND OSTEOARTHRITIS. 3. STATUS POST PERCUTANEOUS VERTEBRAL AUGMENTATION OF A COMPRESSION FRACTURE OF L1. 4. RIGHT-SIDED DISC PROTRUSION AT L4-L5. 5. THERE IS MODERATE NARROWING OF THE CENTRAL CANAL AT L3-L4 WITH MILD NARROWING AT L2-L3. 6. THERE IS NEURAL FORAMINAL NARROWING DESCRIBED ABOVE.
[2017-01-30] MEDS ORDERED: Acetaminophen TAB* 325 MG PO ONE (08:52)
[2017-01-30 09:02] LABS: Comments Flag Yes; Hematocrit 42 % (35-47); Hemoglobin 12.7 g/dl (12.0-16.0); Mean Corpuscular HGB Conc 31 g/dl (31-36); Mean Corpuscular Hemoglobin 23 pg (27-31); Mean Corpuscular Volume 76 fL (80-97); Mean Platelet Volume 7 um3 (7.4-10.4); Red Blood Count 5.45 10^6/ul (4.0-5.4); Red Cell Distribution Width 20 % (10.5-15); White Blood Count 11.9 10^3/ul (3.5-10.8)
[2017-01-30 09:03] LABS: Add Diff/Slide Review? Slide Review Added
[2017-01-30] MEDS ORDERED: cefTRIAXone(*) 1 GM in NS 0.9% 50 ML* 50 ML IVPB ONE (09:06)
[2017-01-30] MEDS ORDERED: Azithromycin IV(*) 500 MG in NS 0.9% 250 ML* 250 ML IVPB ONE (09:06)
[2017-01-30 09:13] LABS: Albumin 4.1 g/dL (3.2-5.2); BUN/Creatinine Ratio 39.7 (8-20); C Reactive Protein 45.1 mg/L (< 5.00); Calcium 9.8 mg/dL (8.6-10.3); EGFR African American 115.5 (>60); EGFR Non-African American 89.8 (>60); Globulin 3.3 g/dL (2-4); Potassium 4.4 mmol/L (3.5-5.0); Total Bilirubin 0.5 mg/dL (0.2-1.0); Total Protein 7.4 g/dL (6.4-8.9)
[2017-01-30 09:14] LABS: Troponin I 0.01 ng/mL (<0.04)
[2017-01-30 09:37] LABS: TSH (Thyroid Stimulating Horm) 1.77 mcIU/mL (0.34-5.60)
[2017-01-30 12:50] LABS: Urine Bacteria 3+ (Absent); Urine Bilirubin Negative (Negative); Urine Glucose Negative (Negative); Urine Nitrite Positive (Negative)
[2017-01-30] MEDS ORDERED: CAMPHOR TOPICAL PRN (13:39)
[2017-01-30] MEDS ORDERED: [UNRECOGNIZED DRUG - OTHER] TOPICAL PRN (13:39)
[2017-01-30] MEDS ORDERED: METHYL SALICYLATE TOPICAL PRN (13:39)
[2017-01-30] MEDS ORDERED: MENTHOL TOPICAL PRN (13:39)
[2017-01-30] MEDS ORDERED: Senna TAB PO PRN (13:39)
[2017-01-30] MEDS ORDERED: Polyethylene Glycol 3350* 17 GM PACKET PO PRN (13:39)
[2017-01-30] MEDS ORDERED: Dofetilide CAP* 250 MCG PO SCH (14:00)
[2017-01-30] MEDS: NS 0.9% 1000 ML* 1,000 ML IV SCH (14:31)
[2017-01-30] MEDS: Acetaminophen TAB* 325 MG PO SCH ×2 (14:31→21:30)
--- NOTE | 2017-01-30 18:29 | HP ---
CC: Cassie Sim MD * HISTORY AND PHYSICAL: DATE OF ADMISSION: 01/30/17 PRIMARY CARE PROVIDER: Cassie Sim MD ATTENDING PHYSICIAN: Ashkan Wise MD * (dictated by Mary Trejo NP) CHIEF COMPLAINT: Fall at home resulting in low back and bilateral hip pain. HISTORY OF PRESENT ILLNESS: Ms. Gallardo is an 86-year-old female with past medical history significant for hypothyroidism, hypertension, hyperlipidemia, atrial fibrillation, anxiety, depression, polycythemia vera, IBS, arthritis, osteoporosis and vertebral fractures who presented to the emergency room after getting her foot caught in her walker and falling around 4 a.m. this morning. After the fall, the patient was complaining of low back and bilateral hip pain. She denies any fever, chills, chest pain, cough, nausea, vomiting. She reports generalized weakness, occasional shortness of breath. She reports diarrhea. She reports some lightheadedness and dizziness that she feels may be contributing to falls. She denies any urinary symptoms. She denies any loss of consciousness when she fell today or lightheaded or dizziness prior to her fall. The patient presented to the emergency room for further evaluation. While in the emergency room, the patient received Tylenol, normal saline. She had a chest x-ray showing a possible developing right upper lobe infiltrate. She had an abdomen and pelvis CT showing an old L1 compression fracture and an old T10 compression fracture. She had a lumbar spine CT showing osteopenia, degenerative disk disease, right-sided disk protrusion at L4-5, moderate narrowing of the central canal at L3-L4 with mild narrowing at L2-L3 and the neuroforaminal narrowing as described in the body of the report. The patient had labs remarkable for a mild leukocytosis of 11.9. She had a urinalysis showing dirty urine. She was started on ceftriaxone and azithromycin for the possible pneumonia. The hospitalists were asked to evaluate the patient for admission. PAST MEDICAL HISTORY: 1. Hypothyroidism. 2. Hyperlipidemia. 3. Hypertension. 4. Atrial fibrillation. 5. Anxiety. 6. Migraines. 7. Depression. 8. Polycythemia vera. 9. IBS. 10. Diverticulosis. 11. Arthritis. 12. Osteoporosis. PAST SURGICAL HISTORY: 1. Status post pacemaker ICD placement. 2. Status post bilateral cataract extractions. 3. Status post hysterectomy. 4. Status post L1 kyphoplasty. HOME MEDICATIONS: Include: 1. Acetaminophen 325 to 500 mg oral daily as needed for pain or fever. 2. Tramadol 25 mg oral 3 times daily as needed for pain. 3. Pradaxa 75 mg oral twice daily. 4. Metoprolol succinate 50 mg oral daily. 5. Hydroxyurea 500 mg oral daily. 6. Tikosyn 250 mcg oral every 12 hours. 7. Senna 1 to 2 tablets oral daily at bedtime as needed for constipation. 8. MiraLAX 17 g oral daily as needed for constipation. 9. Acetaminophen 1000 mg oral twice daily. 10. [place] 1 patch topical daily as needed for pain. 11. EpiPen 0.3 mg IM once as needed for allergy symptoms. 12. Vitamin D3, 50,000 units oral monthly. 13. Omeprazole 20 mg oral daily. 14. Levothyroxine 125 mcg oral daily. 15. Aspirin 81 mg oral every morning. 16. Lexapro 10 mg oral daily. ALLERGIES: BEES, SULFA, IODINE, THALLIUM. FAMILY HISTORY: The patient's mother had a history of CVA, diabetes mellitus, and breast cancer. The patient reports a maternal grandfather with a history of breast cancer also. SOCIAL HISTORY: The patient is a former smoker, she reports quitting 3 years ago. Prior to that, she was a 1 pack a day smoker for approximately 12 years. She denies alcohol or recreational drug use. The patient's son, Thomas Gallardo, will be her surrogate decision maker in the event she is unable to make decisions for herself. REVIEW OF SYSTEMS: I performed a 14-point review of systems. All the pertinent positives and negatives are mentioned in the history of present illness. The remaining review of systems are negative. PHYSICAL EXAMINATION GENERAL APPEARANCE: The patient is drowsy, pleasant, appears to be in no acute distress. VITAL SIGNS: Temperature 98.4, heart rate 93, respiratory rate 16, O2 sat 97% on 2 L, blood pressure 115/56. HEENT: Normocephalic, atraumatic. Pupils are equal and reactive to light. Extraocular movements are intact. RESPIRATORY: There is no accessory muscle use. Her lungs are clear but diminished to auscultation bilateral. CARDIOVASCULAR: Regular rate and rhythm. S1 and S2 are present. There are no murmurs, rubs, or gallops heard. ABDOMEN: Soft, nontender, nondistended. There are bowel sounds present x4. EXTREMITIES: There is trace bilateral lower extremity edema. DP and PT pulses are 2+ and symmetric. MUSCULOSKELETAL: There is no clubbing or cyanosis noted. The patient exhibits good strength in all extremities. The patient is able to lift both legs off the bed bilaterally. There is no tenderness to palpation down the patient's spine or on her back. She does have some tenderness at her bilateral pelvis. NEUROLOGICAL: The patient is alert and oriented x4. Cranial nerves II through XII are grossly intact. The patient has good dorsi and plantar flex, bilateral. Handgrips are equal. PSYCHOLOGICAL: The patient is calm and cooperative. SKIN: There are no rashes or abnormalities seen. DIAGNOSTIC STUDIES/LABORATORY DATA: Sodium 135, potassium 4.4, chloride 98, CO2 25, BUN 25, creatinine 0.63, glucose 118. White blood cell count 11.9, hemoglobin 12.7, hematocrit 42, and platelet count 357,000. CRP 45.10. Lactic acid 0.8. Urinalysis significant for ketones 1+, blood 2+, nitrites positive, leukocyte esterase trace, wbc's 3+, rbc's 3+, squamous epithelial cells present , bacteria 3+. Chest x-ray from today, radiologist impression, shows a possible developing right upper lobe infiltrate. Abdomen and pelvis CT from today. Radiologist's impression: Noncontrast imaging demonstrates no CT evidence of hepatic injury to the solid viscera or free fluid. Old L1 compression fracture with interval kyphoplasty. Interval T10 compression fracture described in a separate report. Lumbar, C-spine CT from today. Radiologist's impression: Osteopenia. Degenerative disk disease and osteoarthritis. Status post percutaneous vertebral augmentation of a compression fracture of L1. Right-sided disk protrusion at L4- L5. There is moderate narrowing of the central canal at L3- L4 with mild narrowing at L2-L3. There is neuroforaminal narrowing as described in the body of the report. IMPRESSION: Ms. Gallardo is an 86-year-old female with past medical history significant for hypothyroidism, hypertension, hyperlipidemia, atrial fibrillation, anxiety, depression, polycythemia vera, irritable bowel syndrome, arthritis, osteoporosis, and vertebral fractures who presented to the emergency room after falling at home. She will be admitted as an inpatient for urinary tract infection and pain. ASSESSMENT/PLAN: 1. Vertebral fracture. The patient has no new vertebral fracture. She has had a T10 fracture first documented in June 2016 that is stable. She has also had a kyphoplasty at her L1 compression fracture. We will get Physical Therapy to evaluate the patient's mobility. I suspect she fell due to her urinary tract infection. We will give her standing Tylenol for pain and tramadol as needed for severe pain. She continues to have a significant amount of pain. We will consider a neurosurgery consultation. 2. Urinary tract infection. The patient has mild leukocytosis and dirty appearing urine. We will continue her on ceftriaxone. 3. Atrial fibrillation. The patient's rate is controlled. She will be continued on her home metoprolol, Pradaxa, and Tikosyn. 4. Hypothyroidism. The patient will be continued on her home levothyroxine. She had a TSH today that was 1.77. 5. Gastroesophageal reflux disease. The patient will be continued on omeprazole. 6. Hypertension. The patient will be continued on metoprolol. 7. Depression. The patient will be continued on Lexapro. 8. Polycythemia vera. The patient will be continued on her hydroxyurea. 9. Fluids, electrolytes and nutrition. The patient will be on a regular diet. 10. Code status. Full code. 11. DVT prophylaxis. The patient is at high risk and will be continued on her home Pradaxa. 12. Disposition. Inpatient. I suspect the patient may need placement. We will have case management assist with possible placement. TIME SPENT: Time for this admission was approximately 60 minutes, half of that was spent with the patient discussing medications, past medical history and the events leading to her arrival today, and performing a physical examination. The case has been reviewed with the attending, Dr. Wise, who agrees with the plan of care. MARY BERMAN, ROMI [id number]/SIMEON #: [id number] DOLLY
--- NOTE | 2017-01-30 18:30 | ED ---
lCayton Nuñez Benjamin, scribed for Cornelio Blanco MD on 01/30/17 at 0807 . Lower Extremity - HPI Summary HPI Summary: 86yo female tripped and fell onto the floor landing on her buttock earlier today around 4am. Pt reports lower back and bilateral hip pain now. However, states that she had pre-existing hip and lower back pain. Pt says that she has been feeling weak lately. Reports recent cough. Denies any pain in upper extremities. - History of Current Complaint Chief Complaint: EDBackInjuryPain Stated Complaint: FALL Time Seen by Provider: 01/30/17 07:38 Hx Obtained From: Patient, Family/Computer Network Specialist - Mechanism Of Injury: Fall From A Standing Position Onset of Pain: Hours, Post Accident Onset/Duration: Still Present Severity Initially: Moderate Severity Currently: Moderate Pain Intensity: 10 Pain Scale Used: 0-10 Numeric Timing: Constant Location: Is Discrete @ - lower back and bilateral hips Character Of Pain: Aching Associated Signs And Symptoms: Positive: Weakness Aggravating Factor(s): Movement Alleviating Factor(s): Rest - Allergies/Home Medications Allergies/Adverse Reactions: Allergies Allergy/AdvReac Type Severity Reaction Status Date / Time Bee Venom Allergy Anaphylatic Verified 12/16/16 22:43 Shock Sulfa Antibiotics Allergy Rash Verified 12/16/16 22:43 IODINE/IVP DYE Allergy Hives Uncoded 12/16/16 22:43 THALLIUM Allergy Hives Uncoded 12/16/16 22:43 PMH/Surg Hx/FS Hx/Imm Hx Endocrine/Hematology History: Reports: Hx Thyroid Disease - hypothyroid, controlled with medication Denies: Hx Blood Disorders, Hx Blood Transfusions, Hx Bone Marrow Disease, Hx Diabetes, Hx Systemic Lupus Erythematosus, Hx Sickle Cell Disease, Hx Anemia , Hx Unexplained Bleeding, Other Endocrine/Hematological Disorders Cardiovascular History: Reports: Hx Hypercholesterolemia, Hx Hypertension - controlled with medication, Hx Pacemaker/ICD - 9/14/15, Other Cardiovascular Problems/Disorders - hx A-fib Denies: Hx Aneurysm, Hx Angina, Hx Angioplasty, Hx Auto Implanted Cardiovert Defib, Hx Cardiac Arrest, Hx Cardiomegaly, Hx Congenital Heart Disease, Hx Congestive Heart Failure, Hx Coronary Artery Disease, Hx Deep Vein Thrombosis, Hx Embolism, Hx Hypotension, Hx Peripheral Vascular Disease, Hx Rheumatic Fever , Hx Syncope, Hx Valvular Heart Disease Respiratory History: Denies: Hx Asthma, Hx Chronic Bronchitis, Hx Chronic Obstructive Pulmonary Disease (COPD), Hx Cystic Fibrosis, Hx Lung Cancer, Hx Pleural Effusion, Hx Pneumonia, Hx Pulmonary Edema, Hx Pulmonary Embolism, Hx Seasonal Allergies, Hx Sleep Apnea, Other Respiratory Problems/Disorders GI History: Reports: Hx Diverticulosis, Hx Irritable Bowel - controlled with diet and medication, Other GI Disorders - 4 duodenal ulcers, controlled with medication Denies: Hx Cirrhosis, Hx Crohn's Disease, Hx Gall Bladder Disease, Hx Gastroesophageal Reflux Disease, Hx Gastrointestinal Bleed, Hx Jaundice, Hx Obstructive Bowel, Hx Ileostomy, Hx Pyloric Stenosis, Hx Ulcer History: Denies: Hx Acute Renal Failure, Hx Benign Prostatic Hyperplasia, Hx Chronic Renal Failure, Hx Dialysis, Hx Kidney Infection, Hx Kidney Stones, Other Problems/Disorders Musculoskeletal History: Reports: Hx Arthritis, Hx Back Problems, Hx Orthopedic Injury - compression fx lower back, Hx Osteoporosis Denies: Hx Bursitis, Hx Congenital Bone Abnormalities, Hx Fibromyalgia, Hx Gout, Hx Scoliosis, Hx Tendonitis, Other Musculoskeletal History Sensory History: Reports: Hx Cataracts - bi-lat surgery approx 5 yrs ago, Hx Contacts or Glasses - reading glasses, Hx Hearing Aid Denies: Hx Eye Injury, Hx Eye Prosthesis, Hx Glaucoma, Hx Legally Blind, Hx Macular Degeneration, Hx Vision Problem, Hx Deafness, Hx Hearing Problem, Other Sensory Impairments Opthamlomology History: Reports: Hx Cataracts - bi-lat surgery approx 5 yrs ago , Hx Contacts or Glasses - reading glasses Denies: Hx Eye Injury, Hx Eye Prosthesis, Hx Glaucoma, Hx Legally Blind, Hx Macular Degeneration, Hx Vision Problem, Other Sensory Impairments Neurological History: Reports: Hx Headaches, Hx Migraine - last migraine, over 5 yrs ago Denies: Hx Dementia, Hx Developmental Delay, Hx Nerve Disease, Hx Seizures, Hx Spinal Cord Injury, Hx Transient Ischemic Attacks (TIA), Other Neuro Impairments/Disorders Psychiatric History: Reports: Hx Anxiety - controlled with medication, Hx Depression - controlled with medication Denies: Hx Attention Deficit Hyperactivity Disorder, Hx Eating Disorder, Hx Panic Disorder, Hx Post Traumatic Stress Disorder, Hx Inpatient Treatment, Hx Community Mental Health Tx, Hx Schizophrenia, Hx Bipolar Disorder, Hx Suicide Attempt, Hx of Violent Episodes Against Others, Hx Substance Abuse, Other Psychiatric Issues/Disorders - Cancer History Hx Chemotherapy: No Hx Radiation Therapy: No Hx Palliative Cancer Treatment: No - Surgical History Surgery Procedure, Year, and Place: HYSTERECTOMY 1987. cataract removal bi-lat 2011? Hx Anesthesia Reactions: No - Immunization History Date of Tetanus Vaccine: unk Date of Influenza Vaccine: unk Infectious Disease History: No Infectious Disease History: Reports: Hx Shingles Denies: Hx Clostridium Difficile, Hx Hepatitis, Hx Human Immunodeficiency Virus (HIV), Hx of Known/Suspected MRSA, Hx Tuberculosis, Hx Known/Suspected VRE , Hx Known/Suspected VRSA, History Other Infectious Disease, Traveled Outside the [place] in Last 30 Days - Family History Known Family History: Positive: Cardiac Disease, Diabetes, Other - Positive Breast CA Family History: FHx of Breast CA - Social History Alcohol Use: None Hx Substance Use: No Substance Use Type: Reports: Other Substance Use Comment - Amount & Last Used: Tylenon with codeine Hx Tobacco Use: Yes Smoking Status (MU): Former Smoker Amount Used/How Often: smoked 1 ppd for approx 12 years Have You Smoked in the Last Year: No Review of Systems Constitutional: Negative Negative: Fever Eyes: Negative ENT: Negative Cardiovascular: Negative Respiratory: Negative Gastrointestinal: Negative Genitourinary: Negative Positive: Arthralgia - hip and lower back pain Skin: Negative Positive: Weakness - generalized weakness Psychological: Normal All Other Systems Reviewed And Are Negative: Yes Physical Exam - Summary Physical Exam Summary: General: well-appearing, no pain distress Skin: warm, color reflects adequate perfusion, dry Head: normal Eyes: EOMI, MELBA ENT: dry oral mucosa. Neck: supple, nontender Respiratory: CTA, breath sounds present Cardiovascular: RRR Abdomen: soft, nontender Bowel: present Musculoskeletal: normal, strength/ROM intact. Able to move 4 extremities. Bilateral pelvis tender to palpation. Neurological: normal, sensory/motor intact, A&O x3 Psychological: affect/mood appropriate Triage Information Reviewed: Yes Vital Signs On Initial Exam: Initial Vitals Temp Pulse Resp BP Pulse Ox 97.7 F 84 16 122/65 94 01/30/17 07:36 01/30/17 07:36 01/30/17 07:36 01/30/17 07:36 01/30/17 07:36 Vital Signs Reviewed: Yes - Mick Coma Scale Coma Scale Total: 15 Diagnostics - Vital Signs Vital Signs Temp Pulse Resp BP Pulse Ox 01/30/17 07:44 88 94 01/30/17 07:43 111/67 01/30/17 07:36 97.7 F 84 16 122/65 94 - Laboratory Lab Results: Lab Results 01/30/17 01/30/17 01/30/17 Range/Units 08:41 08:41 08:41 WBC (3.5-10.8) 10^3/ul RBC (4.0-5.4) 10^6/ul Hgb (12.0-16.0) g/dl Hct (35-47) % MCV (80-97) fL MCH (27-31) pg MCHC (31-36) g/dl RDW (10.5-15) % Plt Count (150-450) 10^3/ul MPV (7.4-10.4) um3 Neut % (Auto) (38-83) % Lymph % (Auto) (25-47) % [place] % (Auto) (1-9) % Eos % (Auto) (0-6) % Baso % (Auto) (0-2) % Absolute Neuts (auto) (1.5-7.7) 10^3/ul Absolute Lymphs (auto) (1.0-4.8) 10^3/ul Absolute Monos (auto) (0-0.8) 10^3/ul Absolute Eos (auto) (0-0.6) 10^3/ul Absolute Basos (auto) (0-0.2) 10^3/ul Absolute Nucleated RBC 10^3/ul Nucleated RBC % INR (Anticoag Therapy) 1.28 H (0.77-1.02) APTT 50.3 H (26.0-36.3) seconds Sodium 135 (133-145) mmol/L Potassium 4.4 (3.5-5.0) mmol/L Chloride 98 L (101-111) mmol/L Carbon Dioxide 25 (22-32) mmol/L Anion Gap 12 H (2-11) mmol/L BUN 25 H (6-24) mg/dL Creatinine 0.63 (0.51-0.95) mg/dL Est GFR ( Amer) 115.5 (>60) Est GFR (Non-Af Amer) 89.8 (>60) BUN/Creatinine Ratio 39.7 H (8-20) Glucose 118 H (70-100) mg/dL Lactic Acid (0.5-2.0) mmol/L Calcium 9.8 (8.6-10.3) mg/dL Magnesium 2.0 (1.9-2.7) mg/dL Total Bilirubin 0.50 (0.2-1.0) mg/dL AST 20 (13-39) U/L ALT 7 (7-52) U/L Alkaline Phosphatase 61 (34-104) U/L Total Creatine Kinase 21 (10-223) U/L CK-MB (CK-2) 1.3 (0.6-6.3) ng/mL Troponin I 0.01 (<0.04) ng/mL C-Reactive Protein 45.10 H (< 5.00) mg/L B-Natriuretic Peptide 114 H ( - 100) pg/mL Total Protein 7.4 (6.4-8.9) g/dL Albumin 4.1 (3.2-5.2) g/dL Globulin 3.3 (2-4) g/dL Albumin/Globulin Ratio 1.2 (1-3) Lipase 10 L (11.0-82.0) U/L TSH 1.77 (0.34-5.60) mcIU/mL 01/30/17 01/30/17 Range/Units 08:41 08:41 WBC 11.9 H (3.5-10.8) 10^3/ul RBC 5.45 H (4.0-5.4) 10^6/ul Hgb 12.7 (12.0-16.0) g/dl Hct 42 (35-47) % MCV 76 L (80-97) fL MCH 23 L (27-31) pg MCHC 31 (31-36) g/dl RDW 20 H (10.5-15) % Plt Count 350 (150-450) 10^3/ul MPV 7 L (7.4-10.4) um3 Neut % (Auto) 89.8 H (38-83) % Lymph % (Auto) 3.8 L (25-47) % [place] % (Auto) 6.2 (1-9) % Eos % (Auto) 0 (0-6) % Baso % (Auto) 0.2 (0-2) % Absolute Neuts (auto) 10.7 H (1.5-7.7) 10^3/ul Absolute Lymphs (auto) 0.4 L (1.0-4.8) 10^3/ul Absolute Monos (auto) 0.7 (0-0.8) 10^3/ul Absolute Eos (auto) 0 (0-0.6) 10^3/ul Absolute Basos (auto) 0 (0-0.2) 10^3/ul Absolute Nucleated RBC 0 10^3/ul Nucleated RBC % 0 INR (Anticoag Therapy) (0.77-1.02) APTT (26.0-36.3) seconds Sodium (133-145) mmol/L Potassium (3.5-5.0) mmol/L Chloride (101-111) mmol/L Carbon Dioxide (22-32) mmol/L Anion Gap (2-11) mmol/L BUN (6-24) mg/dL Creatinine (0.51-0.95) mg/dL Est GFR ( Amer) (>60) Est GFR (Non-Af Amer) (>60) BUN/Creatinine Ratio (8-20) Glucose (70-100) mg/dL Lactic Acid 0.8 (0.5-2.0) mmol/L Calcium (8.6-10.3) mg/dL Magnesium (1.9-2.7) mg/dL Total Bilirubin (0.2-1.0) mg/dL AST (13-39) U/L ALT (7-52) U/L Alkaline Phosphatase (34-104) U/L Total Creatine Kinase (10-223) U/L CK-MB (CK-2) (0.6-6.3) ng/mL Troponin I (<0.04) ng/mL C-Reactive Protein (< 5.00) mg/L B-Natriuretic Peptide ( - 100) pg/mL Total Protein (6.4-8.9) g/dL Albumin (3.2-5.2) g/dL Globulin (2-4) g/dL Albumin/Globulin Ratio (1-3) Lipase (11.0-82.0) U/L TSH (0.34-5.60) mcIU/mL Result Diagrams: 01/30/17 08:41 01/30/17 08:41 Lab Statement: Any lab studies that have been ordered have been reviewed, and results considered in the medical decision making process. - Radiology CXR Xray Interpretation: Positive (See Comments) - IMPRESSION: POSSIBLE DEVELOPING RIGHT UPPER LOBE INFILTRATE. SUGGEST FOLLOW-UP Radiology Interpretation Completed By: Radiologist - ED physician has reviewed this radiology report and agrees. - CT CT A/P WO CT Interpretation: No Acute Changes - IMPRESSION: NONCONTRAST IMAGING DEMONSTRATES NO CT EVIDENCE OF HEPATIC INJURY TO THE SOLID VISCERA OR FREE FLUID. OLD L1 COMPRESSION FRACTURE WITH INTERVAL KYPHOPLASTY. INTERVAL T10 COMPRESSION FRACTURE DESCRIBED IN A SEPARATE REPORT. CT Interpretation Completed By: Radiologist - ED physician has reviewed this radiology report and agrees. L Spine CT CT Interpretation: No Acute Changes - IMPRESSION: 1. OSTEOPENIA. 2. DEGENERATIVE DISC DISEASE AND OSTEOARTHRITIS. 3. STATUS POST PERCUTANEOUS VERTEBRAL AUGMENTATION OF A COMPRESSION FRACTURE OF L1. 4. RIGHT-SIDED DISC PROTRUSION AT L4-L5. 5. THERE IS MODERATE NARROWING OF THE CENTRAL CANAL AT L3- L4 WITH MILD NARROWING AT L2-L3. 6. THERE IS NEURAL FORAMINAL NARROWING DESCRIBED ABOVE. CT Interpretation Completed By: Radiologist - ED physician has reviewed this radiology report and agrees. Lower Extremity Course/Dx - Course Course Of Treatment: BP noted and advised to follow up with PCP. Allergies noted. Medications reviewed. Spoke with Dr. Floyd (Hospitalist) at 0917 hour. ADMIT HOSPITALIST. CRITICAL CARE TIME LESS THAN 30 MINUTES. - Diagnoses Provider Diagnoses: Pneumonia, Weakness, Compression fracture of L1 lumbar vertebra, Back pain Discharge - Discharge Plan Condition: Stable Disposition: ADMITTED TO [facility] documentation as recorded by the Clayton goodman Benjamin accurately reflects the service I personally performed and the decisions made by me, Cornelio Blanco MD.
[2017-01-30] MEDS: CMCS Dabigatran CAP(NF) 75 MG CAP PO SCH (21:31)
[2017-01-30] MEDS: Dofetilide CAP* 250 MCG PO SCH (21:31)
[2017-01-31] MEDS: Acetaminophen TAB* 325 MG PO SCH ×4 (01:55→21:35)
[2017-01-31] MEDS: Levothyroxine TAB* 125 MCG TAB PO SCH (05:27)
[2017-01-31] MEDS: NS 0.9% 1000 ML* 1,000 ML IV SCH (05:27)
[2017-01-31 06:08] LABS: Hematocrit 34 % (35-47); Hemoglobin 10.3 g/dl (12.0-16.0); Mean Corpuscular HGB Conc 30 g/dl (31-36); Mean Corpuscular Hemoglobin 23 pg (27-31); Mean Corpuscular Volume 76 fL (80-97); Mean Platelet Volume 7 um3 (7.4-10.4); Red Blood Count 4.47 10^6/ul (4.0-5.4); Red Cell Distribution Width 20 % (10.5-15); White Blood Count 8.4 10^3/ul (3.5-10.8)
[2017-01-31 06:09] LABS: Add Diff/Slide Review? Slide Review Added; Comments Flag Yes
[2017-01-31 06:12] LABS: BUN/Creatinine Ratio 37.8 (8-20); EGFR Non-African American 132.4 (>60); Potassium 3.9 mmol/L (3.5-5.0)
[2017-01-31 06:13] LABS: Calcium 8.7 mg/dL (8.6-10.3); EGFR African American 170.3 (>60)
[2017-01-31] MEDS: Omeprazole CAP* 20 MG PO SCH (08:05)
[2017-01-31] MEDS: Citalopram TAB* 20 MG PO SCH (08:05)
[2017-01-31] MEDS: Aspirin EC Low Dose* 81 MG TAB.EC PO SCH (08:05)
[2017-01-31] MEDS: Metoprolol Succinate XL TAB* 50 MG PO SCH (08:06)
[2017-01-31] MEDS: HydroxyUREA CAP* 500 MG CAP PO SCH (08:06)
[2017-01-31] MEDS: Dofetilide CAP* 250 MCG PO SCH ×2 (08:07→21:34)
[2017-01-31] MEDS: CMCS Dabigatran CAP(NF) 75 MG CAP PO SCH ×2 (08:07→21:32)
[2017-01-31] MEDS ORDERED: cefTRIAXone(*) 1 GM in D5W 50 ML BAG* 50 ML IVPB SCH (09:00)
[2017-01-31] MEDS ORDERED: Analgesic BALM* 114 GM TOPICAL PRN (09:00)
[2017-01-31] MEDS: traMADol TAB* 50 MG PO PRN ×3 (09:18→21:33)
--- NOTE | 2017-01-31 10:30 | PN ---
Subjective Date of Service: 01/31/17 Interval History: Patient seen and examined at bedside. Patient denies pain at rest, but any movement causes significant pain. She had a huge bowel movement this morning and feels much better. She states Tramadol isn't completely relieving pain. She states she is unable to sit in a chair without significant discomfort. She denies any numbness, weakness, or urinary incontinence. Family History: Unchanged from Admission Social History: Unchanged from Admission Past Medical History: Unchanged from Admission Objective Active Medications: Acetaminophen (Tylenol Tab*) 975 mg PO Q6H RODERICK Aspirin (Aspirin Ec Low Dose*) 81 mg PO QAM RODERICK Citalopram Hydrobromide (Celexa Tab*) 20 mg PO DAILY RODERICK Dabigatran (Pradaxa Cap(Nf)) 75 mg PO BID RODERICK Dofetilide (Tikosyn Cap*) 250 mcg PO Q12HR RODERICK Hydroxyurea (Hydrea Cap*) 500 mg PO DAILY RODERICK Sodium Chloride (Ns 0.9% 1000 Ml*) 1,000 mls @ 75 mls/hr IV PER RATE RODERICK Ceftriaxone Sodium 1 gm/ (Dextrose) 50 mls @ 200 mls/hr IVPB Q24H RODERICK Levothyroxine Sodium (Synthroid Tab*) 125 mcg PO 0600 RODERICK Metoprolol Succinate (Toprol Xl Tab*) 50 mg PO DAILY RODERICK Multi-Ingredient Liniment/Rub (Gm Eby*) 1 applic TOPICAL DAILY PRN Omeprazole (Prilosec Cap*) 20 mg PO DAILY RODERICK Polyethylene Glycol/Electrolytes (Miralax*) 17 gm PO DAILY PRN Senna (Senokot Tab*) 1 tab PO BEDTIME PRN Tramadol HCl (Ultram*) 25 mg PO TID PRN Vital Signs Temp Pulse Resp BP Pulse Ox 98.0 F 86 20 115/60 98 01/31/17 07:25 01/31/17 07:25 01/31/17 09:18 01/31/17 07:25 01/31/17 07:34 Oxygen Devices in Use Now: None Appearance: sitting up in bed, NAD Eyes: No Scleral Icterus, PERRLA Ears/Nose/Mouth/Throat: NL Teeth, Lips, Gums Neck: NL Appearance and Movements; NL JVP Respiratory: Symmetrical Chest Expansion and Respiratory Effort, Clear to Auscultation Cardiovascular: NL Sounds; No Murmurs; No JVD, RRR Abdominal: NL Sounds; No Tenderness; No Distention Extremities: No Edema, - - pain when lifting L leg Skin: No Rash or Ulcers Neurological: Alert and Oriented x 3, NL Muscle Strength and Tone Lines/Tubes/Other Access: Clean, Dry and Intact Peripheral IV Result Diagrams: 01/31/17 05:30 01/31/17 05:30 Additional Lab and Data: . Assess/Plan/Problems-Billing Assessment: - Patient Problems (1) Compression fracture of thoracic vertebra Comment: Thoracic CT shows new T3, T4 and mild progression of T7. No new neurological symptoms except pain that is difficult to control. Neurosurgery consulted to review images. Continue standing Tylenol and PRN Tramadol. PT/ OT. (2) Urinary tract infection Comment: Continue ceftriaxone for now. She has had ESBL E. Coli in the past but will await culture results. (3) GERD (gastroesophageal reflux disease) Comment: Continue omeprazole. (4) HTN (hypertension) Comment: Controlled. Continue metoprolol. (5) Depression Comment: Continue Lexapro. (6) Atrial fibrillation Comment: Continue Tikosyn, Toprol and Pradaxa. (7) Hypothyroidism Comment: Continue Synthroid. (8) Polycythemia vera Comment: Continue hydroxyurea. Followed by Dr. Hall. (9) DVT prophylaxis Comment: Pradaxa (10) Full code status Status and Disposition: Inpatient. May need short term rehab at discharge.
[2017-01-31] MEDS ORDERED: Lidocaine PATCH 5%* 1 PATCH TRANSDERM PRN (21:55)
--- NOTE | 2017-02-01 03:17 | CONS ---
CONSULTATION NOTE: DATE OF CONSULT: 01/31/17 HISTORY OF PRESENT ILLNESS: The patient is a very pleasant 86-year-old female who was reported to have tripped and fell on the floor earlier this a.m. while she was trying to return from the bedside commode to her bed. The patient did not lose her consciousness, but she reports significant back pain. The patient was admitted to the hospitalist service and we were kindly consulted because of significant findings consistent with T3 and T4 mild compression fractures as well as mild compression of previous known T7 fracture. The patient has a history of previous known T10 fracture and L1 fracture and was treated by Dr. Brown with kyphoplasty. The patient denies any loss of consciousness. Denies any weakness, numbness, or tingling of extremities. She denies any urinary or GI incontinence. The patient lives with her . PAST MEDICAL HISTORY: 1. Hypothyroidism. 2. Hyperlipidemia. 3. Hypertension. 4. Atrial fibrillation. 5. Anxiety. 6. Migraines. 7. Depression. 8. Polycythemia vera. 9. IBS. 10. Diverticulosis. 11. Arthritis. 12. Osteoporosis. PAST SURGICAL HISTORY: 1. The patient continues to have a pacemaker. 2. Bilateral cataract surgery. 3. Status post hysterectomy. 4. L1 kyphoplasty. HOME MEDICATIONS: Include: 1. Acetaminophen. 2. Tramadol. 3. Pradaxa. 4. Metoprolol. 5. Hydroxyurea. 6. Tikosyn. 7. Senna. 8. MiraLAX. 9. [place]. 10. EpiPen. 11. Vitamin B3. 12. Omeprazole. 13. Levothyroxine. 14. Aspirin. 15. Lexapro. ALLERGIES: BEES, SULFA, IODINE, THALLIUM. FAMILY HISTORY: The patient's mother has a history of CVA, diabetes, and breast cancer. SOCIAL HISTORY: The patient is not a smoker, but used to smoke until 3 years ago. She denies alcohol or recreational use. Patient's son, Thomas Gallardo, will be her healthcare proxy. PHYSICAL EXAMINATION: The patient is not in acute distress. She is in her bed. She has mild tenderness to palpation of the upper thoracic spine. She has no tenderness to palpation of the cervical, lower thoracic, or lumbar spine. She has full range of motion of cervical spine. She is awake, alert, and oriented x3. Her pupils are equal and reactive. Cranial nerves II through XII are grossly intact. Motor 4 to 5/5 in lower extremities. Sensory grossly intact to light touch. Deep tendon reflexes +1 bilaterally. No clonus. No Babinski. Claros's negative. Straight leg test negative in the supine position. DIAGNOSTIC STUDIES: The patient had a CT scan of her lumbar spine on 01/30/17 revealing postoperative change with L1 kyphoplasty and evidence of degenerative disease without evidence of new fractures. CT scan of thoracic spine on revealing again the known L1 fracture with postoperative changes and known T10 fracture, mild progression of compression of previous known T7 fracture, and mild compression deformities at T3 and T4. No evidence of posterior elements involvement or evidence of canal compromise. ASSESSMENT: The patient is a very pleasant 86-year-old female with past medical history of hypothyroidism, hypertension, hyperlipidemia, atrial fibrillation, anxiety, depression, polycythemia vera, irritable bowel syndrome, arthritis, osteoporosis, L1 fracture treated with kyphoplasty and recent reported fall with new compression fractures at T3 and T4. PLAN: The patient at this point remains neurologically at her baseline. There is no significant evidence of kyphosis or canal compromise. Based on the patient's age and comorbidities, surgical intervention might be too risky. We think that conservative treatment will be her best approach at this time. The patient is treated for UTI that was diagnosed recently. We discussed the patient's imaging with the patient who is very lucid and she would not like to proceed with surgical intervention at this time. She understands that if her fractures develop progressive kyphosis or if she develops neurological symptoms , she may need to undergo a larger surgical procedure, which she may not be able to undergo due to her medical conditions. We recommend conservative treatment, consider a [place] hyperextension brace if the patient is able to tolerate, and fall precautions. Full instructions given to the patient. The patient seems to understand, is agreeable with the plan. Thank you for allowing us to participate in the care of this patient. Please do not hesitate to contact our office in case you have any further questions or concerns regarding the care of this patient. Peggy Mayers MD [id number]/[facility] #: [id number] DOLLY
[2017-02-01] MEDS: Acetaminophen TAB* 325 MG PO SCH ×4 (03:20→20:32)
[2017-02-01] MEDS: Levothyroxine TAB* 125 MCG TAB PO SCH (06:17)
[2017-02-01] MEDS: Omeprazole CAP* 20 MG PO SCH (08:30)
[2017-02-01] MEDS: Metoprolol Succinate XL TAB* 50 MG PO SCH (08:30)
[2017-02-01] MEDS: Aspirin EC Low Dose* 81 MG TAB.EC PO SCH (08:31)
[2017-02-01] MEDS: CMCS Dabigatran CAP(NF) 75 MG CAP PO SCH ×2 (08:31→20:34)
[2017-02-01] MEDS: Citalopram TAB* 20 MG PO SCH (08:31)
[2017-02-01] MEDS: Dofetilide CAP* 250 MCG PO SCH ×2 (08:31→20:35)
[2017-02-01] MEDS: HydroxyUREA CAP* 500 MG CAP PO SCH (08:31)
[2017-02-01] MEDS ORDERED: cefTRIAXone* 1 GM in NS 0.9% 50 ML BAG IVPB SCH (09:00)
--- NOTE | 2017-02-01 17:17 | PN ---
Subjective Date of Service: 02/01/17 Interval History: Patient seen and examined. Daughters at bedside. Was OOB to chair and bathroom, states pain improving. Denies chest pain, no headache or dizziness, no n/v, denies urinary symptoms, tolerating PO. No complaints. Family History: Unchanged from Admission Social History: Unchanged from Admission Past Medical History: Unchanged from Admission Objective Active Medications: Acetaminophen (Tylenol Tab*) 975 mg PO Q6H [facility] Last Admin: 02/01/17 14:04 Dose: 975 mg Aspirin (Aspirin Ec Low Dose*) 81 mg PO QAM [facility] Last Admin: 02/01/17 08:31 Dose: 81 mg Citalopram Hydrobromide (Celexa Tab*) 20 mg PO DAILY [facility] Last Admin: 02/01/17 08:31 Dose: 20 mg Dabigatran (Pradaxa Cap(Nf)) 75 mg PO BID [facility] Last Admin: 02/01/17 08:31 Dose: 75 mg Dofetilide (Tikosyn Cap*) 250 mcg PO Q12HR [facility] Last Admin: 02/01/17 08:31 Dose: 250 mcg Hydroxyurea (Hydrea Cap*) 500 mg PO DAILY [facility] Last Admin: 02/01/17 08:31 Dose: 500 mg Ceftriaxone Sodium 1 gm/ (Sodium Chloride) 50 mls @ 200 mls/hr IVPB Q24H [facility] Last Admin: 02/01/17 08:34 Dose: 200 mls/hr Levothyroxine Sodium (Synthroid Tab*) 125 mcg PO 0600 [facility] Last Admin: 02/01/17 06:17 Dose: 125 mcg Lidocaine (Lidoderm 5% Patch*) 1 patch TRANSDERM DAILY PRN PRN Reason: PAIN Metoprolol Succinate (Toprol Xl Tab*) 50 mg PO DAILY [facility] Last Admin: 02/01/17 08:30 Dose: 50 mg Multi-Ingredient Liniment/Rub (Gm Bey*) 1 applic TOPICAL DAILY PRN PRN Reason: PAIN Omeprazole (Prilosec Cap*) 20 mg PO DAILY [facility] Last Admin: 02/01/17 08:30 Dose: 20 mg Pharmacy Profile Note (Lidocaine Patch Remove*) 1 note N/A 2100 [facility] Polyethylene Glycol/Electrolytes (Miralax*) 17 gm PO DAILY PRN PRN Reason: CONSTIPATION Senna (Senokot Tab*) 1 tab PO BEDTIME PRN PRN Reason: CONSTIPATION Last Admin: 01/30/17 21:37 Dose: 1 tab Tramadol HCl (Ultram*) 25 mg PO TID PRN PRN Reason: PAIN Last Admin: 01/31/17 21:33 Dose: 25 mg Vital Signs - 8 hr 02/01/17 02/01/17 02/01/17 11:29 15:29 16:00 Temperature 97.3 F 97.9 F Pulse Rate 64 88 Respiratory 20 20 Rate Blood Pressure 105/40 122/70 (mmHg) O2 Sat by Pulse 98 95 95 Oximetry Oxygen Devices in Use Now: None Appearance: Well appearing, NAD Eyes: No Scleral Icterus, PERRLA Ears/Nose/Mouth/Throat: NL Teeth, Lips, Gums Neck: Trachea Midline Respiratory: Clear to Auscultation Cardiovascular: NL Sounds; No Murmurs; No JVD, RRR Abdominal: NL Sounds; No Tenderness; No Distention Skin: No Rash or Ulcers, No Nodules or Sclerosis Neurological: Alert and Oriented x 3 Nutrition: Taking PO's Result Diagrams: 01/31/17 05:30 01/31/17 05:30 Additional Lab and Data: . Microbiology and Other Data: Microbiology 01/30/17 14:30 Aerobic Blood Culture - Preliminary Blood Venous No Growth Day 2 Anaerobic Blood Culture - Preliminary No Growth Day 2 01/30/17 10:07 Aerobic Blood Culture - Preliminary Blood Venous No Growth Day 2 Anaerobic Blood Culture - Preliminary No Growth Day 2 01/30/17 12:18 Urine Culture - Final Urine Escherichia Coli Assess/Plan/Problems-Billing Assessment: - Patient Problems (1) Compression fracture of thoracic vertebra Code(s): S22.000A - WEDGE COMPRESSION FRACTURE OF UNSP THORACIC VERTEBRA, INIT SNOMED Code(s): 043227652 Comment: - Thoracic CT shows new T3, T4 and mild progression of T7. - No acute neurologic compromise - Neurosurgery following case - No acute surgical intervention, conservative tx with bract and PT/OT - Pain caontrol with tylenol and PRN Tramadol (2) Depression Code(s): F32.9 - MAJOR DEPRESSIVE DISORDER, SINGLE EPISODE, UNSPECIFIED SNOMED Code(s): 51879958 Comment: - Continue Lexapro daily (3) Full code status Code(s): Z78.9 - OTHER SPECIFIED HEALTH STATUS SNOMED Code(s): 633673412 (4) GERD (gastroesophageal reflux disease) Code(s): K21.9 - GASTRO-ESOPHAGEAL REFLUX DISEASE WITHOUT ESOPHAGITIS SNOMED Code(s): 625759404 Comment: - Continue omeprazole daily (5) HTN (hypertension) Code(s): I10 - ESSENTIAL (PRIMARY) HYPERTENSION SNOMED Code(s): 66990227 Comment: - Controlled on metoprolol daily (6) Compression fracture of L1 lumbar vertebra Code(s): S32.010A - WEDGE COMPRESSION FRACTURE OF FIRST LUMBAR VERTEBRA, INIT SNOMED Code(s): 916084762 Comment: - This is an old fx in the past treated with kyphoplasty, stable (7) DVT prophylaxis Code(s): CHC5376 - SNOMED Code(s): 668125913 Comment: - Already on Pradaxa (8) Hypothyroidism Code(s): E03.9 - HYPOTHYROIDISM, UNSPECIFIED SNOMED Code(s): 68863120 Comment: - Continue Synthroid daily (9) Urinary tract infection Comment: - Cultures with e.Coli, has been on ceftriaxone since admission - Will change to PO levaquin based on ANDRES in anticipation of DC, no hx of prolonged QT and patient has pacemaker (10) History of atrial fibrillation Code(s): Z86.79 - PERSONAL HISTORY OF OTHER DISEASES OF THE CIRCULATORY SYSTEM SNOMED Code(s): 541917321 Comment: - Controlled on pradaxa, tikosyn, metoprolol Status and Disposition: Inpatient, referred to [facility] for short term rehab. Discussed with patient and family. Referral made. Counseling and/or Coordination of Care Minutes: Coordinated with patient, her family and staff. Time spent >60 mins
[2017-02-02] MEDS: Acetaminophen TAB* 325 MG PO SCH ×4 (01:04→21:38)
[2017-02-02] MEDS: Lidocaine Patch REMOVE* 1 NOTE MISC SCH ×2 (01:09→22:07)
[2017-02-02] MEDS: Levothyroxine TAB* 125 MCG TAB PO SCH (05:45)
[2017-02-02] MEDS: Metoprolol Succinate XL TAB* 50 MG PO SCH (08:26)
[2017-02-02] MEDS: CMCS Dabigatran CAP(NF) 75 MG CAP PO SCH ×2 (08:26→21:39)
[2017-02-02] MEDS: Omeprazole CAP* 20 MG PO SCH (08:26)
[2017-02-02] MEDS: HydroxyUREA CAP* 500 MG CAP PO SCH (08:27)
[2017-02-02] MEDS: Aspirin EC Low Dose* 81 MG TAB.EC PO SCH (08:27)
[2017-02-02] MEDS: Dofetilide CAP* 250 MCG PO SCH ×2 (08:27→21:39)
[2017-02-02] MEDS: Citalopram TAB* 20 MG PO SCH (08:27)
[2017-02-02] MEDS: Amoxicillin/Clavulanate TAB* 500 MG PO SCH ×2 (08:27→21:38)
[2017-02-02] MEDS ORDERED: Levofloxacin TAB* 500 MG PO SCH (09:00)
--- NOTE | 2017-02-02 09:56 | PN ---
Subjective Family History: Unchanged from Admission Social History: Unchanged from Admission Past Medical History: Unchanged from Admission Objective Active Medications: Acetaminophen (Tylenol Tab*) 975 mg PO Q6H [facility] Last Admin: 02/02/17 08:26 Dose: 975 mg Amoxicillin/Clavulanate Potassium (Augmentin Tab*) 500 mg PO BID [facility] Stop: 02/06/17 21:01 Last Admin: 02/02/17 08:27 Dose: 500 mg Aspirin (Aspirin Ec Low Dose*) 81 mg PO QAM [facility] Last Admin: 02/02/17 08:27 Dose: 81 mg Citalopram Hydrobromide (Celexa Tab*) 20 mg PO DAILY [facility] Last Admin: 02/02/17 08:27 Dose: 20 mg Dabigatran (Pradaxa Cap(Nf)) 75 mg PO BID [facility] Last Admin: 02/02/17 08:26 Dose: 75 mg Dofetilide (Tikosyn Cap*) 250 mcg PO Q12HR [facility] Last Admin: 02/02/17 08:27 Dose: 250 mcg Hydroxyurea (Hydrea Cap*) 500 mg PO DAILY [facility] Last Admin: 02/02/17 08:27 Dose: 500 mg Levothyroxine Sodium (Synthroid Tab*) 125 mcg PO 0600 [facility] Last Admin: 02/02/17 05:45 Dose: 125 mcg Lidocaine (Lidoderm 5% Patch*) 1 patch TRANSDERM DAILY PRN PRN Reason: PAIN Metoprolol Succinate (Toprol Xl Tab*) 50 mg PO DAILY [facility] Last Admin: 02/02/17 08:26 Dose: 50 mg Multi-Ingredient Liniment/Rub (Gm Bey*) 1 applic TOPICAL DAILY PRN PRN Reason: PAIN Omeprazole (Prilosec Cap*) 20 mg PO DAILY [facility] Last Admin: 02/02/17 08:26 Dose: 20 mg Pharmacy Profile Note (Lidocaine Patch Remove*) 1 note N/A 2100 [facility] Last Admin: 02/02/17 01:09 Dose: Not Given Polyethylene Glycol/Electrolytes (Miralax*) 17 gm PO DAILY PRN PRN Reason: CONSTIPATION Senna (Senokot Tab*) 1 tab PO BEDTIME PRN PRN Reason: CONSTIPATION Last Admin: 01/30/17 21:37 Dose: 1 tab Tramadol HCl (Ultram*) 25 mg PO TID PRN PRN Reason: PAIN Last Admin: 01/31/17 21:33 Dose: 25 mg Vital Signs - 8 hr 02/02/17 03:23 Temperature 98.3 F Pulse Rate 67 Respiratory 16 Rate Blood Pressure 129/59 (mmHg) O2 Sat by Pulse 91 Oximetry Oxygen Devices in Use Now: None Result Diagrams: 01/31/17 05:30 01/31/17 05:30 Additional Lab and Data: . Microbiology and Other Data: Microbiology 01/30/17 14:30 Aerobic Blood Culture - Preliminary Blood Venous No Growth Day 2 Anaerobic Blood Culture - Preliminary No Growth Day 2 01/30/17 10:07 Aerobic Blood Culture - Preliminary Blood Venous No Growth Day 2 Anaerobic Blood Culture - Preliminary No Growth Day 2 01/30/17 12:18 Urine Culture - Final Urine Escherichia Coli Assess/Plan/Problems-Billing Assessment: - Patient Problems (1) Compression fracture of thoracic vertebra Code(s): S22.000A - WEDGE COMPRESSION FRACTURE OF UNSP THORACIC VERTEBRA, INIT SNOMED Code(s): 835413378 Comment: - Thoracic CT shows new T3, T4 and mild progression of T7. - No acute neurologic compromise - Neurosurgery following case - No acute surgical intervention, conservative tx with bract and PT/OT - Pain caontrol with tylenol and PRN Tramadol (2) Depression Code(s): F32.9 - MAJOR DEPRESSIVE DISORDER, SINGLE EPISODE, UNSPECIFIED SNOMED Code(s): 90855132 Comment: - Continue Lexapro daily (3) Full code status Code(s): Z78.9 - OTHER SPECIFIED HEALTH STATUS SNOMED Code(s): 021239438 (4) GERD (gastroesophageal reflux disease) Code(s): K21.9 - GASTRO-ESOPHAGEAL REFLUX DISEASE WITHOUT ESOPHAGITIS SNOMED Code(s): 645676301 Comment: - Continue omeprazole daily (5) HTN (hypertension) Code(s): I10 - ESSENTIAL (PRIMARY) HYPERTENSION SNOMED Code(s): 24591031 Comment: - Controlled on metoprolol daily (6) Compression fracture of L1 lumbar vertebra Code(s): S32.010A - WEDGE COMPRESSION FRACTURE OF FIRST LUMBAR VERTEBRA, INIT SNOMED Code(s): 143390259 Comment: - This is an old fx in the past treated with kyphoplasty, stable (7) DVT prophylaxis Code(s): YVL0604 - SNOMED Code(s): 450329839 Comment: - Already on Pradaxa (8) Hypothyroidism Code(s): E03.9 - HYPOTHYROIDISM, UNSPECIFIED SNOMED Code(s): 51781075 Comment: - Continue Synthroid daily (9) Urinary tract infection Comment: - Cultures with e.Coli, has been on ceftriaxone since admission - Will change to PO levaquin based on ANDRES in anticipation of DC, no hx of prolonged QT and patient has pacemaker (10) History of atrial fibrillation Code(s): Z86.79 - PERSONAL HISTORY OF OTHER DISEASES OF THE CIRCULATORY SYSTEM SNOMED Code(s): 044613457 Comment: - Controlled on pradaxa, tikosyn, metoprolol Status and Disposition: Inpatient, referred to [facility] for short term rehab. Discussed with patient and family. Referral made.
--- NOTE | 2017-02-02 10:03 | PN ---
Subjective Date of Service: 02/02/17 Interval History: Patient seen and examined. No acute overnight events. Feeling well, slept well. Tolerating PO. Pain is better controlled. No chest pain, no SOB. No further complaints. States she is ready for rehab. Family History: Unchanged from Admission Social History: Unchanged from Admission Past Medical History: Unchanged from Admission Objective Active Medications: Acetaminophen (Tylenol Tab*) 975 mg PO Q6H [facility] Last Admin: 02/02/17 08:26 Dose: 975 mg Amoxicillin/Clavulanate Potassium (Augmentin Tab*) 500 mg PO BID [facility] Stop: 02/06/17 21:01 Last Admin: 02/02/17 08:27 Dose: 500 mg Aspirin (Aspirin Ec Low Dose*) 81 mg PO QAM [facility] Last Admin: 02/02/17 08:27 Dose: 81 mg Citalopram Hydrobromide (Celexa Tab*) 20 mg PO DAILY [facility] Last Admin: 02/02/17 08:27 Dose: 20 mg Dabigatran (Pradaxa Cap(Nf)) 75 mg PO BID [facility] Last Admin: 02/02/17 08:26 Dose: 75 mg Dofetilide (Tikosyn Cap*) 250 mcg PO Q12HR [facility] Last Admin: 02/02/17 08:27 Dose: 250 mcg Hydroxyurea (Hydrea Cap*) 500 mg PO DAILY [facility] Last Admin: 02/02/17 08:27 Dose: 500 mg Levothyroxine Sodium (Synthroid Tab*) 125 mcg PO 0600 [facility] Last Admin: 02/02/17 05:45 Dose: 125 mcg Lidocaine (Lidoderm 5% Patch*) 1 patch TRANSDERM DAILY PRN PRN Reason: PAIN Metoprolol Succinate (Toprol Xl Tab*) 50 mg PO DAILY [facility] Last Admin: 02/02/17 08:26 Dose: 50 mg Multi-Ingredient Liniment/Rub (Gm Bey*) 1 applic TOPICAL DAILY PRN PRN Reason: PAIN Omeprazole (Prilosec Cap*) 20 mg PO DAILY [facility] Last Admin: 02/02/17 08:26 Dose: 20 mg Pharmacy Profile Note (Lidocaine Patch Remove*) 1 note N/A 2100 [facility] Last Admin: 02/02/17 01:09 Dose: Not Given Polyethylene Glycol/Electrolytes (Miralax*) 17 gm PO DAILY PRN PRN Reason: CONSTIPATION Senna (Senokot Tab*) 1 tab PO BEDTIME PRN PRN Reason: CONSTIPATION Last Admin: 01/30/17 21:37 Dose: 1 tab Tramadol HCl (Ultram*) 25 mg PO TID PRN PRN Reason: PAIN Last Admin: 01/31/17 21:33 Dose: 25 mg Vital Signs - 8 hr 02/02/17 03:23 Temperature 98.3 F Pulse Rate 67 Respiratory 16 Rate Blood Pressure 129/59 (mmHg) O2 Sat by Pulse 91 Oximetry Oxygen Devices in Use Now: None Eyes: PERRLA Ears/Nose/Mouth/Throat: NL Teeth, Lips, Gums, Mucous Membranes Moist Neck: NL Appearance and Movements; NL JVP Respiratory: Clear to Auscultation Cardiovascular: NL Sounds; No Murmurs; No JVD Abdominal: NL Sounds; No Tenderness; No Distention Extremities: No Edema Neurological: Alert and Oriented x 3, NL Sensation, NL Muscle Strength and Tone Nutrition: Taking PO's Result Diagrams: 01/31/17 05:30 01/31/17 05:30 Additional Lab and Data: . Microbiology and Other Data: Microbiology 01/30/17 14:30 Aerobic Blood Culture - Preliminary Blood Venous No Growth Day 2 Anaerobic Blood Culture - Preliminary No Growth Day 2 01/30/17 10:07 Aerobic Blood Culture - Preliminary Blood Venous No Growth Day 2 Anaerobic Blood Culture - Preliminary No Growth Day 2 01/30/17 12:18 Urine Culture - Final Urine Escherichia Coli Assess/Plan/Problems-Billing Assessment: - Patient Problems (1) Compression fracture of thoracic vertebra Code(s): S22.000A - WEDGE COMPRESSION FRACTURE OF UNSP THORACIC VERTEBRA, INIT SNOMED Code(s): 426097536 Comment: - Thoracic CT shows new T3, T4 and mild progression of T7. - No acute neurologic compromise, remains stable since admission - Neurosurgery following case and advises no acute surgical intervention, conservative tx with brace and PT/OT - Pain control with tylenol and PRN Tramadol, would advise limiting controlled rx given advanced age (2) Depression Code(s): F32.9 - MAJOR DEPRESSIVE DISORDER, SINGLE EPISODE, UNSPECIFIED SNOMED Code(s): 01139838 Comment: - Continue Lexapro daily, mood stable (3) Full code status Code(s): Z78.9 - OTHER SPECIFIED HEALTH STATUS SNOMED Code(s): 257738617 (4) GERD (gastroesophageal reflux disease) Code(s): K21.9 - GASTRO-ESOPHAGEAL REFLUX DISEASE WITHOUT ESOPHAGITIS SNOMED Code(s): 086919665 Comment: - Continue omeprazole daily (5) HTN (hypertension) Code(s): I10 - ESSENTIAL (PRIMARY) HYPERTENSION SNOMED Code(s): 16993249 Comment: - Controlled on metoprolol daily, remains stable (6) Compression fracture of L1 lumbar vertebra Code(s): S32.010A - WEDGE COMPRESSION FRACTURE OF FIRST LUMBAR VERTEBRA, INIT SNOMED Code(s): 491044422 Comment: - This is an old fx in the past treated with kyphoplasty, stable (7) DVT prophylaxis Code(s): KVU0004 - SNOMED Code(s): 894785557 Comment: - Already on Pradaxa (8) Hypothyroidism Code(s): E03.9 - HYPOTHYROIDISM, UNSPECIFIED SNOMED Code(s): 22707924 Comment: - Continue Synthroid daily (9) Urinary tract infection Comment: - Cultures with e.Coli, has been on ceftriaxone since admission - Discussed with pharmacy, will place on augmentin BID based on ANDRES, although no hx of prolonged QT, levaquin with tikosyn not recommended (10) History of atrial fibrillation Code(s): Z86.79 - PERSONAL HISTORY OF OTHER DISEASES OF THE CIRCULATORY SYSTEM SNOMED Code(s): 010295964 Comment: - Controlled on pradaxa, tikosyn, metoprolol Status and Disposition: Inpatient, referred to [facility] for short term rehab. Discussed with patient and family. Referral made. Will DC when bed available. Will DC tele and IV access today. Counseling and/or Coordination of Care Minutes: Coordinated with patient, RN and case mgmt staff. Time spent >45mins
--- NOTE | 2017-02-02 14:07 | PN ---
Progress Note - Progress Note Date of Service: 02/02/17 SOAP: Subjective: []No events ON. Tolerates PO well. Voids. Ambulates. Mild back pain Objective: VSS, Afebrile []AAOx3 MELBA, Missy 4-5/5 Sensory grossly intact to light touch. Assessment: []86 yof fall T3,4 #, history of L1 # sp kyphoplasty Plan: []Encourage ambulation Discussed with patient regarding her condition. Patient understands risks and benefits of treatment options and she would also prefer to continue conservative treatment. Fall precautions. Osteoporosis management. Follow up with me with new thoracic spine films in two weeks in the office. Peggy Mayers MD
--- NOTE | 2017-02-02 15:17 | DS ---
AMENDED REPORT NOW INCLUDES COSIGNER DESIGNATION - ESIGNED BEFORE ADJUSTMENT CC: Dr. Cassie Sim * DISCHARGE SUMMARY: DATE OF ADMISSION: 01/30/17 DATE OF DISCHARGE: 02/02/17 ATTENDING PHYSICIAN: Dr. Drew Wise MD * (DICTATED BY JOSE A HI NP) HOSPITAL COURSE: This is a very pleasant 86-year-old female patient who had presented to the emergency department with a fall at around 4 o'clock in the morning on 01/30/17. She was complaining of some lower back pain and bilateral hip pain. She was not on the floor for long. She was able to get back up. Diagnostics and radiograph exams revealed spinal vertebral compression fractures. She had previously had some old L1 and T10 compression fractures which had been previously treated with kyphoplasty. However, she did appear to have some new fractures at the levels of T3 and T4 also with progression of an existing T7 fracture that also had some additional damage. Neurosurgery was consulted. Dr. Mayers had consulted on the patient and determined and interpreted her CT and determined that a more conservative medical management would be appropriate, conservative treatment with bracing, pain management, physical therapy. She received a Sultana hyperextension brace as tolerated, follow precautions and physical therapy, transfer assistance, etc. She had no progressive neurologic symptoms during the time of her exam and during her hospitalization and it was determined that she would do well to try to heal on her own as opposed to having an additional kyphoplasty, which she had had in the past. The patient was medically stabilized over the course of her hospitalization. It was determined by physical therapy and she will be a candidate for rehabilitation. She was accepted at [facility] today, a bed is available and waiting for her at that facility. LABORATORY DATA: Laboratories on the day of discharge WBC is 8.4, RBC is 4.57, hemoglobin 10.3, hematocrit 34. Chemistries: Sodium 133, potassium 3.9, chloride 102, CO2 of 24, BUN 17, creatinine 0.45. Urine showed she did have positive nitrates in urine. She did have urinary tract infection that was treated. Urine micro showed E. coli. PHYSICAL EXAMINATION: Vital Signs: Temperature 97.9, pulse 64, respiration rate 20, O2 saturation 95% on room air, blood pressure 125/71. MEDICATIONS AT THE TIME OF DISCHARGE: Include: 1. Hydroxyurea 500 mg one tablet daily. 2. Levothyroxine 125 mcg one tablet daily. 3. Lidoderm patch 5% one patch transdermally as needed for pains daily. 4. Metoprolol succinate 50 mg one tablet daily. 5. Bengay topical applied as needed daily. 6. Omeprazole 20 mg daily. 7. MiraLAX 17 g packet daily. 8. Senokot one tablet q.h.s. as needed daily. 9. Tramadol 25 mg up to three times a day as needed for pain. 10. Augmentin 500 mg one tablet two times a day for the next 7 days. 11. Citalopram 20 mg one tablet daily. 12. Pradaxa 75 mg two times a day. 13. Tikosyn 250 mg one tablet two times day. 14. Tylenol 975 mg every 6 hours as needed for pain. DISPOSITION: The patient was discharged in stable condition to [facility]. All questions were answered through case management with her family. They were in agreement with her discharge plan of care. Case management has also arranged her ambulance transfer, due to the patient's clinical status, to be transferred later on this afternoon. Family members will be calling the patient's son, who is the primary medical proxy for the patient and advise him of the plan for transfer later today. JOSE A HI, TUBE WORKER [id number]/[facility] #: [id number] DOLLY
[2017-02-03] MEDS: Acetaminophen TAB* 325 MG PO SCH ×2 (01:57→08:10)
[2017-02-03] MEDS: Levothyroxine TAB* 125 MCG TAB PO SCH (06:17)
[2017-02-03] MEDS: HydroxyUREA CAP* 500 MG CAP PO SCH (08:09)
[2017-02-03] MEDS: CMCS Dabigatran CAP(NF) 75 MG CAP PO SCH (08:10)
[2017-02-03] MEDS: Metoprolol Succinate XL TAB* 50 MG PO SCH (08:10)
[2017-02-03] MEDS: Citalopram TAB* 20 MG PO SCH (08:10)
[2017-02-03] MEDS: Omeprazole CAP* 20 MG PO SCH (08:10)
[2017-02-03] MEDS: Aspirin EC Low Dose* 81 MG TAB.EC PO SCH (08:10)
[2017-02-03] MEDS: Dofetilide CAP* 250 MCG PO SCH (08:10)
[2017-02-03] MEDS: Amoxicillin/Clavulanate TAB* 500 MG PO SCH (08:10)
[2017-02-03 10:22] VITALS: BP 141/89
== END 2017-02-03 11:13 | DRG 552 ==
LOC: ED 07:32 → MEDTELE 09:20
PROVIDERS: ADMIT Internal Medicine; ATTEND Internal Medicine
DX: S22.039A Unspecified fracture of third thoracic vertebra, initial encounter for closed fracture (principal); F33.9 Major depressive disorder, recurrent, unspecified; D45 Polycythemia vera; I48.2 Chronic atrial fibrillation; N39.0 Urinary tract infection, site not specified; S22.049A Unspecified fracture of fourth thoracic vertebra, initial encounter for closed fracture; E03.9 Hypothyroidism, unspecified; S22.068A Other fracture of T7-T8 thoracic vertebra, initial encounter for closed fracture; W18.09XA Striking against other object with subsequent fall, initial encounter; Y92.023 Bedroom in mobile home as the place of occurrence of the external cause; I10 Essential (primary) hypertension; E78.5 Hyperlipidemia, unspecified; F41.9 Anxiety disorder, unspecified; K58.9 Irritable bowel syndrome, unspecified; M81.0 Age-related osteoporosis without current pathological fracture; M85.88 Other specified disorders of bone density and structure, other site; M47.9 Spondylosis, unspecified; B96.20 Unspecified Escherichia coli [E. coli] as the cause of diseases classified elsewhere; K21.9 Gastro-esophageal reflux disease without esophagitis; M19.90 Unspecified osteoarthritis, unspecified site; Z95.810 Presence of automatic (implantable) cardiac defibrillator; Z79.1 Long term (current) use of non-steroidal anti-inflammatories (NSAID); Z79.82 Long term (current) use of aspirin; Z79.899 Other long term (current) drug therapy; Z91.030 Bee allergy status; Z88.2 Allergy status to sulfonamides; Z88.8 Allergy status to other drugs, medicaments and biological substances; Z91.048 Other nonmedicinal substance allergy status; Z82.3 Family history of stroke; Z83.3 Family history of diabetes mellitus; Z80.3 Family history of malignant neoplasm of breast; Z87.891 Personal history of nicotine dependence; Z79.01 Long term (current) use of anticoagulants
CPT/HCPCS: 36415; 71010; 72131; 74176; 80048; 80053; 81003; 81015; 82550; 82553; 83605; 83690; 83735; 83880; 84443; 84484; 85025; 85610; 85730; 86140; 87040; 87077; 87086; 87186; A9270-GY; J0456; J0696

== ENCOUNTER 2017-03-24 21:58 | Inpatient (IN) | payer MEDICARE, OTHER ==
[2017-03-24] MEDS ORDERED: NS 0.9% 1000 ML*IV.FLUID IV ONE (22:07)
[2017-03-24 22:21] LABS: Hematocrit 44 % (35-47); Hemoglobin 14.1 g/dl (12.0-16.0); Mean Corpuscular HGB Conc 32 g/dl (31-36); Mean Corpuscular Hemoglobin 26 pg (27-31); Mean Corpuscular Volume 80 fL (80-97); Mean Platelet Volume 7 um3 (7.4-10.4); Platelet Count 276 10^3/ul (150-450); Red Blood Count 5.51 10^6/ul (4.0-5.4); Red Cell Distribution Width 21 % (10.5-15); White Blood Count 10.8 10^3/ul (3.5-10.8)
[2017-03-24 22:32] LABS: ABS Basophils 0 10^3/ul (0-0.2); ABS Eosinophils 0 10^3/ul (0-0.6); ABS Lymphocytes 0.4 10^3/ul (1.0-4.8); ABS Monocytes 0.8 10^3/ul (0-0.8); ABS Neutrophils 9.5 10^3/ul (1.5-7.7); ABS Nucleated RBC 0 10^3/ul; Eosinophil % 0 % (0-6); Nucleated Red Blood Cells % 0
[2017-03-24 22:36] LABS: EGFR Non-African American 66.3 (>60); INR 1.5 (0.77-1.02)
[2017-03-25 00:07] LABS: Urine Appearance Cloudy; Urine Blood 1+ (Negative); Urine Color Amber; Urine Ketones Negative (Negative); Urine Protein 1+(30 mg/dL) (Negative); Urine Specific Gravity 1.021 (1.010-1.030); Urine Urobilinogen Negative (Negative)
--- NOTE | 2017-03-25 00:31 | ED ---
Raghu Nuñez Jennifer, scribed for Cornelio Blanco MD on 03/24/17 at 2210 . Altered Mental Status - HPI Summary HPI Summary: The patient is an 86 year old female who was brought to the ED today for for AMS evaluation from [facility]. LEVEL 5 CAVEAT: HPI limited due to AMS. - History Of Current Complaint Stated Complaint: AMS Time Seen by Provider: 03/24/17 22:02 Hx Obtained From: EMS Hx From Patient Unobtainable Due To: Altered Mental Status Onset/Duration: Unknown - Allergies/Home Medications Allergies/Adverse Reactions: Allergies Allergy/AdvReac Type Severity Reaction Status Date / Time MS Bee Venom [Bee Venom] Allergy Anaphylatic Verified 12/16/16 22:43 Shock MS Iodinated Diagnostic Allergy Hives Verified 02/03/17 11:03 Agents [Iodinated Diagnostic Agents] MS Sulfa Antibiotics Allergy Rash Verified 12/16/16 22:43 [Sulfa Antibiotics] IODINE/IVP DYE Allergy Hives Uncoded 12/16/16 22:43 THALLIUM Allergy Hives Uncoded 12/16/16 22:43 PMH/Surg Hx/FS Hx/Imm Hx Endocrine/Hematology History: Reports: Hx Thyroid Disease - hypothyroid, controlled with medication Denies: Hx Blood Disorders, Hx Blood Transfusions, Hx Bone Marrow Disease, Hx Diabetes, Hx Systemic Lupus Erythematosus, Hx Sickle Cell Disease, Hx Anemia , Hx Unexplained Bleeding, Other Endocrine/Hematological Disorders Cardiovascular History: Reports: Hx Hypercholesterolemia, Hx Hypertension - controlled with medication, Hx Pacemaker/ICD - 9/14/15, Other Cardiovascular Problems/Disorders - hx A-fib Denies: Hx Aneurysm, Hx Angina, Hx Angioplasty, Hx Auto Implanted Cardiovert Defib, Hx Cardiac Arrest, Hx Cardiomegaly, Hx Congenital Heart Disease, Hx Congestive Heart Failure, Hx Coronary Artery Disease, Hx Deep Vein Thrombosis, Hx Embolism, Hx Hypotension, Hx Peripheral Vascular Disease, Hx Rheumatic Fever , Hx Syncope, Hx Valvular Heart Disease Respiratory History: Denies: Hx Asthma, Hx Chronic Bronchitis, Hx Chronic Obstructive Pulmonary Disease (COPD), Hx Cystic Fibrosis, Hx Lung Cancer, Hx Pleural Effusion, Hx Pneumonia, Hx Pulmonary Edema, Hx Pulmonary Embolism, Hx Seasonal Allergies, Hx Sleep Apnea, Other Respiratory Problems/Disorders GI History: Reports: Hx Diverticulosis, Hx Irritable Bowel - controlled with diet and medication, Other GI Disorders - 4 duodenal ulcers, controlled with medication Denies: Hx Cirrhosis, Hx Crohn's Disease, Hx Gall Bladder Disease, Hx Gastroesophageal Reflux Disease, Hx Gastrointestinal Bleed, Hx Jaundice, Hx Obstructive Bowel, Hx Ileostomy, Hx Pyloric Stenosis, Hx Ulcer History: Denies: Hx Acute Renal Failure, Hx Benign Prostatic Hyperplasia, Hx Chronic Renal Failure, Hx Dialysis, Hx Kidney Infection, Hx Kidney Stones, Other Problems/Disorders Musculoskeletal History: Reports: Hx Arthritis, Hx Back Problems, Hx Orthopedic Injury - compression fx lower back, Hx Osteoporosis Denies: Hx Bursitis, Hx Congenital Bone Abnormalities, Hx Fibromyalgia, Hx Gout, Hx Scoliosis, Hx Tendonitis, Other Musculoskeletal History Sensory History: Reports: Hx Cataracts - bi-lat surgery approx 5 yrs ago, Hx Contacts or Glasses - reading glasses, Hx Hearing Aid Denies: Hx Eye Injury, Hx Eye Prosthesis, Hx Glaucoma, Hx Legally Blind, Hx Macular Degeneration, Hx Vision Problem, Hx Deafness, Hx Hearing Problem, Other Sensory Impairments Opthamlomology History: Reports: Hx Cataracts - bi-lat surgery approx 5 yrs ago , Hx Contacts or Glasses - reading glasses Denies: Hx Eye Injury, Hx Eye Prosthesis, Hx Glaucoma, Hx Legally Blind, Hx Macular Degeneration, Hx Vision Problem, Other Sensory Impairments Neurological History: Reports: Hx Headaches, Hx Migraine - last migraine, over 5 yrs ago Denies: Hx Dementia, Hx Developmental Delay, Hx Nerve Disease, Hx Seizures, Hx Spinal Cord Injury, Hx Transient Ischemic Attacks (TIA), Other Neuro Impairments/Disorders Psychiatric History: Reports: Hx Anxiety - controlled with medication, Hx Depression - controlled with medication Denies: Hx Attention Deficit Hyperactivity Disorder, Hx Eating Disorder, Hx Panic Disorder, Hx Post Traumatic Stress Disorder, Hx Inpatient Treatment, Hx Community Mental Health Tx, Hx Schizophrenia, Hx Bipolar Disorder, Hx Suicide Attempt, Hx of Violent Episodes Against Others, Hx Substance Abuse, Other Psychiatric Issues/Disorders - Cancer History Hx Chemotherapy: No Hx Radiation Therapy: No Hx Palliative Cancer Treatment: No - Surgical History Surgery Procedure, Year, and Place: HYSTERECTOMY 1987. cataract removal bi-lat 2011? Hx Anesthesia Reactions: No - Immunization History Date of Tetanus Vaccine: unk Date of Influenza Vaccine: unk Infectious Disease History: Reports: Hx Shingles Denies: Hx Clostridium Difficile, Hx Hepatitis, Hx Human Immunodeficiency Virus (HIV), Hx of Known/Suspected MRSA, Hx Tuberculosis, Hx Known/Suspected VRE , Hx Known/Suspected VRSA, History Other Infectious Disease - Family History Known Family History: Positive: Cardiac Disease, Diabetes, Other - Positive Breast CA Family History: FHx of Breast CA - Social History Alcohol Use: None Hx Substance Use: No Substance Use Type: Reports: Other Substance Use Comment - Amount & Last Used: Tylenon with codeine Hx Tobacco Use: Yes Smoking Status (MU): Former Smoker Amount Used/How Often: smoked 1 ppd for approx 12 years Have You Smoked in the Last Year: No Review of Systems - ROS Summary Review of Systems Summary: PATIENT IS A LEVEL 5 CAVEAT DUE TO DECREASED LEVEL OF RESPONSIVENESS Neurological: Other - Decreased responsiveness All Other Systems Reviewed And Are Negative: No - Comments Additional Review of Systems Comments: LEVEL 5 CAVEAT: ROS limited due to AMS. Physical Exam - Summary Physical Exam Summary: General: well-appearing, no pain distress. Decreased level of consciousness but responds to voice. Skin: warm, color reflects adequate perfusion, dry Head: normal Eyes: EOMI, MELBA ENT: normal Neck: supple, nontender Respiratory: CTA, breath sounds present Cardiovascular: Tachycardic. Regular rhythm. Abdomen: soft, nontender Bowel: present Musculoskeletal: normal, strength/ROM intact Extremities: able to move all extremities. Neurological: normal, sensory/motor intact, A&O x3 Psychological: affect/mood appropriate Triage Information Reviewed: Yes Vital Signs On Initial Exam: Initial Vitals Pulse Ox 95 03/24/17 22:13 Vital Signs Reviewed: Yes Diagnostics - Vital Signs Vital Signs Temp Pulse Resp BP Pulse Ox 03/25/17 00:14 99 20 104/58 97 03/24/17 22:22 99 03/24/17 22:14 97.9 F 94 22 111/63 96 03/24/17 22:13 95 - Laboratory Lab Results: Lab Results 03/24/17 03/24/17 03/24/17 Range/Units 22:10 22:10 22:10 WBC 10.8 (3.5-10.8) 10^3/ul RBC 5.51 H (4.0-5.4) 10^6/ul Hgb 14.1 (12.0-16.0) g/dl Hct 44 (35-47) % MCV 80 (80-97) fL MCH 26 L (27-31) pg MCHC 32 (31-36) g/dl RDW 21 H (10.5-15) % Plt Count 276 (150-450) 10^3/ul MPV 7 L (7.4-10.4) um3 Neut % (Auto) 88.1 H (38-83) % Lymph % (Auto) 4.0 L (25-47) % Gem % (Auto) 7.8 (1-9) % Eos % (Auto) 0 (0-6) % Baso % (Auto) 0.1 (0-2) % Absolute Neuts (auto) 9.5 H (1.5-7.7) 10^3/ul Absolute Lymphs (auto) 0.4 L (1.0-4.8) 10^3/ul Absolute Monos (auto) 0.8 (0-0.8) 10^3/ul Absolute Eos (auto) 0 (0-0.6) 10^3/ul Absolute Basos (auto) 0 (0-0.2) 10^3/ul Absolute Nucleated RBC 0 10^3/ul Nucleated RBC % 0 INR (Anticoag Therapy) 1.50 H (0.77-1.02) APTT 43.9 H (26.0-36.3) seconds Sodium 131 L (133-145) mmol/L Potassium 5.0 (3.5-5.0) mmol/L Chloride 96 L (101-111) mmol/L Carbon Dioxide 28 (22-32) mmol/L Anion Gap 7 (2-11) mmol/L BUN 31 H (6-24) mg/dL Creatinine 0.82 (0.51-0.95) mg/dL Est GFR ( Amer) 85.2 (>60) Est GFR (Non-Af Amer) 66.3 (>60) BUN/Creatinine Ratio 37.8 H (8-20) Glucose 153 H (70-100) mg/dL Lactic Acid (0.5-2.0) mmol/L Calcium 9.0 (8.6-10.3) mg/dL Total Bilirubin 0.70 (0.2-1.0) mg/dL AST 11 L (13-39) U/L ALT 9 (7-52) U/L Alkaline Phosphatase 64 (34-104) U/L Troponin I 0.01 (<0.04) ng/mL C-Reactive Protein 41.22 H (< 5.00) mg/L B-Natriuretic Peptide ( - 100) pg/mL Total Protein 7.1 (6.4-8.9) g/dL Albumin 3.5 (3.2-5.2) g/dL Globulin 3.6 (2-4) g/dL Albumin/Globulin Ratio 1.0 (1-3) Urine Color Urine Appearance Urine pH (5-9) Ur Specific [place] (1.010-1.030) Urine Protein (Negative) Urine Ketones (Negative) Urine Blood (Negative) Urine Nitrate (Negative) Urine Bilirubin (Negative) Urine Urobilinogen (Negative) Ur Leukocyte Esterase (Negative) Urine WBC (Auto) (Absent) Urine RBC (Auto) (Absent) Ur Squamous Epith Cells (Absent) Urine Bacteria (Absent) Urine Glucose (Negative) Influenza A (Rapid) (Negative) Influenza B (Rapid) (Negative) 03/24/17 03/24/17 03/24/17 Range/Units 22:10 22:10 22:22 WBC (3.5-10.8) 10^3/ul RBC (4.0-5.4) 10^6/ul Hgb (12.0-16.0) g/dl Hct (35-47) % MCV (80-97) fL MCH (27-31) pg MCHC (31-36) g/dl RDW (10.5-15) % Plt Count (150-450) 10^3/ul MPV (7.4-10.4) um3 Neut % (Auto) (38-83) % Lymph % (Auto) (25-47) % Gem % (Auto) (1-9) % Eos % (Auto) (0-6) % Baso % (Auto) (0-2) % Absolute Neuts (auto) (1.5-7.7) 10^3/ul Absolute Lymphs (auto) (1.0-4.8) 10^3/ul Absolute Monos (auto) (0-0.8) 10^3/ul Absolute Eos (auto) (0-0.6) 10^3/ul Absolute Basos (auto) (0-0.2) 10^3/ul Absolute Nucleated RBC 10^3/ul Nucleated RBC % INR (Anticoag Therapy) (0.77-1.02) APTT (26.0-36.3) seconds Sodium (133-145) mmol/L Potassium (3.5-5.0) mmol/L Chloride (101-111) mmol/L Carbon Dioxide (22-32) mmol/L Anion Gap (2-11) mmol/L BUN (6-24) mg/dL Creatinine (0.51-0.95) mg/dL Est GFR ( Amer) (>60) Est GFR (Non-Af Amer) (>60) BUN/Creatinine Ratio (8-20) Glucose (70-100) mg/dL Lactic Acid 1.5 (0.5-2.0) mmol/L Calcium (8.6-10.3) mg/dL Total Bilirubin (0.2-1.0) mg/dL AST (13-39) U/L ALT (7-52) U/L Alkaline Phosphatase (34-104) U/L Troponin I (<0.04) ng/mL C-Reactive Protein (< 5.00) mg/L B-Natriuretic Peptide 162 H ( - 100) pg/mL Total Protein (6.4-8.9) g/dL Albumin (3.2-5.2) g/dL Globulin (2-4) g/dL Albumin/Globulin Ratio (1-3) Urine Color Urine Appearance Urine pH (5-9) Ur Specific [place] (1.010-1.030) Urine Protein (Negative) Urine Ketones (Negative) Urine Blood (Negative) Urine Nitrate (Negative) Urine Bilirubin (Negative) Urine Urobilinogen (Negative) Ur Leukocyte Esterase (Negative) Urine WBC (Auto) (Absent) Urine RBC (Auto) (Absent) Ur Squamous Epith Cells (Absent) Urine Bacteria (Absent) Urine Glucose (Negative) Influenza A (Rapid) Negative (Negative) Influenza B (Rapid) Negative (Negative) 03/24/17 Range/Units 23:48 WBC (3.5-10.8) 10^3/ul RBC (4.0-5.4) 10^6/ul Hgb (12.0-16.0) g/dl Hct (35-47) % MCV (80-97) fL MCH (27-31) pg MCHC (31-36) g/dl RDW (10.5-15) % Plt Count (150-450) 10^3/ul MPV (7.4-10.4) um3 Neut % (Auto) (38-83) % Lymph % (Auto) (25-47) % Gem % (Auto) (1-9) % Eos % (Auto) (0-6) % Baso % (Auto) (0-2) % Absolute Neuts (auto) (1.5-7.7) 10^3/ul Absolute Lymphs (auto) (1.0-4.8) 10^3/ul Absolute Monos (auto) (0-0.8) 10^3/ul Absolute Eos (auto) (0-0.6) 10^3/ul Absolute Basos (auto) (0-0.2) 10^3/ul Absolute Nucleated RBC 10^3/ul Nucleated RBC % INR (Anticoag Therapy) (0.77-1.02) APTT (26.0-36.3) seconds Sodium (133-145) mmol/L Potassium (3.5-5.0) mmol/L Chloride (101-111) mmol/L Carbon Dioxide (22-32) mmol/L Anion Gap (2-11) mmol/L BUN (6-24) mg/dL Creatinine (0.51-0.95) mg/dL Est GFR ( Amer) (>60) Est GFR (Non-Af Amer) (>60) BUN/Creatinine Ratio (8-20) Glucose (70-100) mg/dL Lactic Acid (0.5-2.0) mmol/L Calcium (8.6-10.3) mg/dL Total Bilirubin (0.2-1.0) mg/dL AST (13-39) U/L ALT (7-52) U/L Alkaline Phosphatase (34-104) U/L Troponin I (<0.04) ng/mL C-Reactive Protein (< 5.00) mg/L B-Natriuretic Peptide ( - 100) pg/mL Total Protein (6.4-8.9) g/dL Albumin (3.2-5.2) g/dL Globulin (2-4) g/dL Albumin/Globulin Ratio (1-3) Urine Color [place] Urine Appearance Cloudy Urine pH 5.0 (5-9) Ur Specific [place] 1.021 (1.010-1.030) Urine Protein 1+(30 mg/dl) H (Negative) Urine Ketones Negative (Negative) Urine Blood 1+ H (Negative) Urine Nitrate Negative (Negative) Urine Bilirubin Negative (Negative) Urine Urobilinogen Negative (Negative) Ur Leukocyte Esterase Negative (Negative) Urine WBC (Auto) Absent (Absent) Urine RBC (Auto) 1+(3-5/hpf) H (Absent) Ur Squamous Epith Cells Present H (Absent) Urine Bacteria Absent (Absent) Urine Glucose Negative (Negative) Influenza A (Rapid) (Negative) Influenza B (Rapid) (Negative) Result Diagrams: 03/24/17 22:10 03/24/17 22:10 Lab Statement: Any lab studies that have been ordered have been reviewed, and results considered in the medical decision making process. - CT CT Head CT Interpretation: No Acute Changes - No intracranial mass or bleed. Chronic appearing involutional changes of aging. Dr. Blanco has reviewed this report. CT Interpretation Completed By: Radiologist - EKG 22:16 EKG Interpretation: Atrial-paced at [address] segment. Altered Mental Statu Course/Dx - Course Course Of Treatment: MILD IMPROVEMENT IN LOC WITH IVF. ADMIT HOSPITALIST. NO CRITICAL CARE TIME. - Diagnoses Discharge Diagnoses: Altered mental state, Dehydration Discharge - Discharge Plan Condition: Stable Disposition: ADMITTED TO [facility] Referrals: Cassie Sim MD [Primary Care Provider] - The documentation as recorded by the Raghu goodman Jennifer accurately reflects the service I personally performed and the decisions made by , Cornelio Blanco MD.
--- NOTE | 2017-03-25 01:04 | HP ---
H&P (Free Text) History and Physical: PCP: Adan Sim MD Date/Time: 03/25/2017 0030 CC: confusion HPI: Mrs Gallardo is an 86YO female HX AFIB, HTN, HLD, polycythemia, & hypothyroidism who was sent from [facility] for increased confusion and lethargy for the past 2-3 days. No other complaints were noted and Mrs Gallardo is unreliable as a historian beyond perhaps current status information. It is unclear what her baseline is. She denies chest pain, SOB, N/V, diarrhea, F/C, sweats, cough, congestion, or other issues. Per ED nursing, she was minimally responsive upon arrival having improved notably with 2L IVFs. Work up has been rather unrevealing. PMedHx AFIB on dabigatran HTN HLD polycythemia vera hypothyroidism migraine IBS diverticulosis depression/anxiety osteoporosis Ambulatory Orders Nursing to reconcile. Dabigatran CAP(NF) [Pradaxa CAP(NF)] 75 mg PO BID #60 cap 09/01/15 Dofetilide CAP* [Tikosyn CAP*] 250 mcg PO Q12H 05/08/16 Aspirin EC Low Dose* [Ecotrin EC Low Dose 81 MG*] 1 tab PO QAM 06/26/16 Acetaminophen TAB* [Tylenol TAB*] 325 - 487.5 mg PO DAILY PRN 01/30/17 Acetaminophen [Acetaminophen Extra Stren] 1,000 mg PO BID 01/30/17 Cholecalciferol [Vitamin D3] 50,000 unit PO MONTHLY 01/30/17 EPINEPHrine [Epipen 2-David] 0.3 mg IM ONCE PRN 01/30/17 Escitalopram (NF) [Lexapro 10 mg (NF)] 10 mg PO DAILY 01/30/17 HydroxyUREA CAP* [Hydrea CAP*] 500 mg PO DAILY 01/30/17 Levothyroxine TAB* [Synthroid 125 MCG TAB*] 125 mcg PO DAILY 01/30/17 Methyl Salicylate/Menth/Camph [Bengay Ultra Strength Cream] 1 patch TOPICAL DAILY PRN 01/30/17 Metoprolol Succinate XL TAB* [Toprol XL TAB*] 50 mg PO DAILY 01/30/17 Omeprazole CAP* [Prilosec CAP* 20 MG] 20 mg PO DAILY 01/30/17 Polyethylene Glycol 3350* [Miralax*] 17 gm PO DAILY PRN 01/30/17 Senna TAB* [Senokot TAB*] 1 - 2 tab PO BEDTIME PRN 01/30/17 traMADol TAB* [Ultram*] 25 mg PO TID PRN 01/30/17 Acetaminophen TAB* [Tylenol TAB*] 975 mg PO Q6H tab 02/02/17 Amoxicillin/Clavulanate TAB* [Augmentin TAB 500 mg*] 500 mg PO BID 7 Days #14 tab 02/02/17 Lidocaine PATCH 5%* [Lidoderm 5% Patch*] 1 patch TRANSDERM DAILY PRN 14 Days #5 patch 02/02/17 Allergies MS Bee Venom [Bee Venom] Allergy (Verified 12/16/16 22:43) Anaphylatic Shock MS Iodinated Diagnostic Agents [Iodinated Diagnostic Agents] Allergy (Verified 02/03/17 11:03) Hives MS Sulfa Antibiotics [Sulfa Antibiotics] Allergy (Verified 12/16/16 22:43) Rash IODINE/IVP DYE Allergy (Uncoded 12/16/16 22:43) Hives THALLIUM Allergy (Uncoded 12/16/16 22:43) Hives PSurgHx pacer placement L1 kyphoplasty hysterectomy SocHx: former smoker, no alcohol or recreational drugs; lives with her ; full code status FamHx: positive for CVA, HTN, DM, breast CA, COPD ROS: as above, otherwise reviewed and all were negative vitals: Vital Signs Temp 36.6 C 03/24/17 22:14 Pulse 99 03/25/17 00:14 Resp 20 03/25/17 00:14 BP 104/58 03/25/17 00:14 Pulse Ox 97 03/25/17 00:14 Intake & Output 03/24/17 03/24/17 03/25/17 11:59 23:59 11:59 Weight 63.503 kg Constitutional: NAD, normally developed, well-nourished elderly white female HEENM: atraumatic; sclera/conjunctiva: anicteric/clear; hearing: clinically mildly decreased; oropharynx: clear, mucosa tacky Neck: soft tissue: non-tender, no nuchal rigidity; thyroid: non-tender Pulmonary: clear to auscultation bilaterally, good aeration, no accessory muscle use CV: RR/RR, normal S1S2, no carotid bruit, no jugular venous distention, 2+ B DP/ PT, no edema Abdominal: soft, non-distended, non-tender, no rebound/guarding/rigidity, normoactive bowel sounds, no hepatosplenomegaly or masses, no costovertebral angle tenderness Musculoskeletal: general: grossly intact w/o tenderness on palpation Integumental: normal appearance and texture of exposed skin Psychiatric orientation: oriented to person only, when asked where she was replies, "[place]" affect: calm mood: cooperative eye contact: fair content: unreliable memory: impaired responses: mildly slowed insight: poor Testing: Lab Results 03/24/17 03/24/17 03/24/17 Range/Units 22:10 22:10 22:10 WBC 10.8 (3.5-10.8) 10^3/ul RBC 5.51 H (4.0-5.4) 10^6/ul Hgb 14.1 (12.0-16.0) g/dl Hct 44 (35-47) % MCV 80 (80-97) fL MCH 26 L (27-31) pg MCHC 32 (31-36) g/dl RDW 21 H (10.5-15) % Plt Count 276 (150-450) 10^3/ul MPV 7 L (7.4-10.4) um3 Neut % (Auto) 88.1 H (38-83) % Lymph % (Auto) 4.0 L (25-47) % [place] % (Auto) 7.8 (1-9) % Eos % (Auto) 0 (0-6) % Baso % (Auto) 0.1 (0-2) % Absolute Neuts (auto) 9.5 H (1.5-7.7) 10^3/ul Absolute Lymphs (auto) 0.4 L (1.0-4.8) 10^3/ul Absolute Monos (auto) 0.8 (0-0.8) 10^3/ul Absolute Eos (auto) 0 (0-0.6) 10^3/ul Absolute Basos (auto) 0 (0-0.2) 10^3/ul Absolute Nucleated RBC 0 10^3/ul Nucleated RBC % 0 INR (Anticoag Therapy) 1.50 H (0.77-1.02) APTT 43.9 H (26.0-36.3) seconds Sodium 131 L (133-145) mmol/L Potassium 5.0 (3.5-5.0) mmol/L Chloride 96 L (101-111) mmol/L Carbon Dioxide 28 (22-32) mmol/L Anion Gap 7 (2-11) mmol/L BUN 31 H (6-24) mg/dL Creatinine 0.82 (0.51-0.95) mg/dL Est GFR ( Amer) 85.2 (>60) Est GFR (Non-Af Amer) 66.3 (>60) BUN/Creatinine Ratio 37.8 H (8-20) Glucose 153 H (70-100) mg/dL Lactic Acid (0.5-2.0) mmol/L Calcium 9.0 (8.6-10.3) mg/dL Total Bilirubin 0.70 (0.2-1.0) mg/dL AST 11 L (13-39) U/L ALT 9 (7-52) U/L Alkaline Phosphatase 64 (34-104) U/L Troponin I 0.01 (<0.04) ng/mL C-Reactive Protein 41.22 H (< 5.00) mg/L B-Natriuretic Peptide ( - 100) pg/mL Total Protein 7.1 (6.4-8.9) g/dL Albumin 3.5 (3.2-5.2) g/dL Globulin 3.6 (2-4) g/dL Albumin/Globulin Ratio 1.0 (1-3) Urine Color Urine Appearance Urine pH (5-9) Ur Specific [place] (1.010-1.030) Urine Protein (Negative) Urine Ketones (Negative) Urine Blood (Negative) Urine Nitrate (Negative) Urine Bilirubin (Negative) Urine Urobilinogen (Negative) Ur Leukocyte Esterase (Negative) Urine WBC (Auto) (Absent) Urine RBC (Auto) (Absent) Ur Squamous Epith Cells (Absent) Urine Bacteria (Absent) Urine Glucose (Negative) Influenza A (Rapid) (Negative) Influenza B (Rapid) (Negative) 03/24/17 03/24/17 03/24/17 Range/Units 22:10 22:10 22:22 WBC (3.5-10.8) 10^3/ul RBC (4.0-5.4) 10^6/ul Hgb (12.0-16.0) g/dl Hct (35-47) % MCV (80-97) fL MCH (27-31) pg MCHC (31-36) g/dl RDW (10.5-15) % Plt Count (150-450) 10^3/ul MPV (7.4-10.4) um3 Neut % (Auto) (38-83) % Lymph % (Auto) (25-47) % [place] % (Auto) (1-9) % Eos % (Auto) (0-6) % Baso % (Auto) (0-2) % Absolute Neuts (auto) (1.5-7.7) 10^3/ul Absolute Lymphs (auto) (1.0-4.8) 10^3/ul Absolute Monos (auto) (0-0.8) 10^3/ul Absolute Eos (auto) (0-0.6) 10^3/ul Absolute Basos (auto) (0-0.2) 10^3/ul Absolute Nucleated RBC 10^3/ul Nucleated RBC % INR (Anticoag Therapy) (0.77-1.02) APTT (26.0-36.3) seconds Sodium (133-145) mmol/L Potassium (3.5-5.0) mmol/L Chloride (101-111) mmol/L Carbon Dioxide (22-32) mmol/L Anion Gap (2-11) mmol/L BUN (6-24) mg/dL Creatinine (0.51-0.95) mg/dL Est GFR ( Amer) (>60) Est GFR (Non-Af Amer) (>60) BUN/Creatinine Ratio (8-20) Glucose (70-100) mg/dL Lactic Acid 1.5 (0.5-2.0) mmol/L Calcium (8.6-10.3) mg/dL Total Bilirubin (0.2-1.0) mg/dL AST (13-39) U/L ALT (7-52) U/L Alkaline Phosphatase (34-104) U/L Troponin I (<0.04) ng/mL C-Reactive Protein (< 5.00) mg/L B-Natriuretic Peptide 162 H ( - 100) pg/mL Total Protein (6.4-8.9) g/dL Albumin (3.2-5.2) g/dL Globulin (2-4) g/dL Albumin/Globulin Ratio (1-3) Urine Color Urine Appearance Urine pH (5-9) Ur Specific [place] (1.010-1.030) Urine Protein (Negative) Urine Ketones (Negative) Urine Blood (Negative) Urine Nitrate (Negative) Urine Bilirubin (Negative) Urine Urobilinogen (Negative) Ur Leukocyte Esterase (Negative) Urine WBC (Auto) (Absent) Urine RBC (Auto) (Absent) Ur Squamous Epith Cells (Absent) Urine Bacteria (Absent) Urine Glucose (Negative) Influenza A (Rapid) Negative (Negative) Influenza B (Rapid) Negative (Negative) 03/24/17 Range/Units 23:48 WBC (3.5-10.8) 10^3/ul RBC (4.0-5.4) 10^6/ul Hgb (12.0-16.0) g/dl Hct (35-47) % MCV (80-97) fL MCH (27-31) pg MCHC (31-36) g/dl RDW (10.5-15) % Plt Count (150-450) 10^3/ul MPV (7.4-10.4) um3 Neut % (Auto) (38-83) % Lymph % (Auto) (25-47) % [place] % (Auto) (1-9) % Eos % (Auto) (0-6) % Baso % (Auto) (0-2) % Absolute Neuts (auto) (1.5-7.7) 10^3/ul Absolute Lymphs (auto) (1.0-4.8) 10^3/ul Absolute Monos (auto) (0-0.8) 10^3/ul Absolute Eos (auto) (0-0.6) 10^3/ul Absolute Basos (auto) (0-0.2) 10^3/ul Absolute Nucleated RBC 10^3/ul Nucleated RBC % INR (Anticoag Therapy) (0.77-1.02) APTT (26.0-36.3) seconds Sodium (133-145) mmol/L Potassium (3.5-5.0) mmol/L Chloride (101-111) mmol/L Carbon Dioxide (22-32) mmol/L Anion Gap (2-11) mmol/L BUN (6-24) mg/dL Creatinine (0.51-0.95) mg/dL Est GFR ( Amer) (>60) Est GFR (Non-Af Amer) (>60) BUN/Creatinine Ratio (8-20) Glucose (70-100) mg/dL Lactic Acid (0.5-2.0) mmol/L Calcium (8.6-10.3) mg/dL Total Bilirubin (0.2-1.0) mg/dL AST (13-39) U/L ALT (7-52) U/L Alkaline Phosphatase (34-104) U/L Troponin I (<0.04) ng/mL C-Reactive Protein (< 5.00) mg/L B-Natriuretic Peptide ( - 100) pg/mL Total Protein (6.4-8.9) g/dL Albumin (3.2-5.2) g/dL Globulin (2-4) g/dL Albumin/Globulin Ratio (1-3) Urine Color [place] Urine Appearance Cloudy Urine pH 5.0 (5-9) Ur Specific [place] 1.021 (1.010-1.030) Urine Protein 1+(30 mg/dl) H (Negative) Urine Ketones Negative (Negative) Urine Blood 1+ H (Negative) Urine Nitrate Negative (Negative) Urine Bilirubin Negative (Negative) Urine Urobilinogen Negative (Negative) Ur Leukocyte Esterase Negative (Negative) Urine WBC (Auto) Absent (Absent) Urine RBC (Auto) 1+(3-5/hpf) H (Absent) Ur Squamous Epith Cells Present H (Absent) Urine Bacteria Absent (Absent) Urine Glucose Negative (Negative) Influenza A (Rapid) (Negative) Influenza B (Rapid) (Negative) ECG, personally reviewed: atrially paced rate 100, no ischemia CXR, personally reviewed: poor inspiration, no definitive acute findings CT brain WO, personally reviewed: IMPRESSION: No intracranial mass or bleed. Chronic appearing involutional changes of aging. Impression: 86F presenting with confusion improved in ED after IVFs, but not resolved DIAGNOSIS & PLAN Primary AMS/confusion : suspect dehydration : IVFs : trend labs : supportive care Secondary AFIB : review meds once reconciled HTN : review meds once reconciled HLD : review meds once reconciled polycythemia vera : no acute issues hypothyroidism : review meds once reconciled migraine : review meds once reconciled depression/anxiety : review meds once reconciled Admission Rational: observation for confusion suspected 2nd dehydration DVTp: dabigatran Code Status: full HCP: son
[2017-03-25] MEDS ORDERED: Acetaminophen TAB* 325 MG PO PRN (06:25)
[2017-03-25] MEDS ORDERED: Albuterol 2.5 MG/3 ML NEB.SOL* (0.083%) INH PRN (06:26)
[2017-03-25] MEDS ORDERED: CMCS: Melatonin (NF) 3 MG TAB PO PRN (06:27)
[2017-03-25] MEDS ORDERED: traMADol TAB* 50 MG PO PRN (06:27)
[2017-03-25] MEDS ORDERED: Lidocaine PATCH 5%* 1 PATCH TRANSDERM PRN (06:27)
[2017-03-25 08:20] LABS: ABS Basophils 0 10^3/ul (0-0.2); ABS Eosinophils 0 10^3/ul (0-0.6); ABS Lymphocytes 0.4 10^3/ul (1.0-4.8); ABS Monocytes 0.4 10^3/ul (0-0.8); ABS Neutrophils 7.6 10^3/ul (1.5-7.7); ABS Nucleated RBC 0 10^3/ul; Eosinophil % 0 % (0-6); Hematocrit 38 % (35-47); Hemoglobin 12.1 g/dl (12.0-16.0); Lymphocyte % 4.5 % (25-47); Mean Corpuscular HGB Conc 32 g/dl (31-36); Mean Corpuscular Hemoglobin 25 pg (27-31); Mean Corpuscular Volume 80 fL (80-97); Mean Platelet Volume 7 um3 (7.4-10.4); Nucleated Red Blood Cells % 0; Platelet Count 255 10^3/ul (150-450); Red Blood Count 4.75 10^6/ul (4.0-5.4); Red Cell Distribution Width 21 % (10.5-15); White Blood Count 8.4 10^3/ul (3.5-10.8)
[2017-03-25 08:24] LABS: EGFR Non-African American 102.9 (>60)
[2017-03-25] MEDS ORDERED: Citalopram TAB* 20 MG PO SCH (09:00)
--- NOTE | 2017-03-25 09:12 | RAD ---
INDICATION: Altered mental status COMPARISON: Most recent comparison chest x-rays January 30, 2017 TECHNIQUE: Single AP portable view of the chest was obtained. FINDINGS: Image quality is compromised due to the relative inferiority of a portable chest x-ray. The left upper chest cardiac is regular with 2 leads overlying the heart is unchanged in position. The heart and mediastinum exhibit normal size and contour. The lungs are grossly clear. There is no evidence of a large pleural effusion. Visualized bones are normal for the patient's age. IMPRESSION: No radiographic evidence for acute cardiopulmonary abnormality on this portable chest x-ray.
[2017-03-25] MEDS ORDERED: NS 0.9% 1000 ML* 1,000 ML IV SCH (09:15)
[2017-03-25] MEDS: Docusate CAP* 100 MG PO SCH ×2 (09:22→20:45)
[2017-03-25] MEDS: HydroxyUREA CAP* 500 MG CAP PO SCH (09:23)
[2017-03-25] MEDS: Aspirin EC Low Dose* 81 MG TAB.EC PO SCH (09:23)
[2017-03-25] MEDS: Metoprolol Succinate XL TAB* 50 MG PO SCH (09:23)
[2017-03-25] MEDS: Levothyroxine TAB* 125 MCG TAB PO SCH (09:23)
[2017-03-25] MEDS: Omeprazole CAP* 20 MG PO SCH (09:23)
[2017-03-25] MEDS: CMCS: Dabigatran CAP(NF) 75 MG CAP PO SCH ×2 (09:23→20:45)
[2017-03-25] MEDS: Dofetilide CAP* 250 MCG PO SCH ×2 (09:23→20:45)
--- NOTE | 2017-03-25 10:03 | RAD ---
INDICATION: Altered mental status x2-3 days COMPARISON: Most recent comparison CT of the brain is dated December 16, 2016 TECHNIQUE: Contiguous axial sections of the brain were obtained from the skull base to the vertex without contrast. FINDINGS: Patient motion limits image quality. The ventricles, cisterns and sulci exhibit age-appropriate and symmetrical involutional changes similar to the previous CT dated December 16, 2016. There is mild periventricular and subcortical white matter hypoattenuation most consistent with chronic microvascular disease. The calderon-white matter differentiation is adequately maintained and there is no sulcal effacement. No significant focal abnormality or mass effect is present. There is no evidence for intracranial hemorrhage. A stable partially calcified subcutaneous granuloma is noted overlying the left frontal bone. No significant focal osseous abnormality is present. The visualized portion of the paranasal sinuses appear clear. The mastoid air cells are well aerated bilaterally. IMPRESSION: Chronic age-appropriate findings as described above without definite acute intracranial process identified.
--- NOTE | 2017-03-25 10:27 | PN ---
Subjective Date of Service: 03/25/17 Interval History: Pt was apparently minimally responsive when presented from [facility], at baseline oriented and forgetful as per reports. started on Macrodantin (for ESBL E. coli) and Remeron (on 03/14/17 for appetite stimulation).Today she states that she feels "bad" but cannot elaborate. C/o no pain Objective Active Medications: Acetaminophen (Tylenol Tab*) 650 mg PO Q6H PRN PRN Reason: FEVER/PAIN Albuterol (Ventolin 2.5 Mg/3 Ml Neb.Selma*) 2.5 mg INH Q2H PRN PRN Reason: SOB/WHEEZING Aspirin (Aspirin Ec Low Dose*) 81 mg PO QAM [facility] Last Admin: 03/25/17 09:23 Dose: 81 mg Citalopram Hydrobromide (Celexa Tab*) 20 mg PO DAILY [facility] Last Admin: 03/25/17 09:22 Dose: 20 mg Dabigatran (Pradaxa Cap(Nf)) 75 mg PO BID [facility] Last Admin: 03/25/17 09:23 Dose: 75 mg Docusate Sodium (Colace Cap*) 200 mg PO BID [facility] Last Admin: 03/25/17 09:22 Dose: 200 mg Dofetilide (Tikosyn Cap*) 250 mcg PO 0800,2000 [facility] Last Admin: 03/25/17 09:23 Dose: 250 mcg Hydroxyurea (Hydrea Cap*) 500 mg PO DAILY [facility] Last Admin: 03/25/17 09:23 Dose: 500 mg Sodium Chloride (Ns 0.9% 1000 Ml*) 1,000 mls @ 75 mls/hr IV PER RATE [facility] Levothyroxine Sodium (Synthroid Tab*) 125 mcg PO DAILY@0600 [facility] Last Admin: 03/25/17 09:23 Dose: 125 mcg Lidocaine (Lidoderm 5% Patch*) 1 patch TRANSDERM DAILY PRN PRN Reason: PAIN Last Admin: 03/25/17 09:21 Dose: 1 patch Melatonin (Melatonin (Nf)) 3 mg PO BEDTIME PRN; Protocol PRN Reason: Sleep Metoprolol Succinate (Toprol Xl Tab*) 50 mg PO DAILY [facility] Last Admin: 03/25/17 09:23 Dose: 50 mg Omeprazole (Prilosec Cap*) 20 mg PO DAILY [facility] Last Admin: 03/25/17 09:23 Dose: 20 mg Pharmacy Profile Note (Lidocaine Patch Remove*) 1 note PATCH OFF [address] Tramadol HCl (Ultram*) 25 mg PO TID PRN PRN Reason: PAIN Last Admin: 03/25/17 09:22 Dose: 25 mg Vital Signs - 8 hr 03/25/17 09:22 Respiratory 16 Rate Oxygen Devices in Use Now: None Appearance: 86 yo F in nAD, oriented to self only Eyes: No Scleral Icterus, PERRLA Ears/Nose/Mouth/Throat: NL Teeth, Lips, Gums, Mucous Membranes Moist Neck: NL Appearance and Movements; NL JVP, Trachea Midline Respiratory: Symmetrical Chest Expansion and Respiratory Effort, Clear to Auscultation Cardiovascular: NL Sounds; No Murmurs; No JVD, RRR Abdominal: NL Sounds; No Tenderness; No Distention, No Hepatosplenomegaly Lymphatic: No Cervical Adenopathy Extremities: No Edema, No Clubbing, Cyanosis Skin: No Rash or Ulcers, No Nodules or Sclerosis Neurological: NL Muscle Strength and Tone, - - chorea like movements noted inall extremities, speech clear, no focal deficit Result Diagrams: 03/25/17 07:48 03/25/17 07:48 Additional Lab and Data: Lab Results 03/24/17 03/24/17 03/24/17 Range/Units 22:10 22:10 22:10 WBC 10.8 (3.5-10.8) 10^3/ul RBC 5.51 H (4.0-5.4) 10^6/ul Hgb 14.1 (12.0-16.0) g/dl Hct 44 (35-47) % MCV 80 (80-97) fL MCH 26 L (27-31) pg MCHC 32 (31-36) g/dl RDW 21 H (10.5-15) % Plt Count 276 (150-450) 10^3/ul MPV 7 L (7.4-10.4) um3 Neut % (Auto) 88.1 H (38-83) % Lymph % (Auto) 4.0 L (25-47) % [place] % (Auto) 7.8 (1-9) % Eos % (Auto) 0 (0-6) % Baso % (Auto) 0.1 (0-2) % Absolute Neuts (auto) 9.5 H (1.5-7.7) 10^3/ul Absolute Lymphs (auto) 0.4 L (1.0-4.8) 10^3/ul Absolute Monos (auto) 0.8 (0-0.8) 10^3/ul Absolute Eos (auto) 0 (0-0.6) 10^3/ul Absolute Basos (auto) 0 (0-0.2) 10^3/ul Absolute Nucleated RBC 0 10^3/ul Nucleated RBC % 0 INR (Anticoag Therapy) 1.50 H (0.77-1.02) APTT 43.9 H (26.0-36.3) seconds Sodium 131 L (133-145) mmol/L Potassium 5.0 (3.5-5.0) mmol/L Chloride 96 L (101-111) mmol/L Carbon Dioxide 28 (22-32) mmol/L Anion Gap 7 (2-11) mmol/L BUN 31 H (6-24) mg/dL Creatinine 0.82 (0.51-0.95) mg/dL Est GFR ( Amer) 85.2 (>60) Est GFR (Non-Af Amer) 66.3 (>60) BUN/Creatinine Ratio 37.8 H (8-20) Glucose 153 H (70-100) mg/dL Lactic Acid (0.5-2.0) mmol/L Calcium 9.0 (8.6-10.3) mg/dL Total Bilirubin 0.70 (0.2-1.0) mg/dL AST 11 L (13-39) U/L ALT 9 (7-52) U/L Alkaline Phosphatase 64 (34-104) U/L Troponin I 0.01 (<0.04) ng/mL C-Reactive Protein 41.22 H (< 5.00) mg/L B-Natriuretic Peptide ( - 100) pg/mL Total Protein 7.1 (6.4-8.9) g/dL Albumin 3.5 (3.2-5.2) g/dL Globulin 3.6 (2-4) g/dL Albumin/Globulin Ratio 1.0 (1-3) Urine Color Urine Appearance Urine pH (5-9) Ur Specific [place] (1.010-1.030) Urine Protein (Negative) Urine Ketones (Negative) Urine Blood (Negative) Urine Nitrate (Negative) Urine Bilirubin (Negative) Urine Urobilinogen (Negative) Ur Leukocyte Esterase (Negative) Urine WBC (Auto) (Absent) Urine RBC (Auto) (Absent) Ur Squamous Epith Cells (Absent) Urine Bacteria (Absent) Urine Glucose (Negative) Influenza A (Rapid) (Negative) Influenza B (Rapid) (Negative) 03/24/17 03/24/17 03/24/17 Range/Units 22:10 22:10 22:22 WBC (3.5-10.8) 10^3/ul RBC (4.0-5.4) 10^6/ul Hgb (12.0-16.0) g/dl Hct (35-47) % MCV (80-97) fL MCH (27-31) pg MCHC (31-36) g/dl RDW (10.5-15) % Plt Count (150-450) 10^3/ul MPV (7.4-10.4) um3 Neut % (Auto) (38-83) % Lymph % (Auto) (25-47) % [place] % (Auto) (1-9) % Eos % (Auto) (0-6) % Baso % (Auto) (0-2) % Absolute Neuts (auto) (1.5-7.7) 10^3/ul Absolute Lymphs (auto) (1.0-4.8) 10^3/ul Absolute Monos (auto) (0-0.8) 10^3/ul Absolute Eos (auto) (0-0.6) 10^3/ul Absolute Basos (auto) (0-0.2) 10^3/ul Absolute Nucleated RBC 10^3/ul Nucleated RBC % INR (Anticoag Therapy) (0.77-1.02) APTT (26.0-36.3) seconds Sodium (133-145) mmol/L Potassium (3.5-5.0) mmol/L Chloride (101-111) mmol/L Carbon Dioxide (22-32) mmol/L Anion Gap (2-11) mmol/L BUN (6-24) mg/dL Creatinine (0.51-0.95) mg/dL Est GFR ( Amer) (>60) Est GFR (Non-Af Amer) (>60) BUN/Creatinine Ratio (8-20) Glucose (70-100) mg/dL Lactic Acid 1.5 (0.5-2.0) mmol/L Calcium (8.6-10.3) mg/dL Total Bilirubin (0.2-1.0) mg/dL AST (13-39) U/L ALT (7-52) U/L Alkaline Phosphatase (34-104) U/L Troponin I (<0.04) ng/mL C-Reactive Protein (< 5.00) mg/L B-Natriuretic Peptide 162 H ( - 100) pg/mL Total Protein (6.4-8.9) g/dL Albumin (3.2-5.2) g/dL Globulin (2-4) g/dL Albumin/Globulin Ratio (1-3) Urine Color Urine Appearance Urine pH (5-9) Ur Specific [place] (1.010-1.030) Urine Protein (Negative) Urine Ketones (Negative) Urine Blood (Negative) Urine Nitrate (Negative) Urine Bilirubin (Negative) Urine Urobilinogen (Negative) Ur Leukocyte Esterase (Negative) Urine WBC (Auto) (Absent) Urine RBC (Auto) (Absent) Ur Squamous Epith Cells (Absent) Urine Bacteria (Absent) Urine Glucose (Negative) Influenza A (Rapid) Negative (Negative) Influenza B (Rapid) Negative (Negative) 03/24/17 Range/Units 23:48 WBC (3.5-10.8) 10^3/ul RBC (4.0-5.4) 10^6/ul Hgb (12.0-16.0) g/dl Hct (35-47) % MCV (80-97) fL MCH (27-31) pg MCHC (31-36) g/dl RDW (10.5-15) % Plt Count (150-450) 10^3/ul MPV (7.4-10.4) um3 Neut % (Auto) (38-83) % Lymph % (Auto) (25-47) % [place] % (Auto) (1-9) % Eos % (Auto) (0-6) % Baso % (Auto) (0-2) % Absolute Neuts (auto) (1.5-7.7) 10^3/ul Absolute Lymphs (auto) (1.0-4.8) 10^3/ul Absolute Monos (auto) (0-0.8) 10^3/ul Absolute Eos (auto) (0-0.6) 10^3/ul Absolute Basos (auto) (0-0.2) 10^3/ul Absolute Nucleated RBC 10^3/ul Nucleated RBC % INR (Anticoag Therapy) (0.77-1.02) APTT (26.0-36.3) seconds Sodium (133-145) mmol/L Potassium (3.5-5.0) mmol/L Chloride (101-111) mmol/L Carbon Dioxide (22-32) mmol/L Anion Gap (2-11) mmol/L BUN (6-24) mg/dL Creatinine (0.51-0.95) mg/dL Est GFR ( Amer) (>60) Est GFR (Non-Af Amer) (>60) BUN/Creatinine Ratio (8-20) Glucose (70-100) mg/dL Lactic Acid (0.5-2.0) mmol/L Calcium (8.6-10.3) mg/dL Total Bilirubin (0.2-1.0) mg/dL AST (13-39) U/L ALT (7-52) U/L Alkaline Phosphatase (34-104) U/L Troponin I (<0.04) ng/mL C-Reactive Protein (< 5.00) mg/L B-Natriuretic Peptide ( - 100) pg/mL Total Protein (6.4-8.9) g/dL Albumin (3.2-5.2) g/dL Globulin (2-4) g/dL Albumin/Globulin Ratio (1-3) Urine Color [place] Urine Appearance Cloudy Urine pH 5.0 (5-9) Ur Specific [place] 1.021 (1.010-1.030) Urine Protein 1+(30 mg/dl) H (Negative) Urine Ketones Negative (Negative) Urine Blood 1+ H (Negative) Urine Nitrate Negative (Negative) Urine Bilirubin Negative (Negative) Urine Urobilinogen Negative (Negative) Ur Leukocyte Esterase Negative (Negative) Urine WBC (Auto) Absent (Absent) Urine RBC (Auto) 1+(3-5/hpf) H (Absent) Ur Squamous Epith Cells Present H (Absent) Urine Bacteria Absent (Absent) Urine Glucose Negative (Negative) Influenza A (Rapid) (Negative) Influenza B (Rapid) (Negative) Microbiology and Other Data: Microbiology 03/25/17 02:27 Nasal Screen MRSA (PCR)(ANDRES) - Final Nasal Mrsa Detected Assess/Plan/Problems-Billing Assessment: 86 yo f with h/o vertebral fractures, a. fib (on tikosyn and Pradaxa ), pacer, polycythemia vera( on hydroxyurea), ESBL E. coli (on nitrofurantoin recently) presents with lethargy, worsening confusion and now chorea like movements. - Patient Problems (1) Chorea Comment: pt appears to have chorea like movement sin all extremities. D/w DR. Lemons-possibly due to Remeron (started on 03/14/17 for appetitie), also macrodantin could have neurotoxic effects. Neuro consulted (2) Depression Comment: Continue Celxa (3) Atrial fibrillation Comment: in paced rhythm Continue Tikosyn, Metoprolol and Pradaxa (4) Compression fracture of L1 lumbar vertebra Comment: - This is an old fx in the past treated with kyphoplasty, stable (5) Compression fracture of thoracic vertebra Comment: Zustaiuned in 01/2018 fx of T3, T4 and mild progression of T7. Pt is currenlty at [facility] for PT/OT Pain control with tylenol and PRN Tramadol (6) Dehydration Comment: Wilian gotten >2000 ml of IVF, now appears euvolemic, will stop IVF (7) Polycythemia vera Comment: Continue hydroxyurea. Followed by Dr. Hall. (8) History of ESBL E. coli infection Comment: treated with Macrodantin. UA shows no bacteria now. will await cx. Macrodantin held (9) DVT prophylaxis Comment: - Already on Pradaxa Status and Disposition: OBV
[2017-03-25] MEDS: Lidocaine Patch REMOVE* 1 NOTE MISC PATCH OFF SCH (20:46)
--- NOTE | 2017-03-25 22:33 | CONS ---
CC: Dr. Sim * NEUROLOGY CONSULTATION: DATE OF CONSULTATION: 03/25/17 REFERRING PROVIDER: Dr. Moralez. LOCATION: She is inpatient in room 406. CHIEF COMPLAINT: Involuntary movements, mental status changes. HISTORY OF PRESENT ILLNESS: Herbie Gallardo is an 86-year-old woman currently residing at [facility] after a fall with multiple compression fractures this past January. Her son is present, provides history. She had been declining, particularly in the last week or so and became lethargic and more confused than usual and so she was brought to the hospital yesterday and admitted late last night. She had been not eating and drinking very much for several weeks according to her son. Remeron was recently started to try to stimulate her appetite. In addition, she was not complying with her rehabilitation and would not wear her back brace, which she states was very painful. She has not really been participating in rehab and son said the last time that he saw her actually stand was perhaps 10 days or more ago. He just received a letter that she has been discharged from the rehab program because of lack of participation. She has had declining memory and confusion for at least 6 to 12 months. She has also exhibited involuntary movements for at least 6 to 9 months. When asked if she feels restless, she states "all the time." She denies muscle pain or spasm or jaw or throat pain or tightness. No problems swallowing. There is no history of antipsychotic or antiemetic drug use. Before she fell and had the fractures, they were having problems with controlling her use of opioids. They transitioned her to tramadol about a year or so ago. She was having a hard time staying away from stronger opioid analgesics. She was recently treated for urinary tract infection and prior to that for pneumonia. She has chronic pain from thoracic compression fractures even before January and had a kyphoplasty and was also admitted with a fall back in last July. PAST MEDICAL HISTORY: Notable for polycythemia vera diagnosed in 2010. She had splenomegaly and elevated white blood cell count, red blood cell count and platelets. She has been treated with hydroxyurea chronically. She has a history of hypothyroidism, hyperlipidemia, hypertension, chronic atrial fibrillation on anticoagulation, pacemaker placement, depression, irritable bowel syndrome, diverticular disease. MEDICATIONS: At [facility] consist of: 1. Tramadol 25 mg p.o. q.6 hours p.r.n. pain. 2. Pradaxa 75 mg p.o. b.i.d. 3. Tikosyn 250 mcg p.o. b.i.d. 4. Metoprolol ER 50 mg p.o. daily. 5. Mirtazapine 7.5 mg p.o. q.h.s. 6. Zantac 300 mg p.o. q.h.s. 7. Citalopram 20 mg p.o. daily. 8. Ferrous sulfate 325 mg p.o. daily. 9. Hydroxyurea 500 mg p.o. 1 daily. 10. Levothyroxine 125 mcg 1 p.o. daily. ALLERGIES: She is allergic to BEE VENOM, IODINATED CONTRAST DYES, SULFA DRUGS. REVIEW OF SYSTEMS: Negative for headaches, she has had multiple falls, she has not been eating or drinking, she denies muscle pain or muscle spasms, no jaw pain or neck tightness. She states she is restless all the time. She has been losing weight. No shortness of breath or chest pain. She has chronic back pain. No history of antiemetic exposure or antipsychotic exposure. No history of head trauma, stroke, or epilepsy. She is a retired nurse, ex-smoker, no alcohol abuse history. PHYSICAL EXAMINATION: She is thin and pale, lying in her hospital bed. Most recent temperature 99.3 orally, blood pressure is running just around 100/50-80 , pulse is in the 90s and irregular. Respiratory rate 16, oxygen saturation 95 % on room air. Skin is dry and pale and warm. I do not see any rashes. Neck is supple. Heart is in an irregular rhythm without murmurs heard. Carotid pulses are present and there are no cervical bruits. Oral mucosa is somewhat dry. Neurological Exam: Pupils react equally from 3 to 2 mm. Funduscopic exam reveals possible venous engorgement bilaterally, but no hemorrhages. Eye movements are full and without nystagmus. Visual lira are full to confrontation. Facial musculature is symmetric. Facial sensation to light touch is symmetric. Speech is mildly dysarthric, but tongue protrudes in the midline and palate rises symmetrically. Hearing is intact. Motor exam reveals diffuse, mainly proximal weakness. It is present fairly symmetrically in upper and lower extremities. She is able to hold both legs off the bed and she has pretty good distal strength in her lower extremities, but she has intrinsic hand muscle weakness as well. Sensory exam is notable for intact to light touch and vibration. Reflexes are hypoactive in the upper extremities, in the arms and knees and ankles. Plantar responses are flexor bilaterally. She has frequent dyskinesias. Mostly, she appears to have mainly a dystonic pattern with flexion at the ankles and toes and occasional extension of the arms. She has more athetoid dyskinesias of the face and neck. There are also some athetoid dyskinesias in the proximal upper extremities. Muscle tone is normal, however. Finger taps are slow and of low amplitude bilaterally. There is no rest tremor. She is oriented to person, but not place, believing she is at [facility]. Attention and concentration are very poor and she is somewhat lethargic. Language is generally fluent. DIAGNOSTIC STUDIES/LAB DATA: Includes a CT of the brain, which I reviewed and reveals chronic atrophy, but I do not see any discrete infarcts or hemorrhages. CBC notable for white blood cell count 8.4, hemoglobin 12.1, MCV 80, platelet count 255,000. INR is elevated at 1.5 and PTT at 43.9 yesterday. Chemistry profile is unremarkable, BUN 27 today and 31 when she came in last night. Glucose 153 last night and 118 this morning. Calcium is a little low at 8.5 with an albumin of 3.5. CRP is elevated at 41.2. Urinalysis from yesterday is notable for 1+ protein, 1+ blood, negative nitrite and leukocyte esterase. No white blood cells or bacteria seen. IMPRESSION: Akathisia and diffuse dyskinesia suggestive of toxic metabolic process. For medications, I do not see anything that she has clearly been exposed to that would cause her akathisia and dyskinesias. I am suspicious that she may have a hyperviscosity syndrome or other hematological or autoimmune etiology to her cognitive and motor decline. Of the medications she is on, citalopram and tramadol could potentially cause serotonin like syndrome as could Remeron, but the Remeron was just started. I have cut back the citalopram to 10 mg as she is losing weight and she is on multiple medicines, which could prolong QT interval. I have ordered a number of laboratory studies to look for metabolic disorders, which could cause her cognitive decline and movement disorder. She might benefit from an anticholinergic for her akathisia and movement disorder, but I do not want to start anything until I get her laboratory studies back. I have discussed my concerns with her son who provided very valuable history and I will continue to follow her. [id number]/[facility] #: [id number] DOLLY
[2017-03-26] MEDS: Levothyroxine TAB* 125 MCG TAB PO SCH (05:45)
[2017-03-26] MEDS ORDERED: Omeprazole CAP* 20 MG PO SCH (06:00)
[2017-03-26] MEDS: Metoprolol Succinate XL TAB* 50 MG PO SCH (07:55)
[2017-03-26] MEDS: CMCS: Dabigatran CAP(NF) 75 MG CAP PO SCH ×4 (07:55→20:49)
[2017-03-26] MEDS: Docusate CAP* 100 MG PO SCH ×2 (07:56→20:49)
[2017-03-26] MEDS: Citalopram TAB* 10 MG PO SCH (07:57)
[2017-03-26] MEDS: Omeprazole CAP* 20 MG PO SCH (07:57)
[2017-03-26] MEDS: Aspirin EC Low Dose* 81 MG TAB.EC PO SCH ×2 (07:57→08:05)
[2017-03-26] MEDS: HydroxyUREA CAP* 500 MG CAP PO SCH ×2 (07:57→14:17)
[2017-03-26] MEDS: Dofetilide CAP* 250 MCG PO SCH ×2 (07:58→20:49)
[2017-03-26] MEDS ORDERED: Cyanocobalamin INJ * 1,000 MCG/ML VIAL 1 ML VIAL IM ONE (13:25)
--- NOTE | 2017-03-26 17:43 | PN ---
Subjective Date of Service: 03/26/17 Interval History: Denies chest pain or shortness of breath. Denies abd pain, N/V/D. Family History: Unchanged from Admission Social History: Unchanged from Admission Past Medical History: Unchanged from Admission Objective Active Medications: Acetaminophen (Tylenol Tab*) 650 mg PO Q6H PRN PRN Reason: FEVER/PAIN Albuterol (Ventolin 2.5 Mg/3 Ml Neb.[place]*) 2.5 mg INH Q2H PRN PRN Reason: SOB/WHEEZING Aspirin (Aspirin Ec Low Dose*) 81 mg PO QAM [facility] Last Admin: 03/26/17 08:05 Dose: Not Given Citalopram Hydrobromide (Celexa Tab*) 10 mg PO DAILY [facility] Last Admin: 03/26/17 07:57 Dose: 10 mg Dabigatran (Pradaxa Cap(Nf)) 75 mg PO BID [facility] Last Admin: 03/26/17 07:58 Dose: 75 mg Docusate Sodium (Colace Cap*) 200 mg PO BID [facility] Last Admin: 03/26/17 07:56 Dose: 200 mg Dofetilide (Tikosyn Cap*) 250 mcg PO 0800,2000 [facility] Last Admin: 03/26/17 07:58 Dose: 250 mcg Hydroxyurea (Hydrea Cap*) 500 mg PO DAILY [facility] Last Admin: 03/26/17 14:17 Dose: 500 mg Levothyroxine Sodium (Synthroid Tab*) 125 mcg PO DAILY@0600 [facility] Last Admin: 03/26/17 05:45 Dose: 125 mcg Lidocaine (Lidoderm 5% Patch*) 1 patch TRANSDERM DAILY PRN PRN Reason: PAIN Last Admin: 03/25/17 09:21 Dose: 1 patch Melatonin (Melatonin (Nf)) 3 mg PO BEDTIME PRN; Protocol PRN Reason: Sleep Metoprolol Succinate (Toprol Xl Tab*) 50 mg PO DAILY [facility] Last Admin: 03/26/17 07:55 Dose: 50 mg Omeprazole (Prilosec Cap*) 20 mg PO DAILY [facility] Last Admin: 03/26/17 07:57 Dose: 20 mg Pharmacy Profile Note (Lidocaine Patch Remove*) 1 note PATCH OFF 2100 [facility] Last Admin: 03/25/17 20:46 Dose: 1 note Tramadol HCl (Ultram*) 25 mg PO TID PRN PRN Reason: PAIN Last Admin: 03/25/17 09:22 Dose: 25 mg Vital Signs - 8 hr 03/26/17 03/26/17 15:33 15:40 Temperature 97.9 F Pulse Rate 93 Respiratory 18 Rate Blood Pressure 93/57 92/58 (mmHg) O2 Sat by Pulse 95 Oximetry Oxygen Devices in Use Now: None Appearance: appears comfortable resting in bed Eyes: No Scleral Icterus Ears/Nose/Mouth/Throat: Clear Oropharnyx, Mucous Membranes Moist Neck: NL Appearance and Movements; NL JVP, Trachea Midline Respiratory: Symmetrical Chest Expansion and Respiratory Effort, Clear to Auscultation Cardiovascular: NL Sounds; No Murmurs; No JVD, No Edema Abdominal: NL Sounds; No Tenderness; No Distention Extremities: No Edema, No Clubbing, Cyanosis Neurological: - - confused to place and time, alert to person. involuntary movements of the arms and legs Nutrition: Taking PO's Result Diagrams: 03/27/17 08:13 03/27/17 06:40 Additional Lab and Data: Lab Results 03/24/17 03/24/17 03/24/17 Range/Units 22:10 22:10 22:10 WBC 10.8 (3.5-10.8) 10^3/ul RBC 5.51 H (4.0-5.4) 10^6/ul Hgb 14.1 (12.0-16.0) g/dl Hct 44 (35-47) % MCV 80 (80-97) fL MCH 26 L (27-31) pg MCHC 32 (31-36) g/dl RDW 21 H (10.5-15) % Plt Count 276 (150-450) 10^3/ul MPV 7 L (7.4-10.4) um3 Neut % (Auto) 88.1 H (38-83) % Lymph % (Auto) 4.0 L (25-47) % [place] % (Auto) 7.8 (1-9) % Eos % (Auto) 0 (0-6) % Baso % (Auto) 0.1 (0-2) % Absolute Neuts (auto) 9.5 H (1.5-7.7) 10^3/ul Absolute Lymphs (auto) 0.4 L (1.0-4.8) 10^3/ul Absolute Monos (auto) 0.8 (0-0.8) 10^3/ul Absolute Eos (auto) 0 (0-0.6) 10^3/ul Absolute Basos (auto) 0 (0-0.2) 10^3/ul Absolute Nucleated RBC 0 10^3/ul Nucleated RBC % 0 INR (Anticoag Therapy) 1.50 H (0.77-1.02) APTT 43.9 H (26.0-36.3) seconds Sodium 131 L (133-145) mmol/L Potassium 5.0 (3.5-5.0) mmol/L Chloride 96 L (101-111) mmol/L Carbon Dioxide 28 (22-32) mmol/L Anion Gap 7 (2-11) mmol/L BUN 31 H (6-24) mg/dL Creatinine 0.82 (0.51-0.95) mg/dL Est GFR ( Amer) 85.2 (>60) Est GFR (Non-Af Amer) 66.3 (>60) BUN/Creatinine Ratio 37.8 H (8-20) Glucose 153 H (70-100) mg/dL Lactic Acid (0.5-2.0) mmol/L Calcium 9.0 (8.6-10.3) mg/dL Total Bilirubin 0.70 (0.2-1.0) mg/dL AST 11 L (13-39) U/L ALT 9 (7-52) U/L Alkaline Phosphatase 64 (34-104) U/L Troponin I 0.01 (<0.04) ng/mL C-Reactive Protein 41.22 H (< 5.00) mg/L B-Natriuretic Peptide ( - 100) pg/mL Total Protein 7.1 (6.4-8.9) g/dL Albumin 3.5 (3.2-5.2) g/dL Globulin 3.6 (2-4) g/dL Albumin/Globulin Ratio 1.0 (1-3) Urine Color Urine Appearance Urine pH (5-9) Ur Specific [place] (1.010-1.030) Urine Protein (Negative) Urine Ketones (Negative) Urine Blood (Negative) Urine Nitrate (Negative) Urine Bilirubin (Negative) Urine Urobilinogen (Negative) Ur Leukocyte Esterase (Negative) Urine WBC (Auto) (Absent) Urine RBC (Auto) (Absent) Ur Squamous Epith Cells (Absent) Urine Bacteria (Absent) Urine Glucose (Negative) Influenza A (Rapid) (Negative) Influenza B (Rapid) (Negative) 03/24/17 03/24/17 03/24/17 Range/Units 22:10 22:10 22:22 WBC (3.5-10.8) 10^3/ul RBC (4.0-5.4) 10^6/ul Hgb (12.0-16.0) g/dl Hct (35-47) % MCV (80-97) fL MCH (27-31) pg MCHC (31-36) g/dl RDW (10.5-15) % Plt Count (150-450) 10^3/ul MPV (7.4-10.4) um3 Neut % (Auto) (38-83) % Lymph % (Auto) (25-47) % [place] % (Auto) (1-9) % Eos % (Auto) (0-6) % Baso % (Auto) (0-2) % Absolute Neuts (auto) (1.5-7.7) 10^3/ul Absolute Lymphs (auto) (1.0-4.8) 10^3/ul Absolute Monos (auto) (0-0.8) 10^3/ul Absolute Eos (auto) (0-0.6) 10^3/ul Absolute Basos (auto) (0-0.2) 10^3/ul Absolute Nucleated RBC 10^3/ul Nucleated RBC % INR (Anticoag Therapy) (0.77-1.02) APTT (26.0-36.3) seconds Sodium (133-145) mmol/L Potassium (3.5-5.0) mmol/L Chloride (101-111) mmol/L Carbon Dioxide (22-32) mmol/L Anion Gap (2-11) mmol/L BUN (6-24) mg/dL Creatinine (0.51-0.95) mg/dL Est GFR ( Amer) (>60) Est GFR (Non-Af Amer) (>60) BUN/Creatinine Ratio (8-20) Glucose (70-100) mg/dL Lactic Acid 1.5 (0.5-2.0) mmol/L Calcium (8.6-10.3) mg/dL Total Bilirubin (0.2-1.0) mg/dL AST (13-39) U/L ALT (7-52) U/L Alkaline Phosphatase (34-104) U/L Troponin I (<0.04) ng/mL C-Reactive Protein (< 5.00) mg/L B-Natriuretic Peptide 162 H ( - 100) pg/mL Total Protein (6.4-8.9) g/dL Albumin (3.2-5.2) g/dL Globulin (2-4) g/dL Albumin/Globulin Ratio (1-3) Urine Color Urine Appearance Urine pH (5-9) Ur Specific [place] (1.010-1.030) Urine Protein (Negative) Urine Ketones (Negative) Urine Blood (Negative) Urine Nitrate (Negative) Urine Bilirubin (Negative) Urine Urobilinogen (Negative) Ur Leukocyte Esterase (Negative) Urine WBC (Auto) (Absent) Urine RBC (Auto) (Absent) Ur Squamous Epith Cells (Absent) Urine Bacteria (Absent) Urine Glucose (Negative) Influenza A (Rapid) Negative (Negative) Influenza B (Rapid) Negative (Negative) 03/24/17 Range/Units 23:48 WBC (3.5-10.8) 10^3/ul RBC (4.0-5.4) 10^6/ul Hgb (12.0-16.0) g/dl Hct (35-47) % MCV (80-97) fL MCH (27-31) pg MCHC (31-36) g/dl RDW (10.5-15) % Plt Count (150-450) 10^3/ul MPV (7.4-10.4) um3 Neut % (Auto) (38-83) % Lymph % (Auto) (25-47) % [place] % (Auto) (1-9) % Eos % (Auto) (0-6) % Baso % (Auto) (0-2) % Absolute Neuts (auto) (1.5-7.7) 10^3/ul Absolute Lymphs (auto) (1.0-4.8) 10^3/ul Absolute Monos (auto) (0-0.8) 10^3/ul Absolute Eos (auto) (0-0.6) 10^3/ul Absolute Basos (auto) (0-0.2) 10^3/ul Absolute Nucleated RBC 10^3/ul Nucleated RBC % INR (Anticoag Therapy) (0.77-1.02) APTT (26.0-36.3) seconds Sodium (133-145) mmol/L Potassium (3.5-5.0) mmol/L Chloride (101-111) mmol/L Carbon Dioxide (22-32) mmol/L Anion Gap (2-11) mmol/L BUN (6-24) mg/dL Creatinine (0.51-0.95) mg/dL Est GFR ( Amer) (>60) Est GFR (Non-Af Amer) (>60) BUN/Creatinine Ratio (8-20) Glucose (70-100) mg/dL Lactic Acid (0.5-2.0) mmol/L Calcium (8.6-10.3) mg/dL Total Bilirubin (0.2-1.0) mg/dL AST (13-39) U/L ALT (7-52) U/L Alkaline Phosphatase (34-104) U/L Troponin I (<0.04) ng/mL C-Reactive Protein (< 5.00) mg/L B-Natriuretic Peptide ( - 100) pg/mL Total Protein (6.4-8.9) g/dL Albumin (3.2-5.2) g/dL Globulin (2-4) g/dL Albumin/Globulin Ratio (1-3) Urine Color [place] Urine Appearance Cloudy Urine pH 5.0 (5-9) Ur Specific [place] 1.021 (1.010-1.030) Urine Protein 1+(30 mg/dl) H (Negative) Urine Ketones Negative (Negative) Urine Blood 1+ H (Negative) Urine Nitrate Negative (Negative) Urine Bilirubin Negative (Negative) Urine Urobilinogen Negative (Negative) Ur Leukocyte Esterase Negative (Negative) Urine WBC (Auto) Absent (Absent) Urine RBC (Auto) 1+(3-5/hpf) H (Absent) Ur Squamous Epith Cells Present H (Absent) Urine Bacteria Absent (Absent) Urine Glucose Negative (Negative) Influenza A (Rapid) (Negative) Influenza B (Rapid) (Negative) Microbiology and Other Data: Microbiology 03/25/17 02:27 Nasal Screen MRSA (PCR)(ANDRES) - Final Nasal Mrsa Detected Assess/Plan/Problems-Billing Assessment: 86 yo f with h/o vertebral fractures, a. fib (on tikosyn and Pradaxa ), pacer, polycythemia vera( on hydroxyurea), ESBL E. coli (on nitrofurantoin recently) presents with lethargy, worsening confusion and now chorea like movements. - Patient Problems (1) Dehydration Current Visit: Yes Status: Acute Code(s): E86.0 - DEHYDRATION SNOMED Code( s): 55953497 Comment: Wilian gotten >2000 ml of IVF, now appears euvolemic (2) Atrial fibrillation Current Visit: No Status: Acute Code(s): I48.91 - UNSPECIFIED ATRIAL FIBRILLATION SNOMED Code(s): 10179895 Comment: in paced rhythm Continue Tikosyn, Metoprolol and Pradaxa (3) Compression fracture of thoracic vertebra Current Visit: No Status: Acute Code(s): S22.000A - WEDGE COMPRESSION FRACTURE OF UNSP THORACIC VERTEBRA, INIT SNOMED Code(s): 226077190 Comment: sustaiuned in 01/2017 fx of T3, T4 and mild progression of T7. Pt is [facility] at [facility] for PT/OT Pain control with tylenol and PRN Tramadol (4) Depression Current Visit: No Status: Acute Code(s): F32.9 - MAJOR DEPRESSIVE DISORDER, SINGLE EPISODE, UNSPECIFIED SNOMED Code(s): 93716131 Comment: Continue Celxa (5) Dyskinesia Current Visit: Yes Status: Acute Code(s): G24.9 - DYSTONIA, UNSPECIFIED SNOMED Code(s): 6863277 Comment: Appears to have have in all extremities labwork pending Neurology consult appreciated (6) History of ESBL E. coli infection Current Visit: Yes Status: Acute Code(s): Z86.19 - PERSONAL HISTORY OF OTHER INFECTIOUS AND PARASITIC DISEASES SNOMED Code(s): 303364521 Comment: treated with Macrodantin. UA shows no bacteria now. will await cx. Macrodantin held (7) HTN (hypertension) Current Visit: No Status: Acute Code(s): I10 - ESSENTIAL (PRIMARY) HYPERTENSION SNOMED Code(s): 34006257 Comment: - Controlled on metoprolol daily, remains stable (8) Full code status Current Visit: No Status: Acute Code(s): Z78.9 - OTHER SPECIFIED HEALTH STATUS SNOMED Code(s): 351450043 (9) DVT prophylaxis Current Visit: No Status: Acute Code(s): UXZ6156 - SNOMED Code(s): 404368287 Comment: - Already on Pradaxa Status and Disposition: Inpatient
[2017-03-26] MEDS: NS 0.9% 1000 ML* 1,000 ML IV SCH (20:49)
[2017-03-26] MEDS: Lidocaine Patch REMOVE* 1 NOTE MISC PATCH OFF SCH (21:05)
--- NOTE | 2017-03-26 22:54 | CONS ---
NEUROLOGY FOLLOWUP: DATE OF FOLLOWUP: 03/26/17 LOCATION: She is in room 406. HOSPITALIST: Dr. Moarlez. CHIEF COMPLAINT: Mental status changes, involuntary movements. INTERVAL HISTORY: Since yesterday, Ms. Gallardo feels "not so good." However, she has had any specific complaints. She denies pain. I asked her some questions regarding family history and both her parents lived into at least their 70s without any movement disorders that she is aware of. She had a brother, who in his 70s without involuntary movements. MEDICATIONS: Reviewed and she is now on: 1. Celexa 10 mg p.o. q. day. 2. Aspirin 81 mg p.o. q. day. 3. Pradaxa 75 mg p.o. b.i.d. 4. Colace 200 mg p.o. b.i.d. 5. Tikosyn 250 mcg p.o. b.i.d. 6. Hydroxyurea 500 mg p.o. q. day. 7. Levothyroxine 125 mcg p.o. q. day. 8. Metoprolol XL 50 mg p.o. q. day. 9. Omeprazole 20 mg p.o. q. day. 10. Tramadol 25 mg p.o. t.i.d. p.r.n. pain. PHYSICAL EXAM: Temperature 98.3, axillary; blood pressure 101/59; heart rate in the 90s and irregular. Heart rate is in irregular rhythm without murmurs. Skin is warm and dry. Neurologically, pupils react equally from about 2.5 to 2 mm. Eye movements are full. Facial musculature symmetrical. There is some mild facial grimacing. Speech is soft and mildly dysarthric. Motor exam reveals normal tone in the limbs. There are choreoathetoid movements mainly in the slower athetoid range. There is no myoclonus or asterixis. Reflexes are hypoactive in the upper extremities, absent at knees and ankles. Plantars are flexor bilaterally. She is alert and oriented to person and place today. She is not oriented to time. She does not know how long she has been there. LABORATORY DATA: Since yesterday is notable for a low vitamin B12 level at 159 , TSH is low at 0.29. The rest of the laboratories I ordered yesterday are still pending. Her chemistry profile is fairly unremarkable with glucose of 118 today. CBC is likewise essentially unchanged. Sedimentation rate is normal at 21. IMPRESSION AND PLAN: Impression is that of choreoathetoid dyskinesia of unclear etiology. I am still awaiting a number of laboratory studies for possible connective tissue or hematological disorders. She has a pacemaker, so MRI is out of the question. If her labs are negative, I would recommend tapering off citalopram entirely overtime to see if that results in any improvement in her movement disorder. There are relatively reports of serotonin reuptake inhibitors causing dyskinesias. Most commonly, they just cause tremor. I will continue to follow her along with you. [id number]/[facility] #: [id number] DOLLY
[2017-03-27] MEDS: Levothyroxine TAB* 125 MCG TAB PO SCH (05:46)
[2017-03-27 07:14] LABS: EGFR Non-African American 112.1 (>60)
[2017-03-27 09:11] LABS: Hematocrit 41 % (35-47); Hemoglobin 12.5 g/dl (12.0-16.0); Mean Corpuscular HGB Conc 31 g/dl (31-36); Mean Corpuscular Hemoglobin 25 pg (27-31); Mean Corpuscular Volume 81 fL (80-97); Mean Platelet Volume 7 um3 (7.4-10.4); Platelet Count 207 10^3/ul (150-450); Red Blood Count 4.98 10^6/ul (4.0-5.4); Red Cell Distribution Width 21 % (10.5-15); White Blood Count 8.1 10^3/ul (3.5-10.8)
[2017-03-27 09:45] LABS: ABS Basophils 0 10^3/ul (0-0.2); ABS Eosinophils 0 10^3/ul (0-0.6); ABS Lymphocytes 0.3 10^3/ul (1.0-4.8); ABS Monocytes 0.5 10^3/ul (0-0.8); ABS Neutrophils 7.3 10^3/ul (1.5-7.7); ABS Nucleated RBC 0 10^3/ul; Eosinophil % 0 % (0-6); Lymphocyte % 3.4 % (25-47); Nucleated Red Blood Cells % 0.2
[2017-03-27] MEDS: CMCS: Dabigatran CAP(NF) 75 MG CAP PO SCH ×2 (10:56→20:17)
[2017-03-27] MEDS: Dofetilide CAP* 250 MCG PO SCH ×2 (10:57→20:17)
[2017-03-27] MEDS: HydroxyUREA CAP* 500 MG CAP PO SCH (10:57)
[2017-03-27] MEDS: Citalopram TAB* 10 MG PO SCH (10:58)
[2017-03-27] MEDS: Aspirin EC Low Dose* 81 MG TAB.EC PO SCH (10:58)
[2017-03-27] MEDS: Docusate CAP* 100 MG PO SCH ×3 (11:00→20:21)
[2017-03-27] MEDS: Metoprolol Succinate XL TAB* 50 MG PO SCH (11:01)
[2017-03-27] MEDS: Omeprazole CAP* 20 MG PO SCH ×2 (11:01→11:03)
--- NOTE | 2017-03-27 12:34 | PN ---
Subjective Date of Service: 03/27/17 Interval History: No complaints. Denies chest pain or shortness of breath, denies n/v/d c/o mild suprapubic abd pain with palpation Family History: Unchanged from Admission Social History: Unchanged from Admission Past Medical History: Unchanged from Admission Objective Active Medications: Acetaminophen (Tylenol Tab*) 650 mg PO Q6H PRN PRN Reason: FEVER/PAIN Albuterol (Ventolin 2.5 Mg/3 Ml Neb.Selma*) 2.5 mg INH Q2H PRN PRN Reason: SOB/WHEEZING Aspirin (Aspirin Ec Low Dose*) 81 mg PO QAM [facility] Last Admin: 03/27/17 10:58 Dose: 81 mg Citalopram Hydrobromide (Celexa Tab*) 10 mg PO DAILY [facility] Last Admin: 03/27/17 10:58 Dose: 10 mg Dabigatran (Pradaxa Cap(Nf)) 75 mg PO BID [facility] Last Admin: 03/27/17 10:56 Dose: 75 mg Docusate Sodium (Colace Cap*) 200 mg PO BID [facility] Last Admin: 03/27/17 11:04 Dose: Not Given Dofetilide (Tikosyn Cap*) 250 mcg PO 0800,2000 [facility] Last Admin: 03/27/17 10:57 Dose: 250 mcg Hydroxyurea (Hydrea Cap*) 500 mg PO DAILY [facility] Last Admin: 03/27/17 10:57 Dose: 500 mg Sodium Chloride (Ns 0.9% 1000 Ml*) 1,000 mls @ 50 mls/hr IV .PER RATE [facility] Last Admin: 03/26/17 20:49 Dose: 50 mls/hr Levothyroxine Sodium (Synthroid Tab*) 125 mcg PO DAILY@0600 [facility] Last Admin: 03/27/17 05:46 Dose: 125 mcg Lidocaine (Lidoderm 5% Patch*) 1 patch TRANSDERM DAILY PRN PRN Reason: PAIN Last Admin: 03/25/17 09:21 Dose: 1 patch Melatonin (Melatonin (Nf)) 3 mg PO BEDTIME PRN; Protocol PRN Reason: Sleep Metoprolol Succinate (Toprol Xl Tab*) 50 mg PO DAILY [facility] Last Admin: 03/27/17 11:01 Dose: Not Given Omeprazole (Prilosec Cap*) 20 mg PO DAILY [facility] Last Admin: 03/27/17 11:03 Dose: Not Given Pharmacy Profile Note (Lidocaine Patch Remove*) 1 note PATCH OFF [address] Last Admin: 03/26/17 21:05 Dose: Not Given Tramadol HCl (Ultram*) 25 mg PO TID PRN PRN Reason: PAIN Last Admin: 03/25/17 09:22 Dose: 25 mg Vital Signs - 8 hr 03/27/17 07:55 Temperature 98.6 F Pulse Rate 101 Respiratory 18 Rate Blood Pressure 102/67 (mmHg) O2 Sat by Pulse 98 Oximetry Oxygen Devices in Use Now: None Appearance: appears comfortable resting in bed, follows commands, falls asleep frequently during the exam, but arouses to verbal Eyes: No Scleral Icterus Ears/Nose/Mouth/Throat: Clear Oropharnyx, Mucous Membranes Moist Neck: NL Appearance and Movements; NL JVP, Trachea Midline Respiratory: Symmetrical Chest Expansion and Respiratory Effort, Clear to Auscultation Cardiovascular: NL Sounds; No Murmurs; No JVD, RRR, No Edema Abdominal: NL Sounds; No Tenderness; No Distention Skin: No Rash or Ulcers Neurological: - - continue to have involuntary movements of the arms and legs, confused to place and time Nutrition: - - minimal PO fluid intake Result Diagrams: 03/27/17 08:13 03/27/17 06:40 Additional Lab and Data: Lab Results 03/24/17 03/24/17 03/24/17 Range/Units 22:10 22:10 22:10 WBC 10.8 (3.5-10.8) 10^3/ul RBC 5.51 H (4.0-5.4) 10^6/ul Hgb 14.1 (12.0-16.0) g/dl Hct 44 (35-47) % MCV 80 (80-97) fL MCH 26 L (27-31) pg MCHC 32 (31-36) g/dl RDW 21 H (10.5-15) % Plt Count 276 (150-450) 10^3/ul MPV 7 L (7.4-10.4) um3 Neut % (Auto) 88.1 H (38-83) % Lymph % (Auto) 4.0 L (25-47) % Lynn % (Auto) 7.8 (1-9) % Eos % (Auto) 0 (0-6) % Baso % (Auto) 0.1 (0-2) % Absolute Neuts (auto) 9.5 H (1.5-7.7) 10^3/ul Absolute Lymphs (auto) 0.4 L (1.0-4.8) 10^3/ul Absolute Monos (auto) 0.8 (0-0.8) 10^3/ul Absolute Eos (auto) 0 (0-0.6) 10^3/ul Absolute Basos (auto) 0 (0-0.2) 10^3/ul Absolute Nucleated RBC 0 10^3/ul Nucleated RBC % 0 INR (Anticoag Therapy) 1.50 H (0.77-1.02) APTT 43.9 H (26.0-36.3) seconds Sodium 131 L (133-145) mmol/L Potassium 5.0 (3.5-5.0) mmol/L Chloride 96 L (101-111) mmol/L Carbon Dioxide 28 (22-32) mmol/L Anion Gap 7 (2-11) mmol/L BUN 31 H (6-24) mg/dL Creatinine 0.82 (0.51-0.95) mg/dL Est GFR ( Amer) 85.2 (>60) Est GFR (Non-Af Amer) 66.3 (>60) BUN/Creatinine Ratio 37.8 H (8-20) Glucose 153 H (70-100) mg/dL Lactic Acid (0.5-2.0) mmol/L Calcium 9.0 (8.6-10.3) mg/dL Total Bilirubin 0.70 (0.2-1.0) mg/dL AST 11 L (13-39) U/L ALT 9 (7-52) U/L Alkaline Phosphatase 64 (34-104) U/L Troponin I 0.01 (<0.04) ng/mL C-Reactive Protein 41.22 H (< 5.00) mg/L B-Natriuretic Peptide ( - 100) pg/mL Total Protein 7.1 (6.4-8.9) g/dL Albumin 3.5 (3.2-5.2) g/dL Globulin 3.6 (2-4) g/dL Albumin/Globulin Ratio 1.0 (1-3) Urine Color Urine Appearance Urine pH (5-9) Ur Specific Thornton (1.010-1.030) Urine Protein (Negative) Urine Ketones (Negative) Urine Blood (Negative) Urine Nitrate (Negative) Urine Bilirubin (Negative) Urine Urobilinogen (Negative) Ur Leukocyte Esterase (Negative) Urine WBC (Auto) (Absent) Urine RBC (Auto) (Absent) Ur Squamous Epith Cells (Absent) Urine Bacteria (Absent) Urine Glucose (Negative) Influenza A (Rapid) (Negative) Influenza B (Rapid) (Negative) 03/24/17 03/24/17 03/24/17 Range/Units 22:10 22:10 22:22 WBC (3.5-10.8) 10^3/ul RBC (4.0-5.4) 10^6/ul Hgb (12.0-16.0) g/dl Hct (35-47) % MCV (80-97) fL MCH (27-31) pg MCHC (31-36) g/dl RDW (10.5-15) % Plt Count (150-450) 10^3/ul MPV (7.4-10.4) um3 Neut % (Auto) (38-83) % Lymph % (Auto) (25-47) % Lynn % (Auto) (1-9) % Eos % (Auto) (0-6) % Baso % (Auto) (0-2) % Absolute Neuts (auto) (1.5-7.7) 10^3/ul Absolute Lymphs (auto) (1.0-4.8) 10^3/ul Absolute Monos (auto) (0-0.8) 10^3/ul Absolute Eos (auto) (0-0.6) 10^3/ul Absolute Basos (auto) (0-0.2) 10^3/ul Absolute Nucleated RBC 10^3/ul Nucleated RBC % INR (Anticoag Therapy) (0.77-1.02) APTT (26.0-36.3) seconds Sodium (133-145) mmol/L Potassium (3.5-5.0) mmol/L Chloride (101-111) mmol/L Carbon Dioxide (22-32) mmol/L Anion Gap (2-11) mmol/L BUN (6-24) mg/dL Creatinine (0.51-0.95) mg/dL Est GFR ( Amer) (>60) Est GFR (Non-Af Amer) (>60) BUN/Creatinine Ratio (8-20) Glucose (70-100) mg/dL Lactic Acid 1.5 (0.5-2.0) mmol/L Calcium (8.6-10.3) mg/dL Total Bilirubin (0.2-1.0) mg/dL AST (13-39) U/L ALT (7-52) U/L Alkaline Phosphatase (34-104) U/L Troponin I (<0.04) ng/mL C-Reactive Protein (< 5.00) mg/L B-Natriuretic Peptide 162 H ( - 100) pg/mL Total Protein (6.4-8.9) g/dL Albumin (3.2-5.2) g/dL Globulin (2-4) g/dL Albumin/Globulin Ratio (1-3) Urine Color Urine Appearance Urine pH (5-9) Ur Specific Thornton (1.010-1.030) Urine Protein (Negative) Urine Ketones (Negative) Urine Blood (Negative) Urine Nitrate (Negative) Urine Bilirubin (Negative) Urine Urobilinogen (Negative) Ur Leukocyte Esterase (Negative) Urine WBC (Auto) (Absent) Urine RBC (Auto) (Absent) Ur Squamous Epith Cells (Absent) Urine Bacteria (Absent) Urine Glucose (Negative) Influenza A (Rapid) Negative (Negative) Influenza B (Rapid) Negative (Negative) 03/24/17 Range/Units 23:48 WBC (3.5-10.8) 10^3/ul RBC (4.0-5.4) 10^6/ul Hgb (12.0-16.0) g/dl Hct (35-47) % MCV (80-97) fL MCH (27-31) pg MCHC (31-36) g/dl RDW (10.5-15) % Plt Count (150-450) 10^3/ul MPV (7.4-10.4) um3 Neut % (Auto) (38-83) % Lymph % (Auto) (25-47) % Lynn % (Auto) (1-9) % Eos % (Auto) (0-6) % Baso % (Auto) (0-2) % Absolute Neuts (auto) (1.5-7.7) 10^3/ul Absolute Lymphs (auto) (1.0-4.8) 10^3/ul Absolute Monos (auto) (0-0.8) 10^3/ul Absolute Eos (auto) (0-0.6) 10^3/ul Absolute Basos (auto) (0-0.2) 10^3/ul Absolute Nucleated RBC 10^3/ul Nucleated RBC % INR (Anticoag Therapy) (0.77-1.02) APTT (26.0-36.3) seconds Sodium (133-145) mmol/L Potassium (3.5-5.0) mmol/L Chloride (101-111) mmol/L Carbon Dioxide (22-32) mmol/L Anion Gap (2-11) mmol/L BUN (6-24) mg/dL Creatinine (0.51-0.95) mg/dL Est GFR ( Amer) (>60) Est GFR (Non-Af Amer) (>60) BUN/Creatinine Ratio (8-20) Glucose (70-100) mg/dL Lactic Acid (0.5-2.0) mmol/L Calcium (8.6-10.3) mg/dL Total Bilirubin (0.2-1.0) mg/dL AST (13-39) U/L ALT (7-52) U/L Alkaline Phosphatase (34-104) U/L Troponin I (<0.04) ng/mL C-Reactive Protein (< 5.00) mg/L B-Natriuretic Peptide ( - 100) pg/mL Total Protein (6.4-8.9) g/dL Albumin (3.2-5.2) g/dL Globulin (2-4) g/dL Albumin/Globulin Ratio (1-3) Urine Color Emelina Urine Appearance Cloudy Urine pH 5.0 (5-9) Ur Specific Thornton 1.021 (1.010-1.030) Urine Protein 1+(30 mg/dl) H (Negative) Urine Ketones Negative (Negative) Urine Blood 1+ H (Negative) Urine Nitrate Negative (Negative) Urine Bilirubin Negative (Negative) Urine Urobilinogen Negative (Negative) Ur Leukocyte Esterase Negative (Negative) Urine WBC (Auto) Absent (Absent) Urine RBC (Auto) 1+(3-5/hpf) H (Absent) Ur Squamous Epith Cells Present H (Absent) Urine Bacteria Absent (Absent) Urine Glucose Negative (Negative) Influenza A (Rapid) (Negative) Influenza B (Rapid) (Negative) Microbiology and Other Data: Microbiology 03/25/17 02:27 Nasal Screen MRSA (PCR)(ANDRES) - Final Nasal Mrsa Detected Assess/Plan/Problems-Billing Assessment: 86 yo f with h/o vertebral fractures, a. fib (on tikosyn and Pradaxa ), pacer, polycythemia vera( on hydroxyurea), ESBL E. coli (on nitrofurantoin recently) presents with lethargy, worsening confusion and now chorea like movements. - Patient Problems (1) Dehydration Current Visit: Yes Status: Acute Code(s): E86.0 - DEHYDRATION SNOMED Code( s): 75887266 Comment: Patient with poor po intake- IV NS restarted at 50 cc/hr for hydration (2) Atrial fibrillation Current Visit: No Status: Acute Code(s): I48.91 - UNSPECIFIED ATRIAL FIBRILLATION SNOMED Code(s): 67170308 Comment: in paced rhythm Continue Tikosyn, Metoprolol and Pradaxa (3) Compression fracture of thoracic vertebra Current Visit: No Status: Acute Code(s): S22.000A - WEDGE COMPRESSION FRACTURE OF UNSP THORACIC VERTEBRA, INIT SNOMED Code(s): 476073665 Comment: sustained in 01/2017 fx of T3, T4 and mild progression of T7. Pt is currenlty at [facility] for PT/OT Pain control with tylenol and PRN Tramadol (4) Depression Current Visit: No Status: Acute Code(s): F32.9 - MAJOR DEPRESSIVE DISORDER, SINGLE EPISODE, UNSPECIFIED SNOMED Code(s): 19620891 Comment: Continue Celexa (5) Dyskinesia Current Visit: Yes Status: Acute Code(s): G24.9 - DYSTONIA, UNSPECIFIED SNOMED Code(s): 1001630 Comment: Appears to have have in all extremities labwork pending Neurology consult appreciated (6) History of ESBL E. coli infection Current Visit: Yes Status: Acute Code(s): Z86.19 - PERSONAL HISTORY OF OTHER INFECTIOUS AND PARASITIC DISEASES SNOMED Code(s): 122458833 Comment: treated with Macrodantin. UA shows no bacteria now. will await cx. Macrodantin held (7) HTN (hypertension) Current Visit: No Status: Acute Code(s): I10 - ESSENTIAL (PRIMARY) HYPERTENSION SNOMED Code(s): 46205755 Comment: - Controlled on metoprolol daily, remains stable (8) Hypothyroidism Current Visit: No Status: Acute Code(s): E03.9 - HYPOTHYROIDISM, UNSPECIFIED SNOMED Code(s): 81472319 Comment: - Continue Synthroid daily TSH 0.29~ should have tsh rechecked as an outpatient (9) Full code status Current Visit: No Status: Acute Code(s): Z78.9 - OTHER SPECIFIED HEALTH STATUS SNOMED Code(s): 676522215 (10) DVT prophylaxis Current Visit: No Status: Acute Code(s): MRF5148 - SNOMED Code(s): 127392913 Comment: - Already on Pradaxa Status and Disposition: Inpatient
--- NOTE | 2017-03-27 13:37 | CONSULT ---
Palliative / Hospice Consult Ordering Provider: Lashell Moralez - Subjective Code Status: Full Code-Needs Follow Up Advance Directives Location: [facility] [place] [facility] - History or Present Illness History or Present Illness: This 86 year old woman was admitted from [facility] where she [facility] supposed to be participating in rehab after suffering falls and fractures. She has had multiple ER visits following falls over the past year: 03/14/16, 05/07/16 , 03/10/16, 08/08/16, 12/16/16, and 01/19/17 prior to her admission on 01/30/17 for vertebral compression fractures. The patient has osteoporosis, and her son reports increasing dyskinetic movements over the past year. Sh ehas a history of opioid abuse and dependence, and over the past months was finally transitioned to Tramadol alone. He reports increasing problems with memory and confusion over the past 6 months. During her rehab stay, the patient had markedly reduced p.o. intake. She was transferred here for this admission becaue of lethargy and confusion. Her Vitamin B12 was low, and replaced, and her TSH was low (0.29) so her thyroid replacement was reduced. She has persisted with her mental status changes and involuntary movements. Dr. 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 When I went to see the patient, and asked her why she was in the hosptial, she said, "Because I'm dying," but she was unable toell me where she was or what the year was. I have been unable to reach her son and HCP, . Lab Values: Abnormal Lab Results 03/27/17 03/27/17 06:40 08:13 WBC 8.1 RBC 4.98 Hgb 12.5 Hct 41 MCV 81 MCH 25 L MCHC 31 RDW 21 H Plt Count 207 MPV 7 L Neut % (Auto) 90.0 H Lymph % (Auto) 3.4 L Weld % (Auto) 6.3 Eos % (Auto) 0 Baso % (Auto) 0.3 Absolute Neuts (auto) 7.3 Absolute Lymphs (auto) 0.3 L Absolute Monos (auto) 0.5 Absolute Eos (auto) 0 Absolute Basos (auto) 0 Absolute Nucleated RBC 0 Nucleated RBC % 0.2 Sodium 132 L Potassium 4.3 Chloride 103 Carbon Dioxide 22 Anion Gap 7 BUN 27 H Creatinine 0.52 Est GFR ( Amer) 144.1 Est GFR (Non-Af Amer) 112.1 BUN/Creatinine Ratio 51.9 H Glucose 132 H Calcium 8.3 L Magnesium 2.0 Laboratory Last Values WBC 8.1 10^3/ul (3.5-10.8) 03/27/17 08:13 RBC 4.98 10^6/ul (4.0-5.4) 03/27/17 08:13 Hgb 12.5 g/dl (12.0-16.0) 03/27/17 08:13 Hct 41 % (35-47) 03/27/17 08:13 MCV 81 fL (80-97) 03/27/17 08:13 MCH 25 pg (27-31) L 03/27/17 08:13 MCHC 31 g/dl (31-36) 03/27/17 08:13 RDW 21 % (10.5-15) H 03/27/17 08:13 Plt Count 207 10^3/ul (150-450) 03/27/17 08:13 MPV 7 um3 (7.4-10.4) L 03/27/17 08:13 Neut % (Auto) 90.0 % (38-83) H 03/27/17 08:13 Lymph % (Auto) 3.4 % (25-47) L 03/27/17 08:13 Weld % (Auto) 6.3 % (1-9) 03/27/17 08:13 Eos % (Auto) 0 % (0-6) 03/27/17 08:13 Baso % (Auto) 0.3 % (0-2) 03/27/17 08:13 Absolute Neuts (auto) 7.3 10^3/ul (1.5-7.7) 03/27/17 08:13 Absolute Lymphs (auto) 0.3 10^3/ul (1.0-4.8) L 03/27/17 08:13 Absolute Monos (auto) 0.5 10^3/ul (0-0.8) 03/27/17 08:13 Absolute Eos (auto) 0 10^3/ul (0-0.6) 03/27/17 08:13 Absolute Basos (auto) 0 10^3/ul (0-0.2) 03/27/17 08:13 Absolute Nucleated RBC 0 10^3/ul 03/27/17 08:13 Nucleated RBC % 0.2 03/27/17 08:13 ESR 21 mm/Hr (0-40) 03/25/17 15:13 INR (Anticoag Therapy) 1.50 (0.77-1.02) H 03/24/17 22:10 APTT 43.9 seconds (26.0-36.3) H 03/24/17 22:10 Sodium 132 mmol/L (133-145) L 03/27/17 06:40 Potassium 4.3 mmol/L (3.5-5.0) 03/27/17 06:40 Chloride 103 mmol/L (101-111) 03/27/17 06:40 Carbon Dioxide 22 mmol/L (22-32) 03/27/17 06:40 Anion Gap 7 mmol/L (2-11) 03/27/17 06:40 BUN 27 mg/dL (6-24) H 03/27/17 06:40 Creatinine 0.52 mg/dL (0.51-0.95) 03/27/17 06:40 Est GFR ( Amer) 144.1 (>60) 03/27/17 06:40 Est GFR (Non-Af Amer) 112.1 (>60) 03/27/17 06:40 BUN/Creatinine Ratio 51.9 (8-20) H 03/27/17 06:40 Glucose 132 mg/dL (70-100) H 03/27/17 06:40 Lactic Acid 1.2 mmol/L (0.5-2.0) 03/25/17 03:15 Calcium 8.3 mg/dL (8.6-10.3) L 03/27/17 06:40 Magnesium 2.0 mg/dL (1.9-2.7) 03/27/17 06:40 Total Bilirubin 0.70 mg/dL (0.2-1.0) 03/24/17 22:10 AST 11 U/L (13-39) L 03/24/17 22:10 ALT 9 U/L (7-52) 03/24/17 22:10 Alkaline Phosphatase 64 U/L (34-104) 03/24/17 22:10 Troponin I 0.01 ng/mL (<0.04) 03/24/17 22:10 C-Reactive Protein 41.22 mg/L (< 5.00) H 03/24/17 22:10 B-Natriuretic Peptide 162 pg/mL (-100) H 03/24/17 22:10 Total Protein 7.1 g/dL (6.4-8.9) 03/24/17 22:10 Albumin 3.5 g/dL (3.2-5.2) 03/24/17 22:10 Globulin 3.6 g/dL (2-4) 03/24/17 22:10 Albumin/Globulin Ratio 1.0 (1-3) 03/24/17 22:10 Vitamin B12 159 pg/mL (180-914) L 03/25/17 15:05 TSH 0.29 mcIU/mL (0.34-5.60) L 03/25/17 15:05 Urine Color Emelina 03/24/17 23:48 Urine Appearance Cloudy 03/24/17 23:48 Urine pH 5.0 (5-9) 03/24/17 23:48 Ur Specific [place] 1.021 (1.010-1.030) 03/24/17 23:48 Urine Protein 1+(30 mg/dl) (Negative) H 03/24/17 23:48 Urine Ketones Negative (Negative) 03/24/17 23:48 Urine Blood 1+ (Negative) H 03/24/17 23:48 Urine Nitrate Negative (Negative) 03/24/17 23:48 Urine Bilirubin Negative (Negative) 03/24/17 23:48 Urine Urobilinogen Negative (Negative) 03/24/17 23:48 Ur Leukocyte Esterase Negative (Negative) 03/24/17 23:48 Urine WBC (Auto) Absent (Absent) 03/24/17 23:48 Urine RBC (Auto) 1+(3-5/hpf) (Absent) H 03/24/17 23:48 Ur Squamous Epith Cells Present (Absent) H 03/24/17 23:48 Urine Bacteria Absent (Absent) 03/24/17 23:48 Urine Glucose Negative (Negative) 03/24/17 23:48 Rheumatoid Factor <15 IU/mL (<15) 03/25/17 15:13 Proteinase 3 (PR3) < 0.2 U 03/25/17 15:13 Myeloperoxidase Ab < 0.2 U 03/25/17 15:13 Influenza A (Rapid) Negative (Negative) 03/24/17 22:22 Influenza B (Rapid) Negative (Negative) 03/24/17 22:22 - Objective Active Medications: Acetaminophen (Tylenol Tab*) 650 mg PO Q6H PRN PRN Reason: FEVER/PAIN Albuterol (Ventolin 2.5 Mg/3 Ml Neb.Selma*) 2.5 mg INH Q2H PRN PRN Reason: SOB/WHEEZING Aspirin (Aspirin Ec Low Dose*) 81 mg PO QAM [facility] Last Admin: 03/27/17 10:58 Dose: 81 mg Citalopram Hydrobromide (Celexa Tab*) 10 mg PO DAILY [facility] Last Admin: 03/27/17 10:58 Dose: 10 mg Dabigatran (Pradaxa Cap(Nf)) 75 mg PO BID [facility] Last Admin: 03/27/17 10:56 Dose: 75 mg Docusate Sodium (Colace Cap*) 200 mg PO BID [facility] Last Admin: 03/27/17 11:04 Dose: Not Given Dofetilide (Tikosyn Cap*) 250 mcg PO 0800,1999 [facility] Last Admin: 03/27/17 10:57 Dose: 250 mcg Hydroxyurea (Hydrea Cap*) 500 mg PO DAILY [facility] Last Admin: 03/27/17 10:57 Dose: 500 mg Sodium Chloride (Ns 0.9% 1000 Ml*) 1,000 mls @ 50 mls/hr IV .PER RATE [facility] Last Admin: 03/26/17 20:49 Dose: 50 mls/hr Levothyroxine Sodium (Synthroid Tab*) 125 mcg PO DAILY@0600 [facility] Last Admin: 03/27/17 05:46 Dose: 125 mcg Lidocaine (Lidoderm 5% Patch*) 1 patch TRANSDERM DAILY PRN PRN Reason: PAIN Last Admin: 03/25/17 09:21 Dose: 1 patch Melatonin (Melatonin (Nf)) 3 mg PO BEDTIME PRN; Protocol PRN Reason: Sleep Metoprolol Succinate (Toprol Xl Tab*) 50 mg PO DAILY [facility] Last Admin: 03/27/17 11:01 Dose: Not Given Omeprazole (Prilosec Cap*) 20 mg PO DAILY [facility] Last Admin: 03/27/17 11:03 Dose: Not Given Pharmacy Profile Note (Lidocaine Patch Remove*) 1 note PATCH OFF 2100 [facility] Last Admin: 03/26/17 21:05 Dose: Not Given Tramadol HCl (Ultram*) 25 mg PO TID PRN PRN Reason: PAIN Last Admin: 03/25/17 09:22 Dose: 25 mg Vital Signs: Vital Signs: Temp Pulse Resp BP Pulse Ox 98.2 F 103 18 99/68 96 03/27/17 11:41 03/27/17 11:41 03/27/17 12:30 03/27/17 11:41 03/27/17 11:41 Patient Weight: Weight 119 lb Intake and Output: Intake & Output 03/25/17 03/26/17 03/27/17 03/28/17 06:59 06:59 06:59 06:59 Intake Total 0 0 Balance 0 0 Weight 119 lb Intake: Oral 0 0 Other: Estimated Void Medium # Bowel Movements 0 Estimated Stool Amount Small # Voids 1 ADLs: Meal Record Start: 03/25/17 00: 54 Freq: DAILY@0900,1400,1800 Status: Active Protocol: Document 03/25/17 09:00 [id number] (Rec: 03/25/17 15:15 [id number] [facility] [place] [place]) Document 03/25/17 14:00 [id number] (Rec: 03/25/17 15:17 [id number] [facility]) Document 03/25/17 18:00 [id number] (Rec: 03/25/17 22:24 [id number] [facility] [place] [place]) Document 03/26/17 09:00 [id number] (Rec: 03/26/17 10:18 [id number] [facility]) Document 03/26/17 14:00 [id number] (Rec: 03/26/17 14:51 [id number] [facility]) Document 03/26/17 18:00 [id number] (Rec: 03/26/17 18:41 [id number] [facility] [place] [place]) Document 03/27/17 09:00 [id number] (Rec: 03/27/17 11:42 [id number] [facility]-C[facility]) Intake and Output Start: 03/25/17 00: 54 Freq: DAILY@0600,1400,2200 Status: Active Protocol: Document 03/25/17 05:19 [id number] (Rec: 03/25/17 05:19 [id number] [facility]) Document 03/25/17 14:00 [id number] (Rec: 03/25/17 15:17 [id number] [facility]) Document 03/25/17 22:00 [id number] (Rec: 03/25/17 22:25 [id number] [facility]) Document 03/26/17 05:38 [id number] (Rec: 03/26/17 05:38 [id number] MED-C26) Document 03/26/17 05:52 [id number] (Rec: 03/26/17 05:52 [id number] MED-C26) Document 03/26/17 14:00 [id number] (Rec: 03/26/17 14:51 [id number] MED-C11) Document 03/26/17 21:45 [id number] (Rec: 03/26/17 21:45 [id number] MED-C04) Document 03/27/17 04:39 [id number] (Rec: 03/27/17 04:39 [id number] MEDL-C02) General Impression: Patient lying in bed, no eye contact but awake, with choreoathetoid movements of her extremities and torso. Head: Symmetrical Eyes: No Scleral Icterus Ears/Nose/Mouth/Throat: Clear Oropharnyx, Mucous Membranes Moist Neck: NL Appearance and Movements; NL JVP, Trachea Midline Cardiovascular: NL Sounds; No Murmurs; No JVD, RRR, No Edema Respiratory: Symmetrical Chest Expansion and Respiratory Effort Abdominal: NL Sounds; No Tenderness; No Distention Extremities: No Edema, No Clubbing, Cyanosis Neurological: - - Confused and diisoriented, unable to attend to a conversation. - Assessment Assessment: This patient has a chreoathetoid dyskinesia of unclear etiology. Her SPEP and other neuro. labs are not complete. It is possible, but unlikely, that she has a reversible problem causing her rapid deterioration of mental status and her movement disorder, but at present, she is not eating or drinking, and she is a full code. She clearly has no decision-making capacity at present, and I have been unable to reach her son , although I have left messages for him to call me. I will try to get in touch with him to discuss her situation and fill out an appropriate MOLST form for this patient. This is important no matter what the underlying etiology of her problem proves to be. I am unable to comment on hospice eligibility until the neurologi (and perhaps hematologic) evaluations are complete. Thanks for asking me to see her. - Plan Consult Plan (MU): Palliative - Time On Unit Date of Evaluation: 03/27/17 Hospice Consult Time in: 12:50 Hospice Consult Time Out: 13:50 Hospice Consult Time Total: 60 > 50% of Time Spend In Counseling or Coordinating Care: Yes
--- NOTE | 2017-03-27 20:02 | PN ---
NEUROLOGY FOLLOWUP NOTE: DATE OF FOLLOWUP: 03/27/17 LOCATION: She is in room 406. HOSPITALIST: Shy uMñoz NP CHIEF COMPLAINT: Mental status changes and involuntary movements. INTERVAL HISTORY: Since last visit yesterday, she is doing about the same. She has no appetite, is not really eating or drinking and now some IV fluids going. She has no complaints otherwise. She continues to denies muscle spasms. MEDICATIONS: Medications were reviewed and she remains on: 1. Aspirin 81 mg p.o. daily. 2. Citalopram 10 mg p.o. daily. 3. Pradaxa 75 mg p.o. b.i.d. 4. Colace 200 mg p.o. b.i.d. 5. Tikosyn 250 mcg p.o. daily. 6. Hydroxyurea 500 mg p.o. daily. 7. Levothyroxine 125 mcg p.o. daily. 8. Metoprolol XL 50 mg p.o. daily. 9. Omeprazole 20 mg p.o. daily. 10. Tramadol 25 mg p.o. t.i.d. p.r.n. 11. She received 1 dose of vitamin B12 1000 mcg yesterday. PHYSICAL EXAMINATION: Vital Signs: On exam, she looks pale and tired. Temperature most recently 98.2 axillary, blood pressure is running about 100/70 , heart rate running in the 90s to 100 and is irregular, respiratory rate is 18 , and oxygen saturation is 96% on room air. Heart: Irregular rhythm, but I do not hear any murmurs. Neck: Supple. Neurologic: She has mildly to moderately frequent generalized choreoathetoid movements mainly in the athetoid range. There is flexion dystonic posturing of the feet, but they are easily manipulated without increase in muscle tone. Muscle tone in the limbs is normal. There is no tremor. She is diffusely weak. She answers questions immediately, but is lethargic and closes her eyes when spoken to. Language is fluent. LABORATORY DATA: From today notable for unremarkable CBC, chemistry profile today notable for sodium of 132, glucose 132, calcium 8.3 today with albumin not checked since 03/24/17 when it was 3.5. CRP on 03/24/17 was elevated at 41. Vitamin B12 level on 03/25/17 was 159 after which she got 1000 mcg intramuscularly. New laboratory studies back from 03/25/17 are negative rheumatoid factor, negative proteinase 3, and myeloperoxidase antibodies. CHERYL and CCP are pending. Serum protein electrophoresis is pending as well. ASSESSMENT AND PLAN: Ms. Gallardo continues with choreoathetoid dyskinesis of unclear etiology. Some laboratory studies are still pending. She was B12 deficient and that has been corrected and will require further injections and oral supplementation in the future. If she does not start eating and drinking, things are not going to improve regardless of what we do. Hydroxyurea could suppress appetite according to [employer] and as her counts are not elevated, consideration towards stopping it temporarily is one thought. Risperdal might suppress her involuntary activities, but could increase her sedation. I will discuss her case with the hospitalist service regarding consideration of one of these changes. [id number]/[facility] #: [id number] MTDD
[2017-03-27] MEDS: Lidocaine Patch REMOVE* 1 NOTE MISC PATCH OFF SCH (20:33)
[2017-03-28] MEDS: NS 0.9% 1000 ML* 1,000 ML IV SCH (01:00)
[2017-03-28] MEDS: Levothyroxine TAB* 100 MCG TAB PO SCH (05:33)
[2017-03-28] MEDS: HydroxyUREA CAP* 500 MG CAP PO SCH (09:19)
[2017-03-28] MEDS: Docusate CAP* 100 MG PO SCH ×3 (09:19→20:16)
[2017-03-28] MEDS: Metoprolol Succinate XL TAB* 50 MG PO SCH (09:19)
[2017-03-28] MEDS: CMCS: Dabigatran CAP(NF) 75 MG CAP PO SCH ×3 (09:19→20:49)
[2017-03-28] MEDS: Aspirin EC Low Dose* 81 MG TAB.EC PO SCH (09:20)
[2017-03-28] MEDS: Citalopram TAB* 10 MG PO SCH (09:20)
[2017-03-28] MEDS: Omeprazole CAP* 20 MG PO SCH (09:20)
[2017-03-28] MEDS: Dofetilide CAP* 250 MCG PO SCH ×3 (09:20→20:49)
--- NOTE | 2017-03-28 16:16 | PN ---
Subjective Date of Service: 03/28/17 Interval History: Patient continues to be confused and lethargic, seeming to fall asleep while talking with an exaggerated motion. Patient is A/Ox1 only. Patient denies pain but states she has various pains to the nursing staff. Patient denies F/C, N/V, abdominal pain, diarrhea, constipation, dysuria, dizziness, headache, dizziness , or changes in vision. Family History: Unchanged from Admission Social History: Unchanged from Admission Past Medical History: Unchanged from Admission Objective Active Medications: Acetaminophen (Tylenol Tab*) 650 mg PO Q6H PRN PRN Reason: FEVER/PAIN Albuterol (Ventolin 2.5 Mg/3 Ml Neb.Selma*) 2.5 mg INH Q2H PRN PRN Reason: SOB/WHEEZING Aspirin (Aspirin Ec Low Dose*) 81 mg PO QAM [facility] Last Admin: 03/28/17 09:20 Dose: 81 mg Citalopram Hydrobromide (Celexa Tab*) 10 mg PO DAILY [facility] Last Admin: 03/28/17 09:20 Dose: 10 mg Dabigatran (Pradaxa Cap(Nf)) 75 mg PO BID [facility] Last Admin: 03/28/17 09:19 Dose: 75 mg Docusate Sodium (Colace Cap*) 200 mg PO BID [facility] Last Admin: 03/28/17 09:19 Dose: 200 mg Dofetilide (Tikosyn Cap*) 250 mcg PO 0800,1999 [facility] Last Admin: 03/28/17 09:20 Dose: 250 mcg Levothyroxine Sodium (Synthroid Tab*) 100 mcg PO DAILY@0600 [facility] Last Admin: 03/28/17 05:33 Dose: 100 mcg Lidocaine (Lidoderm 5% Patch*) 1 patch TRANSDERM DAILY PRN PRN Reason: PAIN Last Admin: 03/25/17 09:21 Dose: 1 patch Melatonin (Melatonin (Nf)) 3 mg PO BEDTIME PRN; Protocol PRN Reason: Sleep Metoprolol Succinate (Toprol Xl Tab*) 50 mg PO DAILY [facility] Last Admin: 03/28/17 09:19 Dose: 50 mg Omeprazole (Prilosec Cap*) 20 mg PO DAILY [facility] Last Admin: 03/28/17 09:20 Dose: 20 mg Pharmacy Profile Note (Lidocaine Patch Remove*) 1 note PATCH OFF 2100 [facility] Last Admin: 03/27/17 20:33 Dose: Not Given Tramadol HCl (Ultram*) 25 mg PO TID PRN PRN Reason: PAIN Last Admin: 03/25/17 09:22 Dose: 25 mg Vital Signs - 8 hr 03/28/17 03/28/17 08:40 10:01 Pulse Rate 102 Respiratory 18 18 Rate Blood Pressure 149/76 (mmHg) O2 Sat by Pulse 96 Oximetry Oxygen Devices in Use Now: None Appearance: Patient is an 86yo female who appears stated age and is sitting in the bed with constant movements. Eyes: No Scleral Icterus, PERRLA Ears/Nose/Mouth/Throat: NL Teeth, Lips, Gums, Clear Oropharnyx, Mucous Membranes Moist Neck: NL Appearance and Movements; NL JVP, Trachea Midline Respiratory: Symmetrical Chest Expansion and Respiratory Effort, Clear to Auscultation Cardiovascular: NL Sounds; No Murmurs; No JVD, RRR, No Edema Abdominal: NL Sounds; No Tenderness; No Distention, No Hepatosplenomegaly Lymphatic: No Cervical Adenopathy Extremities: No Edema, No Clubbing, Cyanosis Skin: No Rash or Ulcers, No Nodules or Sclerosis Neurological: NL Sensation, - - A/Ox1, constant serpiginious movements. Reflexes unremarkable. Result Diagrams: 03/27/17 08:13 03/27/17 06:40 Additional Lab and Data: Lab Results Microbiology and Other Data: Microbiology 03/25/17 02:27 Nasal Screen MRSA (PCR)(ANDRES) - Final Nasal Mrsa Detected Assess/Plan/Problems-Billing Assessment: 86 yo f with h/o vertebral fractures, a. fib (on tikosyn and Pradaxa ), pacer, polycythemia vera( on hydroxyurea), ESBL E. coli (on nitrofurantoin recently) presents with lethargy, worsening confusion and now chorea like movements. - Patient Problems (1) Chorea Current Visit: Yes Status: Acute Code(s): G25.5 - OTHER CHOREA SNOMED Code (s): 608122976 Comment: Appreciates neurological consultation. No obvious cause of movement disorder, unlikely consequence of degenerative neurological disorder, no obvious medication cause. Will discontinue Celexa and assess for changes. (2) Atrial fibrillation Current Visit: No Status: Acute Code(s): I48.91 - UNSPECIFIED ATRIAL FIBRILLATION SNOMED Code(s): 03888312 Comment: in paced rhythm Continue Tikosyn, Metoprolol and Pradaxa (3) Depression Current Visit: No Status: Acute Code(s): F32.9 - MAJOR DEPRESSIVE DISORDER, SINGLE EPISODE, UNSPECIFIED SNOMED Code(s): 55493362 Comment: Discontinue Celexa to assess for affect on movement disorder. (4) Hypothyroidism Current Visit: No Status: Acute Code(s): E03.9 - HYPOTHYROIDISM, UNSPECIFIED SNOMED Code(s): 61317953 Comment: Continue Synthroid daily TSH 0.29, recommend recheck in 4-6weeks. (5) Polycythemia vera Current Visit: No Status: Acute Code(s): D45 - POLYCYTHEMIA VERA SNOMED Code(s): 090483099 Comment: Discontinue hydroxyurea due to normal blood counts and possible appetite suppression. Followed by Dr. Hall. (6) S/P cardiac pacemaker procedure Current Visit: No Status: Acute Priority: High Onset Date: 11/02/14 Code (s): Z95.0 - PRESENCE OF CARDIAC PACEMAKER SNOMED Code(s): 810174181 (7) Full code status Current Visit: No Status: Acute Code(s): Z78.9 - OTHER SPECIFIED HEALTH STATUS SNOMED Code(s): 648787053 Comment: Family discussing DNR/DNI and hospice. Appreciate palliative consult. (8) Vitamin B12 deficiency Current Visit: Yes Status: Acute Code(s): E53.8 - DEFICIENCY OF OTHER SPECIFIED B GROUP VITAMINS SNOMED Code(s): 430474176 Comment: IM dose of 1,000mcg x1. Will continue oral supplementation. Possible cause of neurological disturbance. (9) DVT prophylaxis Current Visit: No Status: Acute Code(s): LTJ4673 - SNOMED Code(s): 807154218 Comment: Pradaxa Status and Disposition: Inpatient
[2017-03-28] MEDS: Lidocaine Patch REMOVE* 1 NOTE MISC PATCH OFF SCH (20:03)
[2017-03-29] MEDS ORDERED: Ondansetron INJ* 2 MG/ML VIAL IV PRN (03:54)
[2017-03-29] MEDS: Levothyroxine TAB* 100 MCG TAB PO SCH (05:38)
[2017-03-29] MEDS: Dofetilide CAP* 250 MCG PO SCH ×2 (09:49→21:19)
[2017-03-29] MEDS: Metoprolol Succinate XL TAB* 50 MG PO SCH (09:50)
[2017-03-29] MEDS: CMCS: Dabigatran CAP(NF) 75 MG CAP PO SCH ×2 (09:50→21:19)
[2017-03-29] MEDS: Aspirin EC Low Dose* 81 MG TAB.EC PO SCH (09:53)
[2017-03-29] MEDS: Docusate CAP* 100 MG PO SCH ×2 (09:53→21:19)
[2017-03-29] MEDS: Omeprazole CAP* 20 MG PO SCH (09:53)
--- NOTE | 2017-03-29 15:46 | PN ---
Subjective Date of Service: 03/29/17 Interval History: Patient has significant decrease in activity and engagement. Patient is not eating more than a couple bites of each meal. Patient requested ice cream but was only able to eat a couple bites of it. Patient has slight decrease in restless movements. Patient unable to engage with ROS. Discussed plan with family and they are in agreement that the patient would want comfort only measures and even though she is deteriorating she would not want invasive measures. They are in agreement with the plan to discharge to [facility] tomorrow and to pursue hospice from there. Family History: Unchanged from Admission Social History: Unchanged from Admission Past Medical History: Unchanged from Admission Objective Active Medications: Acetaminophen (Tylenol Tab*) 650 mg PO Q6H PRN PRN Reason: FEVER/PAIN Albuterol (Ventolin 2.5 Mg/3 Ml Neb.Selma*) 2.5 mg INH Q2H PRN PRN Reason: SOB/WHEEZING Aspirin (Aspirin Ec Low Dose*) 81 mg PO QAM [facility] Last Admin: 03/29/17 09:53 Dose: Not Given Dabigatran (Pradaxa Cap(Nf)) 75 mg PO BID [facility] Last Admin: 03/29/17 09:50 Dose: 75 mg Docusate Sodium (Colace Cap*) 200 mg PO BID [facility] Last Admin: 03/29/17 09:53 Dose: Not Given Dofetilide (Tikosyn Cap*) 250 mcg PO 0800,1999 [facility] Last Admin: 03/29/17 09:49 Dose: 250 mcg Levothyroxine Sodium (Synthroid Tab*) 100 mcg PO DAILY@0600 [facility] Last Admin: 03/29/17 05:38 Dose: 100 mcg Lidocaine (Lidoderm 5% Patch*) 1 patch TRANSDERM DAILY PRN PRN Reason: PAIN Last Admin: 03/25/17 09:21 Dose: 1 patch Melatonin (Melatonin (Nf)) 3 mg PO BEDTIME PRN; Protocol PRN Reason: Sleep Metoprolol Succinate (Toprol Xl Tab*) 50 mg PO DAILY [facility] Last Admin: 03/29/17 09:50 Dose: 50 mg Omeprazole (Prilosec Cap*) 20 mg PO DAILY [facility] Last Admin: 03/29/17 09:53 Dose: 20 mg Ondansetron HCl (Zofran Inj*) 4 mg IV Q6H PRN PRN Reason: NAUSEA Last Admin: 03/29/17 05:38 Dose: 4 mg Pharmacy Profile Note (Lidocaine Patch Remove*) 1 note PATCH OFF [address] [facility] Last Admin: 03/28/17 20:03 Dose: Not Given Tramadol HCl (Ultram*) 25 mg PO TID PRN PRN Reason: PAIN Last Admin: 03/25/17 09:22 Dose: 25 mg Vital Signs - 8 hr 03/29/17 03/29/17 03/29/17 07:46 08:52 10:02 Temperature 98.2 F Pulse Rate 99 114 Respiratory 18 18 24 Rate Blood Pressure 90/71 (mmHg) O2 Sat by Pulse 97 94 Oximetry 03/29/17 12:02 Temperature 98.4 F Pulse Rate 100 Respiratory 20 Rate Blood Pressure 121/69 (mmHg) O2 Sat by Pulse 96 Oximetry Oxygen Devices in Use Now: None Appearance: Patient is an 86yo female sitting in the bed in constant movement. Eyes: No Scleral Icterus, PERRLA Ears/Nose/Mouth/Throat: NL Teeth, Lips, Gums, Clear Oropharnyx, Mucous Membranes Moist Neck: NL Appearance and Movements; NL JVP, Trachea Midline Respiratory: Symmetrical Chest Expansion and Respiratory Effort, Clear to Auscultation Cardiovascular: NL Sounds; No Murmurs; No JVD, RRR, No Edema Abdominal: NL Sounds; No Tenderness; No Distention, No Hepatosplenomegaly Lymphatic: No Cervical Adenopathy Extremities: No Edema, No Clubbing, Cyanosis Skin: No Rash or Ulcers, No Nodules or Sclerosis Neurological: NL Sensation, NL Muscle Strength and Tone, - - A/Ox1, Athentenoid movements. CN II-XII intact. Result Diagrams: 03/27/17 08:13 03/27/17 06:40 Additional Lab and Data: Lab Results Microbiology and Other Data: Microbiology 03/25/17 02:27 Nasal Screen MRSA (PCR)(ANDRES) - Final Nasal Mrsa Detected Assess/Plan/Problems-Billing Assessment: 86 yo f with h/o vertebral fractures, a. fib (on tikosyn and Pradaxa ), pacer, polycythemia vera( on hydroxyurea), ESBL E. coli (on nitrofurantoin recently) presents with lethargy, worsening confusion and now chorea like movements. - Patient Problems (1) Failure to thrive Current Visit: Yes Status: Acute Code(s): BWR1630 - SNOMED Code(s): 14412297 Comment: Patient is not eating or drinking more than a few bites every meal. Unknown cause of patient's deterioration. No reversible cause identified. Probable progressive neurological deterioration with atypical presentation. Family is interested in hospice which will be arranged through [facility]. (2) Chorea Current Visit: Yes Status: Acute Code(s): G25.5 - OTHER CHOREA SNOMED Code (s): 042740898 Comment: Appreciates neurological consultation. No obvious cause of movement disorder, unlikely consequence of degenerative neurological disorder, no obvious medication cause. Celexa discontinued without change. (3) Atrial fibrillation Current Visit: No Status: Acute Code(s): I48.91 - UNSPECIFIED ATRIAL FIBRILLATION SNOMED Code(s): 68349013 Comment: in paced rhythm Continue Tikosyn, Metoprolol and Pradaxa (4) Depression Current Visit: No Status: Acute Code(s): F32.9 - MAJOR DEPRESSIVE DISORDER, SINGLE EPISODE, UNSPECIFIED SNOMED Code(s): 56161545 Comment: Discontinue Celexa to assess for affect on movement disorder. (5) Hypothyroidism Current Visit: No Status: Acute Code(s): E03.9 - HYPOTHYROIDISM, UNSPECIFIED SNOMED Code(s): 44696680 Comment: Continue Synthroid daily TSH 0.29, recommend recheck in 4-6weeks. (6) Polycythemia vera Current Visit: No Status: Acute Code(s): D45 - POLYCYTHEMIA VERA SNOMED Code(s): 199337043 Comment: Discontinue hydroxyurea due to normal blood counts and possible appetite suppression. Followed by Dr. Hall. (7) S/P cardiac pacemaker procedure Current Visit: No Status: Acute Priority: High Onset Date: 11/02/14 Code (s): Z95.0 - PRESENCE OF CARDIAC PACEMAKER SNOMED Code(s): 906299764 (8) Full code status Current Visit: No Status: Acute Code(s): Z78.9 - OTHER SPECIFIED HEALTH STATUS SNOMED Code(s): 086244210 Comment: Family discussing DNR/DNI and hospice. Appreciate palliative consult. (9) Vitamin B12 deficiency Current Visit: Yes Status: Acute Code(s): E53.8 - DEFICIENCY OF OTHER SPECIFIED B GROUP VITAMINS SNOMED Code(s): 076300820 Comment: IM dose of 1,000mcg x1. Will continue oral supplementation. Possible cause of neurological disturbance. (10) DVT prophylaxis Current Visit: No Status: Acute Code(s): GFF7220 - SNOMED Code(s): 574198201 Comment: Pradaxa Status and Disposition: Inpatient. Hopeful Discharge Tomorrow.
[2017-03-29] MEDS: Lidocaine Patch REMOVE* 1 NOTE MISC PATCH OFF SCH (21:07)
[2017-03-30] MEDS: Levothyroxine TAB* 100 MCG TAB PO SCH (05:13)
[2017-03-30] MEDS ORDERED: Cyanocobalamin TAB* 500 MCG PO SCH (09:00)
--- NOTE | 2017-03-30 10:00 | DS ---
CC: [facility]; Dr. Cassie Sim; Dr. Harvinder Lemons * DATE OF ADMISSION: 03/24/17 DATE OF DISCHARGE: 03/30/17 PRIMARY CARE PROVIDER: Dr. Cassie Sim MY ATTENDING WHILE IN HOSPITAL: Dr. Nery Pratt * (dictated by NURIS Zuniga) CONSULTING PROVIDER: Dr. Harvinder Lemons PRIMARY DISCHARGE DIAGNOSES: 1. Failure to thrive. 2. Choreoathatoid movements of unknown etiology. 3. Lethargy. 4. Confusion. SECONDARY DISCHARGE DIAGNOSES: 1. Frequent falls. 2. Multiple spinal fractures. 3. Atrial fibrillation. 4. Hypertension. 5. Hyperlipidemia. 6. Polycythemia vera. 7. Hypothyroidism. 8. Migraines. 9. IBS. 10. Diverticulosis. 11. Depression. 12. Anxiety. 13. Osteoporosis. STUDIES DONE WHILE IN THE HOSPITAL: 1. Chest x-ray from 03/24/17 - read as no radiographic evidence for acute cardiopulmonary abnormality on this portable chest x-ray. 2. Electrocardiogram from 03/24/17 - shows normal sinus rhythm with atrial paced rhythm, left axis deviation, no ST segment abnormalities, QTC 454, rate of 100, no other abnormalities. 3. Brain CT from 03/24/17 - read as chronic age-appropriate finding as described above without definite acute intracranial process. Age-related changes are symmetrical involutional changes, mild periventricular and subcortical white matter hypoattenuation most consistent with chronic microvascular disease, no intracranial hemorrhage, calcified subcutaneous granuloma overlying the right frontal bone. MEDICATIONS AT DISCHARGE: 1. Pradaxa 75 mg po bid. 2. Tikosyn 250 mcg po bid. 3. Metoprolol succinate 50 mg po daily. 4. Polyethylene glycol 17 grams po daily. 5. Synthroid 125 mcg po daily. 6. Tramadol 25 mg po 6 hours as needed. 7. Tylenol 325 mg po q 6 hours as needed. 8. Lidocaine patch, one patch transdermal daily as needed. 9. Ranitidine 300 mg at bedtime. 10. Magnesium oxide 400 mg po daily. 11. Milk of magnesia 30 mL po q 24 hours as needed. 12. Vitamin B12 1000 mcg po daily. NEW MEDICATION AT DISCHARGE: 1. Vitamin B12. MEDICATIONS DISCONTINUED AT DISCHARGE: 1. Hydroxyurea 500 mg po daily. 2. Nitrofurantoin 100 mg po bid. 3. Mirtazapine 0.5 mg po at bedtime. 4. Ferrous sulfate 325 mg po daily. 5. Citalopram 20 mg po daily. HOSPITAL COURSE: This is a brief summary of the patient's presentation; for more details, please see the history and physical from Dr. James Cash on 03/25/17. In brief, the patient is an 85-year-old female with past medical history significant for the above who presented with increased confusion and lethargy for three days. The patient was unable to give information beyond this. Patient was recently admitted to the hospital in January 2017, treated for a urinary tract infection and she had also sustained a spinal fracture, she was discharged to [facility] for rehabilitation and physical therapy. According to nursing staff, she had been not actively engaging in rehab and had been significantly declining, not eating very much. Patient had no focal deficits. Patient's confusion improved after 2 liters, but not entirely after 2 liters of intravenous fluids. The patient was recently started on Remeron and Macrodantin. Patient also had chorea-like movements in all extremities. The Macrodantin and Remeron were stopped as this may have been causing abnormality; however, it was unlikely. Patient had no signs of UTI and her Macrodantin was not continued. Patient had negative influenza. Patient had no growth on her urine culture. Patient's other laboratory abnormalities included low vitamin B12, high glucose , CRP of 41.22, no other abnormalities. Patient was seen in consultation by Neurology and it was believed that the involuntary movements and mental status changes were due to a toxic metabolic process. Patient had an SPEP, a rheumatoid factor CCP and CHERYL, total protease and myeloperoxidase antibody drawn. Patient also had a malcom SPEP, vitamin B12. Patient's vitamin B12 was 159; patient's SPEP and UPEP were unremarkable. Patient continued to decline. Patient's mental status did not improve and patient was unable to take more than a few bites of food at any given time. Patient was unable to have a brain MRI due to pacemaker. Patient had no signs and symptoms of CVA. Palliative care was consulted and was unable to comment on her hospice eligibility at that time time due to her incomplete neurologic and hematologic workup. However, patient continued to decline. Patient states that she's lost quite a bit of weight previously to this admission at patient's most recent hospitalization; however, she's only lost approximately 3 lbs since January. However, patient is not eating much at all. Patient's medications, including hydroxyurea, citalopram, Remeron and nitrofurantoin as well as ferrous sulfate were stopped due to possible appetite suppression. Patient's hydroxyurea was stopped as well because her serum viscosity was normal, and her blood counts were within normal limits. Patient is stable. Patient's blood pressure is on the low end of normal, which has been for her entire hospitalization. Patient made her wishes very clear to her family that she did not want a feeding tube or any other artificial life- prolonging nutrition. It is believed by Neurology that even though we do not know what is causing her neurologic degeneration and involuntary movements, that her progressive decline due to her lack of appetite precludes any heroic treatments or intervention which the family agreed with, and would like to pursue Hospice after discharge from this facility. PHYSICAL EXAM DAY OF DISCHARGE: The patient is an 86-year-old female who appears stated age and sitting on the bed with abnormal posturing and constant athetoid movements. Vital signs at time of discharge - temperature 98.8, pulse rate 99, respiratory rate 18, oxygen saturation 94% on room air, blood pressure 92/57. HEENT - head normocephalic, atraumatic. Sclerae anicteric, no conjunctival injection. Nasal mucosa moist. Patient will not open her mouth. Neck - supple, non-tender, no lymphadenopathy, no carotid bruit auscultated. Cardiac - irregularly irregular rhythm, rate 80-100, pulse 2+ in bilateral extremities. Posterior tibialis and radial areas - no lower extremity edema is noted. Respiratory - clear to auscultation bilaterally with no wheeze, rales, rhonchi. Good air exchange bilaterally. Abdomen - soft, non-tender, non- distended, bowel sounds present, normoactive all four quadrants. No hepatosplenomegaly, no abdominal bruits auscultated. Genitourinary - no suprapubic tenderness or CVA tenderness. Skin - clean, dry, intact. No rash. Neuro - patient is unable to cooperate with neurological testing, reflexes 1+ in bilateral radial, patellar and Achilles areas. No other focal deficits noted. Continued choreoathetoid movements. Alert and oriented only to self. Psychiatric - patient is significantly subdued and lethargic. LABORATORY DATA ON DAY OF DISCHARGE: Not performed on day of discharge. DISCHARGE PLAN: Patient will be discharged to [facility]. It has been discussed with the family at length that patient should have Hospice set up when possible after she returns to [facility]. Patient has had several of her medications discontinued as outlined above to help stimulate her appetite. Patient should eat only when she wants, and should focus on high-calorie foods. Patient is a DNR/DNI, and does not want any artificial nutrition or other life -prolonging measures. Patient should engage in activity as tolerated and have a regular unrestricted diet. TIME SPENT: Approximately 60 minutes were spent on this discharge, 30 of which were spent face to face with the patient obtaining the history and physical and discussing the treatment plan. NURIS ZUNIGA [id number]/[facility] #: [id number] DOLLY
[2017-03-30 10:20] VITALS: BP 98/68
[2017-03-30] MEDS: Omeprazole CAP* 20 MG PO SCH (10:22)
[2017-03-30] MEDS: CMCS: Dabigatran CAP(NF) 75 MG CAP PO SCH (10:22)
[2017-03-30] MEDS: Aspirin EC Low Dose* 81 MG TAB.EC PO SCH (10:22)
[2017-03-30] MEDS: Dofetilide CAP* 250 MCG PO SCH (10:22)
[2017-03-30] MEDS: Metoprolol Succinate XL TAB* 50 MG PO SCH (10:23)
[2017-03-30] MEDS: Docusate CAP* 100 MG PO SCH (10:23)
== END 2017-03-30 14:08 | DRG 57 ==
LOC: ED 21:58 → MED 03-25 00:39 → OBSVTOIN 03-26 13:34
PROVIDERS: ADMIT Hospitalist; ATTEND Internal Medicine
DX: G25.5 Other chorea (principal); I48.2 Chronic atrial fibrillation; E86.0 Dehydration; D45 Polycythemia vera; K26.9 Duodenal ulcer, unspecified as acute or chronic, without hemorrhage or perforation; E03.9 Hypothyroidism, unspecified; E53.8 Deficiency of other specified B group vitamins; E78.5 Hyperlipidemia, unspecified; R41.0 Disorientation, unspecified; R62.7 Adult failure to thrive; R53.83 Other fatigue; F32.9 Major depressive disorder, single episode, unspecified; G43.909 Migraine, unspecified, not intractable, without status migrainosus; G89.29 Other chronic pain; I10 Essential (primary) hypertension; K58.9 Irritable bowel syndrome, unspecified; K57.90 Diverticulosis of intestine, part unspecified, without perforation or abscess without bleeding; M19.90 Unspecified osteoarthritis, unspecified site; M81.0 Age-related osteoporosis without current pathological fracture; F41.9 Anxiety disorder, unspecified; Z98.42 Cataract extraction status, left eye; Z98.41 Cataract extraction status, right eye; Z90.710 Acquired absence of both cervix and uterus; Z88.2 Allergy status to sulfonamides; Z88.8 Allergy status to other drugs, medicaments and biological substances; Z95.0 Presence of cardiac pacemaker; Z91.030 Bee allergy status; Z91.041 Radiographic dye allergy status; Z86.19 Personal history of other infectious and parasitic diseases; Z82.49 Family history of ischemic heart disease and other diseases of the circulatory system; Z83.3 Family history of diabetes mellitus; Z80.3 Family history of malignant neoplasm of breast; Z87.891 Personal history of nicotine dependence; Z82.5 Family history of asthma and other chronic lower respiratory diseases; Z82.3 Family history of stroke; Z91.81 History of falling
CPT/HCPCS: 36415; 70450; 71045; 80048; 80053; 81003; 81015; 82607; 83516; 83605; 83735; 83880; 84155; 84156; 84165; 84166; 84443; 84484; 85025; 85610; 85652; 85730; 85810; 86038; 86140; 86200; 86431; 87040; 87502; 87641; 93005; 99285; A9270-GY; G0378; G8987-GO-CL; G8988-GO-CI; J2405; J3420